=== PATIENT | female | born 1945 | race Caucasian/White ===

== ENCOUNTER 2016-08-21 10:30 | Emergency (ER) | payer MEDICARE ==
[2016-08-21] MEDS ORDERED: NS 0.9% 1000 ML* 2,000 ML IV ONE (12:08)
[2016-08-21 12:24] LABS: Hematocrit 43 % (35-47); Mean Corpuscular HGB Conc 33 g/dl (31-36); Mean Corpuscular Hemoglobin 28 pg (27-31); Mean Corpuscular Volume 87 fL (80-97); Mean Platelet Volume 7 um3 (7.4-10.4); Red Blood Count 4.94 10^6/ul (4.0-5.4); Red Cell Distribution Width 14 % (10.5-15); White Blood Count 13.8 10^3/ul (3.5-10.8)
[2016-08-21 12:35] LABS: Urine Bacteria Absent (Absent); Urine Bilirubin Negative (Negative); Urine Glucose Negative (Negative); Urine Nitrite Negative (Negative)
[2016-08-21 12:37] LABS: Albumin 4.1 g/dL (3.2-5.2); C Reactive Protein 1.1 mg/L (< 5.00); Calcium 9.7 mg/dL (8.6-10.3); EGFR African American 89.6 (>60); EGFR Non-African American 69.7 (>60); Globulin 2.8 g/dL (2-4); Potassium 4.2 mmol/L (3.5-5.0); Total Bilirubin 0.3 mg/dL (0.2-1.0); Total Protein 6.9 g/dL (6.4-8.9)
[2016-08-21 12:38] LABS: Troponin I 0.01 ng/mL (<0.04)
[2016-08-21] MEDS ORDERED: Iohexol 300* (CONTRAST) 10 ML SDV IV ONE (13:20)
--- NOTE | 2016-08-21 15:06 | RAD ---
CLINICAL HISTORY: Left-sided abdominal pain, anorexia, colitis COMPARISON: April 27, 2010 TECHNIQUE: Multiple contiguous axial CT scans were obtained of the abdomen and pelvis after the administration of intravenous contrast. Coronal and sagittal multiplanar reformations are submitted for review. Oral contrast was administered. Delayed images were obtained through the abdomen FINDINGS: LUNG BASES: The lung bases are clear. LIVER: The liver is normal in shape, size, contour, and attenuation. BILE DUCTS: There is no intrahepatic or extrahepatic biliary dilatation. GALLBLADDER: The gallbladder is normal, without pericholecystic inflammatory change. PANCREAS: The pancreas is normal, without mass or ductal dilatation. SPLEEN: There are calcified granulomas of the spleen UPPER GI TRACT: Evaluation of the gastrointestinal tract is limited by incomplete gastric distention. The upper GI tract is unremarkable. SMALL BOWEL AND MESENTERY: The small bowel is normal in contour, course, and caliber. There is no obstruction or dilatation. COLON: There are multiple diverticula of the sigmoid colon. There is no pericolonic inflammatory change. There is a tubular, vermiform, hollow viscus that is blind ending, and originates from the cecum, consistent with a normal appendix. There is no periappendiceal inflammatory change. ADRENALS: Normal bilaterally. KIDNEYS: There is a small exophytic cyst of the midpole of the left kidney. This is stable from the previous examination BLADDER: The bladder is smooth in contour. PELVIC ORGANS: The uterus and adnexa are grossly normal for technique. AORTA: The aorta is normal. IVC: Unremarkable LYMPH NODES: There is no lymphadenopathy by size criteria. ABDOMINAL WALL: There is no evidence for abdominal wall hernia. BONES AND SOFT TISSUES: There is osteoarthritis of the hips. There is osteitis pubis OTHER: None IMPRESSION: DIVERTICULOSIS
[2016-08-21 16:23] VITALS: BP 149/85
--- NOTE | 2016-08-21 17:47 | ED ---
jennifer Hsieh Timothy, scribed for Sam Estrella MD on 08/21/16 at 1120 . Abdominal Pain/Female - HPI Summary HPI Summary: Mayi Marley is a 70 yo female presenting to [facility] with 7/10 pelvic pain radiating to her left flank and groin since 08/15/16. She states she has noticed her stomach gurgling in the past 3 days, and it feels distended now. She has some mild dysuria. She states her pain increases when she eats food. She also has numbness bilaterally in her feet. she states she was sick 2 weeks ago and had diarrhea. She denies vomiting, vaginal bleeding, fever. She self-medicated with ABx for several days under the assumption she had a UTI, but her PCP has informed her she does not have a UTI. She has been on ABx for a long time due to lyme disease. Her MHx includes palpitations, chronic sinus problems, Ciliac disease, irritable bowel, osteoarthritis, claustrophobia. Her PCP is Dr. Mike. - History of Current Complaint Chief Complaint: EDAbdPain Stated Complaint: PELVIC PAIN Time Seen by Provider: 08/21/16 11:22 Hx Obtained From: Patient ?: No Onset/Duration: Sudden Onset, Lasting Days, Still Present Timing: Constant Severity Initially: Moderate Severity Currently: Moderate Pain Intensity: 7 Pain Scale Used: 0-10 Numeric Location: Suprapubic, Groin, Flank Radiates: No Aggravating Factor(s): Food Associated Signs and Symptoms: Positive: Other: - dysuria. 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 Denies: Hx Hypertension, Hx Pacemaker/ICD Respiratory History: Reports: Other Respiratory Problems/Disorders - CHRONIC SINUS PROBLEMS-POST NASAL DRIP GI History: Reports: Hx Irritable Bowel, Other GI Disorders - CILIAC DISEASE History: Denies: Hx Dialysis, Hx Renal Disease Musculoskeletal History: Reports: Hx Arthritis - OSTEO Denies: Hx Osteoporosis Sensory History: Reports: Hx Contacts or Glasses - READING GLASSES Denies: Hx Hearing Aid Opthamlomology History: Reports: Hx Contacts or Glasses - READING GLASSES Psychiatric History: Denies: Hx Eating Disorder, Hx Panic Disorder, Hx of Violent Episodes Against Others - Cancer History Hx Chemotherapy: No Hx Radiation Therapy: No - Surgical History Surgery Procedure, Year, and Place: TUBAL LIGATION-1974 WISDOM TEETH REMOVED COLONOSCOPY Hx Anesthesia Reactions: No - Immunization History Date of Tetanus Vaccine: unknown Infectious Disease History: No Infectious Disease History: Denies: Traveled Outside the [place] in Last 30 Days - Family History Known Family History: Positive: Other - breast CA - Social History Alcohol Use: Weekly Alcohol Amount: WINE ON OCCASION Substance Use Type: Reports: None Smoking Status (MU): Former Smoker Type: Cigarettes Amount Used/How Often: 1 PACK EVERY 2 WEEKS X 10 YRS Review of Systems Constitutional: Negative Eyes: Negative ENT: Negative Cardiovascular: Negative Respiratory: Negative Gastrointestinal: Other - "stomach gurgling" Positive: Diarrhea Genitourinary: Other - pelvic pain Positive: dysuria. Negative: discharge Musculoskeletal: Negative Skin: Negative Positive: Numbness - bilateral feet Psychological: Normal All Other Systems Reviewed And Are Negative: Yes Physical Exam - Summary Physical Exam Summary: The patient is well-nourished in no acute distress and in no acute pain. Pt is slightly hard of hearing. The skin is warm and dry and skin color reflects adequate perfusion. HEENT: The head is normocephalic and atraumatic. The pupils are equal and reactive. The conjunctivae are clear and without drainage. Nares are patent and without drainage. Mouth reveals dry mucous membranes and the throat is without erythema and exudate. The external ears are intact. The ear canals are patent and without drainage. The tympanic membranes are intact. Neck is supple with full range of motion and non-tender. There are no carotid bruits. There is no neck vein distension. Respiratory: Chest is non-tender. Lungs are clear to auscultation and breath sounds are symmetrical and equal. Cardiovascular: Hear is regular rate and rhythm. There is no murmur or rub auscultated. There is no peripheral edema and pulses are symmetrical and equal. Good pulses distally. Abdomen: The abdomen is soft and tender in the LUQ and LLQ. There are hyperactive bowel sounds heard in all four quadrants and there is no organomegaly palpated. Left muscular back tenderness. No abd bruits. Musculoskeletal: There is no back pain noted. Extremities are non-tender with full range of motion. There is good capillary refill. There is no peripheral edema or calf tenderness elicited. No pain with flexion of her legs. Neurological: Patient is alert and oriented to person, place and time. The patient has symmetrical motor strength in all four extremities. Cranial nerves are grossly intact. Deep tendon reflexes are symmetrical and equal in all four extremities. Psychiatric: The patient has an appropriate affect and does not exhibit any depression. She is slightly anxious. Triage Information Reviewed: Yes Vital Signs On Initial Exam: Initial Vitals Temp Pulse Resp BP Pulse Ox 96.8 F 87 16 127/65 99 08/21/16 10:41 08/21/16 10:41 08/21/16 10:41 08/21/16 10:41 08/21/16 10:41 Vital Signs Reviewed: Yes Diagnostics - Vital Signs Vital Signs Temp Pulse Resp BP Pulse Ox 08/21/16 10:41 96.8 F 87 16 127/65 99 - Laboratory Lab Results: Lab Results 08/21/16 08/21/16 08/21/16 Range/Units 11:35 11:35 11:35 WBC 13.8 H (3.5-10.8) 10^3/ul RBC 4.94 (4.0-5.4) 10^6/ul Hgb 14.0 (12.0-16.0) g/dl Hct 43 (35-47) % MCV 87 (80-97) fL MCH 28 (27-31) pg MCHC 33 (31-36) g/dl RDW 14 (10.5-15) % Plt Count 296 (150-450) 10^3/ul MPV 7 L (7.4-10.4) um3 Neut % (Auto) 82.4 (38-83) % Lymph % (Auto) 9.1 L (25-47) % [place] % (Auto) 7.9 (1-9) % Eos % (Auto) 0.1 (0-6) % Baso % (Auto) 0.5 (0-2) % Absolute Neuts (auto) 11.4 H (1.5-7.7) 10^3/ul Absolute Lymphs (auto) 1.3 (1.0-4.8) 10^3/ul Absolute Monos (auto) 1.1 H (0-0.8) 10^3/ul Absolute Eos (auto) 0 (0-0.6) 10^3/ul Absolute Basos (auto) 0.1 (0-0.2) 10^3/ul Absolute Nucleated RBC 0.01 10^3/ul Nucleated RBC % 0 Sodium 132 L (133-145) mmol/L Potassium 4.2 (3.5-5.0) mmol/L Chloride 99 L (101-111) mmol/L Carbon Dioxide 27 (22-32) mmol/L Anion Gap 6 (2-11) mmol/L BUN 13 (6-24) mg/dL Creatinine 0.81 (0.51-0.95) mg/dL Est GFR ( Amer) 89.6 (>60) Est GFR (Non-Af Amer) 69.7 (>60) BUN/Creatinine Ratio 16.0 (8-20) Glucose 84 (70-100) mg/dL Lactic Acid (0.5-2.0) mmol/L Calcium 9.7 (8.6-10.3) mg/dL Total Bilirubin 0.30 (0.2-1.0) mg/dL AST 23 (13-39) U/L ALT 18 (7-52) U/L Alkaline Phosphatase 73 (34-104) U/L Total Creatine Kinase 61 (10-223) U/L Troponin I 0.01 (<0.04) ng/mL C-Reactive Protein 1.10 (< 5.00) mg/L B-Natriuretic Peptide ( - 100) pg/mL Total Protein 6.9 (6.4-8.9) g/dL Albumin 4.1 (3.2-5.2) g/dL Globulin 2.8 (2-4) g/dL Albumin/Globulin Ratio 1.5 (1-3) Amylase 48 (29-103) U/L Lipase 25 (11.0-82.0) U/L Urine Color Yellow Urine Appearance Clear Urine pH 6.0 (5-9) Ur Specific [place] 1.016 (1.010-1.030) Urine Protein Negative (Negative) Urine Ketones Negative (Negative) Urine Blood Negative (Negative) Urine Nitrate Negative (Negative) Urine Bilirubin Negative (Negative) Urine Urobilinogen Negative (Negative) Ur Leukocyte Esterase Trace H (Negative) Urine WBC (Auto) Trace(0-5/hpf) (Absent) Urine RBC (Auto) 2+(6-10/hpf) H (Absent) Ur Squamous Epith Cells Present H (Absent) Urine Bacteria Absent (Absent) Urine Glucose Negative (Negative) Urine Ascorbic Acid * H (Negative) 08/21/16 08/21/16 Range/Units 11:35 11:35 WBC (3.5-10.8) 10^3/ul RBC (4.0-5.4) 10^6/ul Hgb (12.0-16.0) g/dl Hct (35-47) % MCV (80-97) fL MCH (27-31) pg MCHC (31-36) g/dl RDW (10.5-15) % Plt Count (150-450) 10^3/ul MPV (7.4-10.4) um3 Neut % (Auto) (38-83) % Lymph % (Auto) (25-47) % [place] % (Auto) (1-9) % Eos % (Auto) (0-6) % Baso % (Auto) (0-2) % Absolute Neuts (auto) (1.5-7.7) 10^3/ul Absolute Lymphs (auto) (1.0-4.8) 10^3/ul Absolute Monos (auto) (0-0.8) 10^3/ul Absolute Eos (auto) (0-0.6) 10^3/ul Absolute Basos (auto) (0-0.2) 10^3/ul Absolute Nucleated RBC 10^3/ul Nucleated RBC % Sodium (133-145) mmol/L Potassium (3.5-5.0) mmol/L Chloride (101-111) mmol/L Carbon Dioxide (22-32) mmol/L Anion Gap (2-11) mmol/L BUN (6-24) mg/dL Creatinine (0.51-0.95) mg/dL Est GFR ( Amer) (>60) Est GFR (Non-Af Amer) (>60) BUN/Creatinine Ratio (8-20) Glucose (70-100) mg/dL Lactic Acid 1.3 (0.5-2.0) mmol/L Calcium (8.6-10.3) mg/dL Total Bilirubin (0.2-1.0) mg/dL AST (13-39) U/L ALT (7-52) U/L Alkaline Phosphatase (34-104) U/L Total Creatine Kinase (10-223) U/L Troponin I (<0.04) ng/mL C-Reactive Protein (< 5.00) mg/L B-Natriuretic Peptide 12 ( - 100) pg/mL Total Protein (6.4-8.9) g/dL Albumin (3.2-5.2) g/dL Globulin (2-4) g/dL Albumin/Globulin Ratio (1-3) Amylase (29-103) U/L Lipase (11.0-82.0) U/L Urine Color Urine Appearance Urine pH (5-9) Ur Specific Gonzales (1.010-1.030) Urine Protein (Negative) Urine Ketones (Negative) Urine Blood (Negative) Urine Nitrate (Negative) Urine Bilirubin (Negative) Urine Urobilinogen (Negative) Ur Leukocyte Esterase (Negative) Urine WBC (Auto) (Absent) Urine RBC (Auto) (Absent) Ur Squamous Epith Cells (Absent) Urine Bacteria (Absent) Urine Glucose (Negative) Urine Ascorbic Acid (Negative) Result Diagrams: 08/21/16 11:35 08/21/16 11:35 Lab Statement: Any lab studies that have been ordered have been reviewed, and results considered in the medical decision making process. - CT A/P CT Interpretation: Positive (See Comments) - IMPRESSION: DIVERTICULOSIS CT Interpretation Completed By: Radiologist - EKG 1240 Cardiac Rate: NL - @ 59 BPM EKG Interpretation: NSR @ 59 BPM, normal EKG Re-Evaluation - Re-Evaluation First Eval Re-Evaluation Time: 15:25 Change: Worse Comment: Pt is still in pain and requesting a pelvic exam. Informed Pt of results of imaging and lab studies. Second Eval Re-Evaluation Time: 15:45 Change: Unchanged Comment: Pelvic Exam: whitish discharge, tenderness over right ovary. No cervical motion. No redness or swelling. Tested for gardnerella and yeast. Pt does not want antibiotics. Pt feels uncomofrtable going home, explained to Pt that there are not enough criteria met for admission to [facility]. She denies vomiting and fever Abdominal Pain Fem Course/Dx - Course Course Of Treatment: Mayi Marley is a 70 yo female presenting to [facility] with pelvic pain since 08/15/16. After clinical examination, CT A/P with an impression of diverticulosis and review of her EKG and lab work, she will be discharged home with abdominal pain and appropriate instructions - Diagnoses Differential Diagnosis: Positive: Appendicitis, Diverticulitis, Gall Bladder Disease, Urinary Tract Infection, Other - diverticulosis, bv, RENAL LITHIASIS Provider Diagnoses: Abdominal pain Discharge - Discharge Plan Condition: Stable Disposition: HOME Prescriptions: traMADol TAB* [Ultram*] 50 mg PO Q6HR PRN #30 tab MDD 4 PRN Reason: pain Patient Education Materials: Acute Abdominal Pain (ED) Forms: *Work Release Referrals: Seth Gama MD [Primary Care Provider] - 2 Days Anatoliy Mike MD [Medical Doctor] - 2 Days Additional Instructions: Please follow up with Dr. Mike and your primary care physician regarding your visit to the emergency department today. Return to the emergency department with any new or recurring symptoms. The documentation as recorded by the jennifer muhammad Timothy accurately reflects the service I personally performed and the decisions made by , Sam Estrella MD.
== END 2016-08-21 16:24 | disposition home or self-care (01) ==
LOC: ED 10:30
DX: R10.9 Unspecified abdominal pain (principal); R94.31 Abnormal electrocardiogram [ECG] [EKG]; R00.1 Bradycardia, unspecified; R10.819 Abdominal tenderness, unspecified site; Z87.891 Personal history of nicotine dependence; K90.0 Celiac disease; Z88.0 Allergy status to penicillin
CPT/HCPCS: 36415; 74177; 80053; 81003; 81015; 82150; 82550; 83605; 83690; 83880; 84484; 85025; 86140; 87086; 87480; 87510; 87660; 93005; 96360; 99284; Q9967

== ENCOUNTER 2016-08-24 10:27 | Inpatient (IN) | payer MEDICARE ==
[2016-08-24] MEDS ORDERED: NS 0.9% 1000 ML* 2,000 ML IV ONE (11:29)
[2016-08-24 12:23] LABS: Hematocrit 42 % (35-47); Hemoglobin 13.6 g/dl (12.0-16.0); Mean Corpuscular HGB Conc 33 g/dl (31-36); Mean Corpuscular Hemoglobin 29 pg (27-31); Mean Corpuscular Volume 87 fL (80-97); Mean Platelet Volume 7 um3 (7.4-10.4); Red Blood Count 4.77 10^6/ul (4.0-5.4); Red Cell Distribution Width 14 % (10.5-15); White Blood Count 11.4 10^3/ul (3.5-10.8)
--- NOTE | 2016-08-24 12:35 | RAD ---
INDICATION: Headache and weakness. COMPARISON: Comparison is made with a prior MRI of the brain from February 09, [address] of the brain from March 16, 2003. TECHNIQUE: Contiguous axial sections of the brain were obtained from the skull base to the vertex without contrast. FINDINGS: The ventricles, cisterns and sulci are enlarged consistent with age-related atrophy. No significant focal abnormality or mass effect is seen. There is no evidence for hemorrhage. No significant focal osseous abnormality is seen. The visualized portion of the paranasal sinuses and mastoid air cells appear clear. IMPRESSION: NO EVIDENCE FOR GROSS ACUTE INFARCT, MASS EFFECT OR HEMORRHAGE.
[2016-08-24 12:43] LABS: ALT 17 U/L (7-52); AST 20 U/L (13-39); Albumin 3.8 g/dL (3.2-5.2); Alkaline Phosphatase 69 U/L (34-104); Anion Gap 7 mmol/L (2-11); BUN/Creatinine Ratio 29.6 (8-20); Blood Urea Nitrogen 21 mg/dL (6-24); C Reactive Protein 2.05 mg/L (< 5.00); CO2 Carbon Dioxide 27 mmol/L (22-32); Calcium 9.3 mg/dL (8.6-10.3); Chloride 100 mmol/L (101-111); EGFR African American 104.4 (>60); EGFR Non-African American 81.2 (>60); Globulin 2.8 g/dL (2-4); Glucose 97 mg/dL (70-100); Magnesium 2.2 mg/dL (1.9-2.7); Potassium 4.2 mmol/L (3.5-5.0); Sodium 134 mmol/L (133-145); Total Protein 6.6 g/dL (6.4-8.9)
[2016-08-24 12:43] LABS: Urine Bacteria Absent (Absent); Urine Bilirubin Negative (Negative); Urine Glucose Negative (Negative); Urine Nitrite Negative (Negative)
[2016-08-24 13:03] LABS: Acetaminophen < 15 mcg/mL; Alcohol < 10 mg/dL (<10); Salicylate < 2.50 mg/dL (<30)
[2016-08-24 13:13] LABS: TSH (Thyroid Stimulating Horm) 1.47 mcIU/mL (0.34-5.60)
--- NOTE | 2016-08-24 14:18 | ED ---
Aries Hsieh Salem, scribed for Sam Estrella MD on 08/24/16 at 1131 . Abdominal Pain/Female - HPI Summary HPI Summary: Patient is a 70 y/o female who presents to the ED with abd pain. She was in the ER 3 days ago for similar pain. Pt reports trouble sleeping, weakness, and loss of appetite. She also reports pain in the left side of her head and an ear infection in the left ear. She states she can no longer live like this and that she does not want to be sent home like this. - History of Current Complaint Chief Complaint: [facility] Stated Complaint: mhe Time Seen by Provider: 08/24/16 11:02 Hx Obtained From: Patient Onset/Duration: Gradual Onset, Lasting Days Severity Initially: Moderate Severity Currently: Moderate Pain Intensity: 9 Pain Scale Used: 0-10 Numeric Aggravating Factor(s): Nothing Alleviating Factor(s): Nothing Associated Signs and Symptoms: Positive: Other: - Weakness. Trouble sleeping. Loss of appetite. 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 Denies: Hx Hypertension, Hx Pacemaker/ICD Respiratory History: Reports: Other Respiratory Problems/Disorders - CHRONIC SINUS PROBLEMS-POST NASAL DRIP GI History: Reports: Hx Irritable Bowel, Other GI Disorders - CILIAC DISEASE History: Denies: Hx Dialysis, Hx Renal Disease Musculoskeletal History: Reports: Hx Arthritis - OSTEO Denies: Hx Osteoporosis Sensory History: Reports: Hx Contacts or Glasses - READING GLASSES Denies: Hx Hearing Aid Opthamlomology History: Reports: Hx Contacts or Glasses - READING GLASSES Psychiatric History: Denies: Hx Eating Disorder, Hx Panic Disorder, Hx of Violent Episodes Against Others - Cancer History Hx Chemotherapy: No Hx Radiation Therapy: No - Surgical History Surgery Procedure, Year, and Place: TUBAL LIGATION-1974 WISDOM TEETH REMOVED COLONOSCOPY Hx Anesthesia Reactions: No - Immunization History Date of Tetanus Vaccine: unknown Infectious Disease History: No Infectious Disease History: Denies: Traveled Outside the [place] in Last 30 Days - Family History Known Family History: Positive: Other - breast CA - Social History Alcohol Use: Weekly Alcohol Amount: WINE ON OCCASION Substance Use Type: Reports: None Smoking Status (MU): Former Smoker Type: Cigarettes Amount Used/How Often: 1 PACK EVERY 2 WEEKS X 10 YRS Review of Systems Positive: Other - Trouble sleeping. . Negative: Fever Positive: Ear Ache - Left. Positive: Other - Loss of appetite. Positive: Weakness All Other Systems Reviewed And Are Negative: Yes Physical Exam - Summary Physical Exam Summary: The patient appears weak and lethargic. The skin is warm and dry and skin color reflects adequate perfusion. HEENT: The head is normocephalic and atraumatic. The pupils are equal and reactive. The conjunctivae are clear and without drainage. Nares are patent and without drainage. Mouth reveals dry mucous membranes and the throat is without erythema and exudate. The external ears are intact. The ear canals are patent and without drainage or erythema. The tympanic membranes are intact in both ears. Neck is supple with full range of motion and non-tender. There are no carotid bruits. There is no neck vein distension. Respiratory: Chest is non-tender. Lungs are clear to auscultation and breath sounds are symmetrical and equal. Cardiovascular: Hear is regular rate and rhythm. There is no murmur or rub auscultated. There is no peripheral edema and pulses are symmetrical and equal. Abdomen: The abdomen is soft. LUQ pain unchanged from 3 days ago. Musculoskeletal: There is no back pain noted. Extremities are non-tender with full range of motion. There is good capillary refill. There is no peripheral edema or calf tenderness elicited. Left lumbar pericerebral pain. Neurological: Patient is alert and oriented to person, place and time. The patient has symmetrical motor strength in all four extremities. Psychiatric: The patient depressed and uncomfortable. Does not appear to have SI. Triage Information Reviewed: Yes Vital Signs On Initial Exam: Initial Vitals Temp Pulse Resp BP Pulse Ox 97.1 F 80 16 118/65 99 08/24/16 10:31 08/24/16 10:31 08/24/16 10:31 08/24/16 10:31 03/23/17 10:31 Vital Signs Reviewed: Yes Diagnostics - Vital Signs Vital Signs Temp Pulse Resp BP Pulse Ox 08/24/16 11:00 74 13 96 08/24/16 10:54 74 18 122/62 96 08/24/16 10:52 77 15 97 08/24/16 10:31 97.1 F 80 16 118/65 99 - Laboratory Lab Results: Lab Results 08/24/16 08/24/16 08/24/16 Range/Units 12:10 12:10 12:10 WBC 11.4 H (3.5-10.8) 10^3/ul RBC 4.77 (4.0-5.4) 10^6/ul Hgb 13.6 (12.0-16.0) g/dl Hct 42 (35-47) % MCV 87 (80-97) fL MCH 29 (27-31) pg MCHC 33 (31-36) g/dl RDW 14 (10.5-15) % Plt Count 285 (150-450) 10^3/ul MPV 7 L (7.4-10.4) um3 Neut % (Auto) 79.0 (38-83) % Lymph % (Auto) 13.3 L (25-47) % Jackson % (Auto) 6.9 (1-9) % Eos % (Auto) 0.2 (0-6) % Baso % (Auto) 0.6 (0-2) % Absolute Neuts (auto) 9.0 H (1.5-7.7) 10^3/ul Absolute Lymphs (auto) 1.5 (1.0-4.8) 10^3/ul Absolute Monos (auto) 0.8 (0-0.8) 10^3/ul Absolute Eos (auto) 0 (0-0.6) 10^3/ul Absolute Basos (auto) 0.1 (0-0.2) 10^3/ul Absolute Nucleated RBC 0 10^3/ul Nucleated RBC % 0 Sodium 134 (133-145) mmol/L Potassium 4.2 (3.5-5.0) mmol/L Chloride 100 L (101-111) mmol/L Carbon Dioxide 27 (22-32) mmol/L Anion Gap 7 (2-11) mmol/L BUN 21 (6-24) mg/dL Creatinine 0.71 (0.51-0.95) mg/dL Est GFR ( Amer) 104.4 (>60) Est GFR (Non-Af Amer) 81.2 (>60) BUN/Creatinine Ratio 29.6 H (8-20) Glucose 97 (70-100) mg/dL Lactic Acid 0.9 (0.5-2.0) mmol/L Calcium 9.3 (8.6-10.3) mg/dL Magnesium 2.2 (1.9-2.7) mg/dL Total Bilirubin 0.30 (0.2-1.0) mg/dL AST 20 (13-39) U/L ALT 17 (7-52) U/L Alkaline Phosphatase 69 (34-104) U/L Troponin I 1.53 H* (<0.04) ng/mL C-Reactive Protein 2.05 (< 5.00) mg/L B-Natriuretic Peptide ( - 100) pg/mL Total Protein 6.6 (6.4-8.9) g/dL Albumin 3.8 (3.2-5.2) g/dL Globulin 2.8 (2-4) g/dL Albumin/Globulin Ratio 1.4 (1-3) TSH 1.47 (0.34-5.60) mcIU/mL Urine Color Urine Appearance Urine pH (5-9) Ur Specific [place] (1.010-1.030) Urine Protein (Negative) Urine Ketones (Negative) Urine Blood (Negative) Urine Nitrate (Negative) Urine Bilirubin (Negative) Urine Urobilinogen (Negative) Ur Leukocyte Esterase (Negative) Urine WBC (Auto) (Absent) Urine RBC (Auto) (Absent) Ur Squamous Epith Cells (Absent) Urine Bacteria (Absent) Urine Glucose (Negative) Salicylates < 2.50 (<30) mg/dL Acetaminophen < 15 mcg/mL Serum Alcohol < 10 (<10) mg/dL 08/24/16 08/24/16 Range/Units 12:10 12:27 WBC (3.5-10.8) 10^3/ul RBC (4.0-5.4) 10^6/ul Hgb (12.0-16.0) g/dl Hct (35-47) % MCV (80-97) fL MCH (27-31) pg MCHC (31-36) g/dl RDW (10.5-15) % Plt Count (150-450) 10^3/ul MPV (7.4-10.4) um3 Neut % (Auto) (38-83) % Lymph % (Auto) (25-47) % Jackson % (Auto) (1-9) % Eos % (Auto) (0-6) % Baso % (Auto) (0-2) % Absolute Neuts (auto) (1.5-7.7) 10^3/ul Absolute Lymphs (auto) (1.0-4.8) 10^3/ul Absolute Monos (auto) (0-0.8) 10^3/ul Absolute Eos (auto) (0-0.6) 10^3/ul Absolute Basos (auto) (0-0.2) 10^3/ul Absolute Nucleated RBC 10^3/ul Nucleated RBC % Sodium (133-145) mmol/L Potassium (3.5-5.0) mmol/L Chloride (101-111) mmol/L Carbon Dioxide (22-32) mmol/L Anion Gap (2-11) mmol/L BUN (6-24) mg/dL Creatinine (0.51-0.95) mg/dL Est GFR ( Amer) (>60) Est GFR (Non-Af Amer) (>60) BUN/Creatinine Ratio (8-20) Glucose (70-100) mg/dL Lactic Acid (0.5-2.0) mmol/L Calcium (8.6-10.3) mg/dL Magnesium (1.9-2.7) mg/dL Total Bilirubin (0.2-1.0) mg/dL AST (13-39) U/L ALT (7-52) U/L Alkaline Phosphatase (34-104) U/L Troponin I (<0.04) ng/mL C-Reactive Protein (< 5.00) mg/L B-Natriuretic Peptide 30 ( - 100) pg/mL Total Protein (6.4-8.9) g/dL Albumin (3.2-5.2) g/dL Globulin (2-4) g/dL Albumin/Globulin Ratio (1-3) TSH (0.34-5.60) mcIU/mL Urine Color Yellow Urine Appearance Clear Urine pH 6.0 (5-9) Ur Specific [place] 1.016 (1.010-1.030) Urine Protein Negative (Negative) Urine Ketones Negative (Negative) Urine Blood Negative (Negative) Urine Nitrate Negative (Negative) Urine Bilirubin Negative (Negative) Urine Urobilinogen Negative (Negative) Ur Leukocyte Esterase Trace H (Negative) Urine WBC (Auto) Trace(0-5/hpf) (Absent) Urine RBC (Auto) 1+(3-5/hpf) H (Absent) Ur Squamous Epith Cells Present H (Absent) Urine Bacteria Absent (Absent) Urine Glucose Negative (Negative) Salicylates (<30) mg/dL Acetaminophen mcg/mL Serum Alcohol (<10) mg/dL Result Diagrams: 08/24/16 12:10 08/24/16 12:10 Lab Statement: Any lab studies that have been ordered have been reviewed, and results considered in the medical decision making process. - CT BRAIN CT Interpretation Completed By: Radiologist - IMPRESSION: NO EVIDENCE FOR GROSS ACUTE INFARCT, MASS EFFECT OR HEMORRHAGE. - EKG 1150 EKG Interpretation: Regular sinus rhythm @ 68 bpm. Nml axis. Re-Evaluation - Re-Evaluation First Eval Re-Evaluation Time: 01:50 Comment: Reviewed labs with pt and discussed negative CAT scan. Informed her of plan to admit. Answered pts questions and heard complaints. Abdominal Pain Fem Course/Dx - Diagnoses Differential Diagnosis: Positive: MA, Other - depression, left sided abdominal pain chronic, altered mental status, dehydration Provider Diagnoses: Altered mental state, Elevated troponin, Depressed, Abdominal pain, Dehydration - Provider Notifications Discussed Care Of Patient With: Dr. Raza (hospitalist) @ 1253. Will admit. Discharge - Discharge Plan Condition: Stable Disposition: ADMITTED TO [facility] documentation as recorded by the Aries muhammad Salem accurately reflects the service I personally performed and the decisions made by , Sam Estrella MD.
[2016-08-24] MEDS ORDERED: ALPRAZolam TAB* 0.25 MG PO PRN (14:33)
[2016-08-24 15:37] LABS: Troponin I 0.01 ng/mL (<0.04)
[2016-08-24] MEDS: Dicyclomine CAP* 10 MG PO SCH ×2 (15:42→16:30)
[2016-08-24] MEDS: Simethicone CHEW TAB* 80 MG PO SCH ×2 (15:43→20:33)
--- NOTE | 2016-08-24 17:57 | RAD ---
Indication: Pelvic pain. Real-time sonography of the pelvis was performed utilizing endovaginal technique. The uterus measures 4.3 x 1.8 x 3.9 cm. Endometrial echo measures 3.1 mm. The right ovary measures 15 x 8 x 10 mm. The left ovary measures 21 x 11 x 11 mm. Doppler interrogation demonstrates flow in both ovaries. Scattered calcifications are in the left ovary. IMPRESSION: No adnexal masses are noted.
--- NOTE | 2016-08-24 18:52 | HP ---
HISTORY AND PHYSICAL: DATE OF ADMISSION: 08/24/16 PRIMARY CARE PROVIDER: Dr. Gama. CONSULTING PSYCHIATRIST: Dr. Daniel. ATTENDING PHYSICIAN: Nuris Rabago MD* (this report is being dictated by Jc Lopez NP). CHIEF COMPLAINT: 1. Lower abdominal pain. 2. Cannot think. 3. Weak, cannot function. HISTORY OF PRESENT ILLNESS: Mrs. Marley is a 70-year-old female patient who really has no past medical history. She states she may have a history of anxiety but over the last several days she has been having left lower quadrant abdominal pain off and on. Her daughter who is with her states that to her knowledge, she thinks she may have been having this for some time and then when I specifically ask the patient for a timeframe, she states she cannot tell me how long this has been going on for, but she states that if we cannot figure this out, she just does not have any will to continue going forward. I specifically asked her if she would take her life and then she replied to me that she would not want to continue going if she cannot figure out what this pain is. She states that she has been having lower quadrant abdominal pain, described as a sharp stabbing pain. She has been having normal bowel movements. She states that she feels like her thoughts are disorganized and scattered. She cannot focus on one thought and she states she thinks she is crazy and she asked me what is wrong with her. She did admit to having some dysuria. She states that she just cannot think and she has scattered brain in her words, so she called Mental Health today and they deferred her to the hospital. She does follow with Dr. Mcgill. She does state that she has been having palpitations and she has been feeling anxious but she denies specifically any chest pain or any shortness of breath. She states that she has not been having any vomiting or diarrhea or bloody stools. She was concerned, came to the ER per the direction of Mental Health and was evaluated here and the troponin was drawn and it was noted to be 1.52, so the hospitalist service was asked to evaluate for admission, but again she has not had any cardiac symptoms. She did take an aspirin today. PAST MEDICAL HISTORY: Anxiety. PAST SURGICAL HISTORY: 1. She has had a I and D from a cat bite. 2. She has had tubal ligation. HOME MEDICATIONS: Include: 1. Cipro 500 mg b.i.d. 2. Tramadol 50 mg every 6 hours as needed. ALLERGIES TO MEDICATIONS: PENICILLIN and SULFA. FAMILY HISTORY: Mother had ovarian cancer. Father had a history of lung cancer. SOCIAL HISTORY: She is a former smoker. She lives alone. Surrogate decision maker is her daughter. She does not drink alcohol. She does not use recreational drugs. REVIEW OF SYSTEMS: There is no documented fever. She denied having any significant weight change. There was no double vision. She denied having any rhinorrhea or any sore throat. There was no thyroid enlargement. She denied having any chest pain. There was no orthopnea. There was no nocturnal dyspnea. There was no abdominal pain. There was no nausea. No vomiting. There was no dysuria. No frequency. No loss of consciousness. No pruritus. No skin ulcerations. Review of 14 systems was completed, all others negative. PHYSICAL EXAMINATION GENERAL: At this time, Mrs. Marley is a 70-year-old female patient. She is sitting in the ER stretcher. She does not appear to be in any acute distress. VITAL SIGNS: Blood pressure 116/58, pulse 74, respirations 16, O2 sat 96%, and a temperature 97.1. HEENT: Head is atraumatic and normocephalic. Eyes; EOMs are intact. Sclerae anicteric and not pale. Throat: Oral mucosa appears to be moist. No oropharyngeal erythema. NECK: Supple. LUNGS: Clear to auscultation. No wheezes, rales, or rhonchi. HEART: Heart sounds S1 and S2. Regular rate and rhythm. No murmurs, rubs, or gallops. ABDOMEN: Soft, flat, nontender. Bowel sounds are present. She does admit to having pain on palpation to the left lower quadrant. No CVA tenderness. No rashes were noted. EXTREMITIES: Pulses are 2+ throughout. She is able to move all 4 extremities with 5/5 strength. SKIN: Intact. NEUROLOGIC: The patient is awake, alert, and oriented x3. She has no gross focal deficits. DIAGNOSTIC STUDIES/LABORATORY DATA: Labs today revealed a WBC of 11.4, RBC of 4.77, hemoglobin of 13.6, hematocrit 42, platelet count of 283. Sodium 134, potassium 4.2, chloride 100, bicarb 27, BUN 71, creatinine 0.71. Glucose 97, lactic 0.9, calcium 9.3, total bili 2.2, AST 20, ALT 17, total bili 0.3, troponin 1.53, CRP 2.05, albumin 3.8. TSH normal. Urine obtained showed trace leukocyte esterase, 1+ wbc. Toxicology negative. She just had a negative urine culture, negative Gardnerella, negative Constanza, negative Trichomonas. She had a CT of the abdomen and pelvis just 3 days ago, which showed diverticulosis. She had a brain CT obtained today, which showed no evidence for gross acute infarct, mass effect or hemorrhage. She did have a EKG obtained today, showed a normal sinus rhythm, rate of 68. No ST elevations or T-wave inversions. She had a previous EKG, it is similar. Old medical records were reviewed. ASSESSMENT AND PLAN: Mrs. Marley is a 70-year-old female patient, coming into the ER today with complaints of lower quadrant abdominal pain, disorganized thinking, and not wanting to go on. On evaluation, it was noted that she has an elevated troponin, and the hospitalist service was asked to evaluate. She will be admitted under observation status for: 1. Abdominal discomfort. The etiology of this is unclear. She does have diverticulosis, she has a slight white count. She has a recent CT scan that showed no diverticulitis. I think at this point, I would like to get a pelvic ultrasound. I will start her on Bentyl and simethicone. I do not think there is a role for antibiotics, if she spikes a fever then we will put her back on antibiotics and probably re-image her abdomen but at this point, there is no clear etiology as to why she is having this discomfort and I also put her on some p.r.n. Tylenol. 2. Elevated troponin. Etiology again unclear. My plan will be to cycle her troponins and get an echo. Her EKG's are stable. She has not had any chest pain whatsoever, so I do not think that this represents acute coronary syndrome. 3. Question of anxiety or patricia. I am going to have Psychiatry come to evaluate the patient as she does certainly have disorganized thought patterns. She does have flight of ideas and again she may benefit from a psychiatric evaluation and she does give thoughts of passive suicidal ideation, so I did think this would benefit us to go ahead and put her on one-to-one safety while she is still evaluated by Psychiatry. 4. DVT prophylaxis. She will be placed on heparin subcu. 5. Code status: Full code. 6. Fluid, electrolytes, nutrition. She can have a consistent carb diet. TIME SPENT: Time spent on the admission was 60 minutes, of which greater than half the time was spent [id number] with the patient obtaining my history and physical; other half the time was spent going over the plan of care with the patient and implementing the plan of care. I discussed the plan of care with my attending, Dr. Rabago, who is in agreement. JC LOPEZ NP CC: Dr. Gama; Dr. Daniel* [id number]/CPS #: [id number] MTDD
[2016-08-24] MEDS ORDERED: CMCS Melatonin (NF) 3 MG TAB PO PRN (20:05)
[2016-08-24] MEDS: Acetaminophen TAB* 325 MG PO PRN (20:30)
[2016-08-24] MEDS: Heparin VIAL(*) 5000 UNITS/ML VIAL (FIVE THOUSAND) SUBCUT SCH (20:37)
[2016-08-25] MEDS: Acetaminophen TAB* 325 MG PO PRN ×2 (01:44→05:42)
[2016-08-25] MEDS: Heparin VIAL(*) 5000 UNITS/ML VIAL (FIVE THOUSAND) SUBCUT SCH ×3 (05:41→21:37)
[2016-08-25 06:14] LABS: Hematocrit 40 % (35-47); Hemoglobin 13.2 g/dl (12.0-16.0); Mean Corpuscular HGB Conc 33 g/dl (31-36); Mean Corpuscular Hemoglobin 29 pg (27-31); Mean Corpuscular Volume 87 fL (80-97); Mean Platelet Volume 7 um3 (7.4-10.4); Red Blood Count 4.55 10^6/ul (4.0-5.4); Red Cell Distribution Width 14 % (10.5-15); White Blood Count 8.8 10^3/ul (3.5-10.8)
[2016-08-25 06:30] LABS: BUN/Creatinine Ratio 18.4 (8-20); Calcium 9.1 mg/dL (8.6-10.3); EGFR African American 96.5 (>60); HDL Cholesterol 51.8 mg/dL
[2016-08-25] MEDS ORDERED: ALPRAZolam TAB* 0.25 MG PO ONE (07:52)
[2016-08-25] MEDS: Dicyclomine CAP* 10 MG PO SCH ×3 (08:36→17:20)
[2016-08-25] MEDS: Simethicone CHEW TAB* 80 MG PO SCH ×2 (08:37→21:32)
[2016-08-25] MEDS: Aspirin Low Dose CHEW TAB* 81 MG PO SCH (08:37)
[2016-08-25] MEDS ORDERED: Cyclobenzaprine TAB* 10 MG PO PRN (11:52)
[2016-08-25] MEDS ORDERED: Ibuprofen TAB* 600 MG PO PRN (11:52)
--- NOTE | 2016-08-25 11:58 | PN ---
Subjective Date of Service: 08/25/16 Interval History: Patient seen this morning. States she continues to have LLQ pain and that her "mind has collapsed". Says pain has been ongoing for 1-2 weeks now. Has been tolerating PO with no issues, moving her bowels regularly. No blood in stool. Concerned about kidney stones and cancer. Some pain in L low back as well. Reports she thinks she has been having issues with panic attacks and that she has gone "off the edge". Says she had similar issues in the past around the time of her hand surgery and saw a therapist and took some medications, thinks maybe BZD. Family History: Unchanged from Admission Social History: Unchanged from Admission Past Medical History: Unchanged from Admission Objective Active Medications: Acetaminophen (Tylenol Tab*) 650 mg PO Q4H PRN Alprazolam (Xanax Tab*) 0.25 mg PO BEDTIME PRN Aspirin (Aspirin Low Dose Tab*) 81 mg PO DAILY TIA Dicyclomine HCl (Bentyl Cap*) 10 mg PO AC TIA Heparin Sodium (Porcine) (Heparin Vial(*)) 5,000 units SUBCUT Q8HR [facility] Melatonin (Melatonin (Nf)) 1 mg PO BEDTIME PRN Simethicone (Mylicon*) 40 mg PO BID [facility] Vital Signs 08/24/16 08/24/16 08/24/16 13:00 13:53 15:42 Temperature 97.1 F Pulse Rate 67 77 Respiratory 15 18 18 Rate Blood Pressure 134/62 (mmHg) O2 Sat by Pulse 96 97 Oximetry 08/24/16 08/24/16 08/24/16 16:00 16:14 16:30 Temperature Pulse Rate Respiratory 18 Rate Blood Pressure (mmHg) O2 Sat by Pulse 96 96 Oximetry 08/24/16 08/24/16 08/24/16 16:42 17:42 18:30 Temperature Pulse Rate 71 Respiratory 18 16 Rate Blood Pressure 124/72 (mmHg) O2 Sat by Pulse Oximetry 08/24/16 08/24/16 08/25/16 19:36 23:48 01:44 Temperature 98.7 F 98.5 F Pulse Rate 64 64 Respiratory 16 16 16 Rate Blood Pressure 121/61 111/53 (mmHg) O2 Sat by Pulse 95 Oximetry 08/25/16 08/25/16 08/25/16 03:44 08:21 08:36 Temperature Pulse Rate Respiratory 16 18 Rate Blood Pressure (mmHg) O2 Sat by Pulse 95 Oximetry 08/25/16 09:03 Temperature 98.4 F Pulse Rate 70 Respiratory 18 Rate Blood Pressure 116/57 (mmHg) O2 Sat by Pulse 98 Oximetry Oxygen Devices in Use Now: None Appearance: Elderly, F, laying in bed in NAD Eyes: No Scleral Icterus Ears/Nose/Mouth/Throat: Mucous Membranes Moist Neck: NL Appearance and Movements; NL JVP Respiratory: Symmetrical Chest Expansion and Respiratory Effort, Clear to Auscultation Cardiovascular: NL Sounds; No Murmurs; No JVD, RRR Abdominal: - - Soft, non-distended, TTP in LLQ, no rebound/guarding, BS+ Lymphatic: No Cervical Adenopathy Extremities: No Edema Skin: No Rash or Ulcers Neurological: Alert and Oriented x 3, - - no focal deficits Result Diagrams: 08/25/16 05:42 08/25/16 05:42 Additional Lab and Data: Lab Results 08/24/16 08/24/16 08/24/16 Range/Units 12:10 12:10 12:10 WBC 11.4 H (3.5-10.8) 10^3/ul RBC 4.77 (4.0-5.4) 10^6/ul Hgb 13.6 (12.0-16.0) g/dl Hct 42 (35-47) % MCV 87 (80-97) fL MCH 29 (27-31) pg MCHC 33 (31-36) g/dl RDW 14 (10.5-15) % Plt Count 285 (150-450) 10^3/ul MPV 7 L (7.4-10.4) um3 Neut % (Auto) 79.0 (38-83) % Lymph % (Auto) 13.3 L (25-47) % [place] % (Auto) 6.9 (1-9) % Eos % (Auto) 0.2 (0-6) % Baso % (Auto) 0.6 (0-2) % Absolute Neuts (auto) 9.0 H (1.5-7.7) 10^3/ul Absolute Lymphs (auto) 1.5 (1.0-4.8) 10^3/ul Absolute Monos (auto) 0.8 (0-0.8) 10^3/ul Absolute Eos (auto) 0 (0-0.6) 10^3/ul Absolute Basos (auto) 0.1 (0-0.2) 10^3/ul Absolute Nucleated RBC 0 10^3/ul Nucleated RBC % 0 Sodium 134 (133-145) mmol/L Potassium 4.2 (3.5-5.0) mmol/L Chloride 100 L (101-111) mmol/L Carbon Dioxide 27 (22-32) mmol/L Anion Gap 7 (2-11) mmol/L BUN 21 (6-24) mg/dL Creatinine 0.71 (0.51-0.95) mg/dL Est GFR ( Amer) 104.4 (>60) Est GFR (Non-Af Amer) 81.2 (>60) BUN/Creatinine Ratio 29.6 H (8-20) Glucose 97 (70-100) mg/dL Lactic Acid 0.9 (0.5-2.0) mmol/L Calcium 9.3 (8.6-10.3) mg/dL Magnesium 2.2 (1.9-2.7) mg/dL Total Bilirubin 0.30 (0.2-1.0) mg/dL AST 20 (13-39) U/L ALT 17 (7-52) U/L Alkaline Phosphatase 69 (34-104) U/L Troponin I 1.53 H* (<0.04) ng/mL C-Reactive Protein 2.05 (< 5.00) mg/L B-Natriuretic Peptide ( - 100) pg/mL Total Protein 6.6 (6.4-8.9) g/dL Albumin 3.8 (3.2-5.2) g/dL Globulin 2.8 (2-4) g/dL Albumin/Globulin Ratio 1.4 (1-3) TSH 1.47 (0.34-5.60) mcIU/mL Urine Color Urine Appearance Urine pH (5-9) Ur Specific [place] (1.010-1.030) Urine Protein (Negative) Urine Ketones (Negative) Urine Blood (Negative) Urine Nitrate (Negative) Urine Bilirubin (Negative) Urine Urobilinogen (Negative) Ur Leukocyte Esterase (Negative) Urine WBC (Auto) (Absent) Urine RBC (Auto) (Absent) Ur Squamous Epith Cells (Absent) Urine Bacteria (Absent) Urine Glucose (Negative) Salicylates < 2.50 (<30) mg/dL Acetaminophen < 15 mcg/mL Serum Alcohol < 10 (<10) mg/dL 08/24/16 08/24/16 Range/Units 12:10 12:27 WBC (3.5-10.8) 10^3/ul RBC (4.0-5.4) 10^6/ul Hgb (12.0-16.0) g/dl Hct (35-47) % MCV (80-97) fL MCH (27-31) pg MCHC (31-36) g/dl RDW (10.5-15) % Plt Count (150-450) 10^3/ul MPV (7.4-10.4) um3 Neut % (Auto) (38-83) % Lymph % (Auto) (25-47) % [place] % (Auto) (1-9) % Eos % (Auto) (0-6) % Baso % (Auto) (0-2) % Absolute Neuts (auto) (1.5-7.7) 10^3/ul Absolute Lymphs (auto) (1.0-4.8) 10^3/ul Absolute Monos (auto) (0-0.8) 10^3/ul Absolute Eos (auto) (0-0.6) 10^3/ul Absolute Basos (auto) (0-0.2) 10^3/ul Absolute Nucleated RBC 10^3/ul Nucleated RBC % Sodium (133-145) mmol/L Potassium (3.5-5.0) mmol/L Chloride (101-111) mmol/L Carbon Dioxide (22-32) mmol/L Anion Gap (2-11) mmol/L BUN (6-24) mg/dL Creatinine (0.51-0.95) mg/dL Est GFR ( Amer) (>60) Est GFR (Non-Af Amer) (>60) BUN/Creatinine Ratio (8-20) Glucose (70-100) mg/dL Lactic Acid (0.5-2.0) mmol/L Calcium (8.6-10.3) mg/dL Magnesium (1.9-2.7) mg/dL Total Bilirubin (0.2-1.0) mg/dL AST (13-39) U/L ALT (7-52) U/L Alkaline Phosphatase (34-104) U/L Troponin I (<0.04) ng/mL C-Reactive Protein (< 5.00) mg/L B-Natriuretic Peptide 30 ( - 100) pg/mL Total Protein (6.4-8.9) g/dL Albumin (3.2-5.2) g/dL Globulin (2-4) g/dL Albumin/Globulin Ratio (1-3) TSH (0.34-5.60) mcIU/mL Urine Color Yellow Urine Appearance Clear Urine pH 6.0 (5-9) Ur Specific [place] 1.016 (1.010-1.030) Urine Protein Negative (Negative) Urine Ketones Negative (Negative) Urine Blood Negative (Negative) Urine Nitrate Negative (Negative) Urine Bilirubin Negative (Negative) Urine Urobilinogen Negative (Negative) Ur Leukocyte Esterase Trace H (Negative) Urine WBC (Auto) Trace(0-5/hpf) (Absent) Urine RBC (Auto) 1+(3-5/hpf) H (Absent) Ur Squamous Epith Cells Present H (Absent) Urine Bacteria Absent (Absent) Urine Glucose Negative (Negative) Salicylates (<30) mg/dL Acetaminophen mcg/mL Serum Alcohol (<10) mg/dL Assess/Plan/Problems-Billing Assessment: Abdominal pain, disorganized thinking and anxiety in a 70 yo F - Patient Problems (1) Abdominal pain Current Visit: Yes Comment: Etiology not clear. CT A/P and transvaginal US both benign. Is eating and having normal stools. ?inflammatory or MSK process. Will add ibuprofen and low dose flexeril to see if this helps. Continue tylenol , bentyl and simethicone (2) Anxiety Current Visit: Yes Comment: Psych eval pending. Patient reports history of this in the past. (3) Elevated troponin Current Visit: Yes Comment: Lab error. Repeat troponins are negative. (4) DVT prophylaxis Current Visit: Yes Comment: HSQ
--- NOTE | 2016-08-25 16:50 | ECHO ---
Patient: CANDY JUDD Rec#: [id number] : 1945 Date: 08/25/2016 Age: 70y Height: 152.4 cm / 60.0 in Weight: 68.04 kg / 150.0 lbs Sex: F BSA: 1.65 Room#: [facility] Admit Date#: 08/24/2016 Type: Inpatient Referring: Jc Lopez NP Reading: Elio Stringer MD Alley Cleaner: Silvia Ferreira RDCS CC: Seth Gama MD Transthoracic Echocardiogram Indication: ACS BP: 111/53 HR: 56 Rhythm: Bradycardia Findings History: Mental health issues,chronic sinus problems,arthritis, former smoker, Rheumatic Fever as a child. Technical Comments: The study quality is good. Completed at 0900. Left Ventricle: The left ventricular chamber size is decreased. The estimated ejection fraction is 55-60%. There is no consistent Doppler evidence of clinically significant diastolic dysfunction. Left Atrium: The left atrium is normal in size. The left atrial chamber size is normal. Right Ventricle: The right ventricular cavity size is normal. The right ventricular global systolic function is normal. Right Atrium: The right atrial cavity size is normal. Aortic Valve: The aortic valve is trileaflet. There is no evidence of aortic regurgitation. There is no evidence of aortic stenosis. Mitral Valve: The mitral valve leaflets are mildly thickened. There is trace to mild mitral regurgitation. There is no evidence of mitral stenosis. Tricuspid Valve: The tricuspid valve leaflets are normal. There is mild tricuspid regurgitation. There is no tricuspid stenosis. Pulmonic Valve: The pulmonic valve appears normal. There is no evidence of pulmonic regurgitation. There is no pulmonic stenosis. Pericardium: A pericardial fat pad is visualized. Aorta: There is mild dilatation of the ascending aorta. There is no dilatation of the aortic arch. There is no dilation of the aortic root. Pulmonary Artery: The main pulmonary artery appears normal. Venous: The inferior vena cava appears normal in size. There is a greater than 50% respiratory change in the inferior vena cava dimension. Summary: There was not any prior study for comparison. Conclusions The left ventricular chamber size is decreased. The estimated ejection fraction is 55-60%. There is trace to mild mitral regurgitation. There is mild tricuspid regurgitation. There is mild dilatation of the ascending aorta. Measurements Name Value Normal Range RVIDd (AP) 2D 3 cm (0.9 - 2.6) RVDdMajor (2D) 2.9 cm (2.2 - 4.4) RAd ISD 4CH 3.5 cm (3.4 - 4.9) RA (A4C)W 3.2 cm (2.9 - 4.6) IVSd (2D) 0.8 cm (0.6 - 1) LVPWd (2D) 1.1 cm (0.6 - 1) LVIDd (2D) 2.8 cm (3.6 - 5.4) LVIDs (2D) 2.2 cm - LV FS (2D) 21 % (25 - 45) Aortic Annulus 2.1 cm (1.4 - 2.6) Ao root diameter (2D) 3.3 cm (2.1 - 3.5) Ascending Ao 3.6 cm (2.1 - 3.4) Aortic arch 2 cm (1.8 - 3.4) Descending Ao 0.8 cm - LA dimension (AP) 2D 2.1 cm (2.3 - 3.8) LAd ISD 4CH 3.5 cm (2.9 - 5.3) LA ISD 4CH W 3 cm (2.5 - 4.5) Name Value Normal Range LA ESV SP 4CH (A/L) 15 ml - LA ESV SP 2CH (A/L) 33 ml - LA ESV BP (A/L) 24 ml - LA ESV BP (A/L) index 14.78 ml/m2 - LA ESV SP 4CH (MOD) 13 ml - LA ESV SP 2CH (MOD) 31 ml - Name Value Normal Range MV E-wave Vmax 0.7 m/sec - MV deceleration time 188 msec - MV A-wave Vmax 0.7 m/sec - MV E:A ratio 0.9 ratio - LV septal e' Vmax 0.07 m/sec - LV lateral e' Vmax 0.11 m/sec - LV E:e' septal ratio 10 ratio - LV E:e' lateral ratio 6.36 ratio - Name Value Normal Range AV Vmax 1.2 m/sec - AV VTI 30.4 cm - AV peak gradient 5.51 mmHg - AV mean gradient 2.62 mmHg - LVOT Vmax 1 m/sec - LVOT VTI 21.2 cm - LVOT peak gradient 4.39 mmHg - LVOT mean gradient 1.8 mmHg - Name Value Normal Range TR Vmax 2.1 m/sec - TR peak gradient 18 mmHg - RAP 3 mmHg - RVSP 21 mmHg - IVC diameter 0.9 cm - Name Value Normal Range PV Vmax 0.7 m/sec - PV peak gradient 1.74 mmHg -
[2016-08-25] MEDS: ALPRAZolam TAB* 0.25 MG PO PRN (17:20)
[2016-08-26] MEDS: ALPRAZolam TAB* 0.25 MG PO PRN ×2 (01:12→09:54)
[2016-08-26] MEDS: Heparin VIAL(*) 5000 UNITS/ML VIAL (FIVE THOUSAND) SUBCUT SCH ×3 (05:35→21:19)
[2016-08-26] MEDS: Dicyclomine CAP* 10 MG PO SCH ×4 (09:53→18:48)
[2016-08-26] MEDS: Aspirin Low Dose CHEW TAB* 81 MG PO SCH (09:53)
[2016-08-26] MEDS: Simethicone CHEW TAB* 80 MG PO SCH ×2 (09:53→21:13)
--- NOTE | 2016-08-26 13:27 | PN ---
Subjective Date of Service: 08/26/16 Interval History: Patient seen this afternoon. Was walking in the hallway this morning with aide present. When I enter the room patient repeatedly saying "please let me " over and over. Not expanding much on that. Says she cannot go home like this and that she cannot care about herself. Most of my questioning answered with "please let me ". Family History: Unchanged from Admission Social History: Unchanged from Admission Past Medical History: Unchanged from Admission Objective Active Medications: Acetaminophen (Tylenol Tab*) 650 mg PO Q4H PRN Alprazolam (Xanax Tab*) 0.25 mg PO Q6H PRN Aspirin (Aspirin Low Dose Tab*) 81 mg PO DAILY TIA Cyclobenzaprine HCl (Flexeril Tab*) 5 mg PO TID PRN Dicyclomine HCl (Bentyl Cap*) 10 mg PO AC TIA Heparin Sodium (Porcine) (Heparin Vial(*)) 5,000 units SUBCUT Q8HR TIA Ibuprofen (Motrin Tab*) 600 mg PO Q6H PRN Melatonin (Melatonin (Nf)) 1 mg PO BEDTIME PRN Simethicone (Mylicon*) 40 mg PO BID TIA Vital Signs 08/25/16 08/25/16 08/26/16 21:36 23:36 01:08 Temperature 97.6 F Pulse Rate 63 Respiratory 18 18 17 Rate Blood Pressure 112/60 (mmHg) O2 Sat by Pulse 96 Oximetry 08/26/16 08/26/16 08/26/16 01:12 03:12 07:28 Temperature 97.8 F Pulse Rate 65 Respiratory 18 18 18 Rate Blood Pressure 124/64 (mmHg) O2 Sat by Pulse 95 Oximetry Oxygen Devices in Use Now: None Appearance: Elderly, caucaian F, laying in bed in NAD Eyes: No Scleral Icterus Ears/Nose/Mouth/Throat: Mucous Membranes Moist Neck: NL Appearance and Movements; NL JVP Respiratory: Symmetrical Chest Expansion and Respiratory Effort, Clear to Auscultation Cardiovascular: NL Sounds; No Murmurs; No JVD, RRR Abdominal: NL Sounds; No Tenderness; No Distention Lymphatic: No Cervical Adenopathy Extremities: No Edema Skin: No Rash or Ulcers Neurological: Alert and Oriented x 3 Result Diagrams: 08/25/16 05:42 08/25/16 05:42 Additional Lab and Data: Lab Results 08/24/16 08/24/16 08/24/16 Range/Units 12:10 12:10 12:10 WBC 11.4 H (3.5-10.8) 10^3/ul RBC 4.77 (4.0-5.4) 10^6/ul Hgb 13.6 (12.0-16.0) g/dl Hct 42 (35-47) % MCV 87 (80-97) fL MCH 29 (27-31) pg MCHC 33 (31-36) g/dl RDW 14 (10.5-15) % Plt Count 285 (150-450) 10^3/ul MPV 7 L (7.4-10.4) um3 Neut % (Auto) 79.0 (38-83) % Lymph % (Auto) 13.3 L (25-47) % [place] % (Auto) 6.9 (1-9) % Eos % (Auto) 0.2 (0-6) % Baso % (Auto) 0.6 (0-2) % Absolute Neuts (auto) 9.0 H (1.5-7.7) 10^3/ul Absolute Lymphs (auto) 1.5 (1.0-4.8) 10^3/ul Absolute Monos (auto) 0.8 (0-0.8) 10^3/ul Absolute Eos (auto) 0 (0-0.6) 10^3/ul Absolute Basos (auto) 0.1 (0-0.2) 10^3/ul Absolute Nucleated RBC 0 10^3/ul Nucleated RBC % 0 Sodium 134 (133-145) mmol/L Potassium 4.2 (3.5-5.0) mmol/L Chloride 100 L (101-111) mmol/L Carbon Dioxide 27 (22-32) mmol/L Anion Gap 7 (2-11) mmol/L BUN 21 (6-24) mg/dL Creatinine 0.71 (0.51-0.95) mg/dL Est GFR ( Amer) 104.4 (>60) Est GFR (Non-Af Amer) 81.2 (>60) BUN/Creatinine Ratio 29.6 H (8-20) Glucose 97 (70-100) mg/dL Lactic Acid 0.9 (0.5-2.0) mmol/L Calcium 9.3 (8.6-10.3) mg/dL Magnesium 2.2 (1.9-2.7) mg/dL Total Bilirubin 0.30 (0.2-1.0) mg/dL AST 20 (13-39) U/L ALT 17 (7-52) U/L Alkaline Phosphatase 69 (34-104) U/L Troponin I 1.53 H* (<0.04) ng/mL C-Reactive Protein 2.05 (< 5.00) mg/L B-Natriuretic Peptide ( - 100) pg/mL Total Protein 6.6 (6.4-8.9) g/dL Albumin 3.8 (3.2-5.2) g/dL Globulin 2.8 (2-4) g/dL Albumin/Globulin Ratio 1.4 (1-3) TSH 1.47 (0.34-5.60) mcIU/mL Urine Color Urine Appearance Urine pH (5-9) Ur Specific [place] (1.010-1.030) Urine Protein (Negative) Urine Ketones (Negative) Urine Blood (Negative) Urine Nitrate (Negative) Urine Bilirubin (Negative) Urine Urobilinogen (Negative) Ur Leukocyte Esterase (Negative) Urine WBC (Auto) (Absent) Urine RBC (Auto) (Absent) Ur Squamous Epith Cells (Absent) Urine Bacteria (Absent) Urine Glucose (Negative) Salicylates < 2.50 (<30) mg/dL Acetaminophen < 15 mcg/mL Serum Alcohol < 10 (<10) mg/dL 08/24/16 08/24/16 Range/Units 12:10 12:27 WBC (3.5-10.8) 10^3/ul RBC (4.0-5.4) 10^6/ul Hgb (12.0-16.0) g/dl Hct (35-47) % MCV (80-97) fL MCH (27-31) pg MCHC (31-36) g/dl RDW (10.5-15) % Plt Count (150-450) 10^3/ul MPV (7.4-10.4) um3 Neut % (Auto) (38-83) % Lymph % (Auto) (25-47) % [place] % (Auto) (1-9) % Eos % (Auto) (0-6) % Baso % (Auto) (0-2) % Absolute Neuts (auto) (1.5-7.7) 10^3/ul Absolute Lymphs (auto) (1.0-4.8) 10^3/ul Absolute Monos (auto) (0-0.8) 10^3/ul Absolute Eos (auto) (0-0.6) 10^3/ul Absolute Basos (auto) (0-0.2) 10^3/ul Absolute Nucleated RBC 10^3/ul Nucleated RBC % Sodium (133-145) mmol/L Potassium (3.5-5.0) mmol/L Chloride (101-111) mmol/L Carbon Dioxide (22-32) mmol/L Anion Gap (2-11) mmol/L BUN (6-24) mg/dL Creatinine (0.51-0.95) mg/dL Est GFR ( Amer) (>60) Est GFR (Non-Af Amer) (>60) BUN/Creatinine Ratio (8-20) Glucose (70-100) mg/dL Lactic Acid (0.5-2.0) mmol/L Calcium (8.6-10.3) mg/dL Magnesium (1.9-2.7) mg/dL Total Bilirubin (0.2-1.0) mg/dL AST (13-39) U/L ALT (7-52) U/L Alkaline Phosphatase (34-104) U/L Troponin I (<0.04) ng/mL C-Reactive Protein (< 5.00) mg/L B-Natriuretic Peptide 30 ( - 100) pg/mL Total Protein (6.4-8.9) g/dL Albumin (3.2-5.2) g/dL Globulin (2-4) g/dL Albumin/Globulin Ratio (1-3) TSH (0.34-5.60) mcIU/mL Urine Color Yellow Urine Appearance Clear Urine pH 6.0 (5-9) Ur Specific [place] 1.016 (1.010-1.030) Urine Protein Negative (Negative) Urine Ketones Negative (Negative) Urine Blood Negative (Negative) Urine Nitrate Negative (Negative) Urine Bilirubin Negative (Negative) Urine Urobilinogen Negative (Negative) Ur Leukocyte Esterase Trace H (Negative) Urine WBC (Auto) Trace(0-5/hpf) (Absent) Urine RBC (Auto) 1+(3-5/hpf) H (Absent) Ur Squamous Epith Cells Present H (Absent) Urine Bacteria Absent (Absent) Urine Glucose Negative (Negative) Salicylates (<30) mg/dL Acetaminophen mcg/mL Serum Alcohol (<10) mg/dL Assess/Plan/Problems-Billing Assessment: Abdominal pain, disorganized thinking and anxiety in a 70 yo F - Patient Problems (1) Abdominal pain Current Visit: Yes Comment: Etiology not clear. CT A/P and transvaginal US both benign. Is eating and having normal stools. ?inflammatory or MSK process. Continue tylenol, ibuprofen, flexeril, bentyl and simethicone (2) Anxiety Current Visit: Yes Comment: Passive suicidal ideations. Psych eval pending. Patient reports history of this in the past. (3) Elevated troponin Current Visit: Yes Comment: Lab error. Repeat troponins are negative. (4) DVT prophylaxis Current Visit: Yes Comment: HSQ
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
[2016-08-26] MEDS: CMCS - Melatonin (NF) 3 MG TAB PO SCH (22:06)
[2016-08-27] MEDS: hydrOXYzine HCL TAB* 10 MG PO PRN ×3 (00:18→22:25)
[2016-08-27] MEDS: Heparin VIAL(*) 5000 UNITS/ML VIAL (FIVE THOUSAND) SUBCUT SCH ×3 (06:11→22:25)
[2016-08-27 06:22] LABS: Hematocrit 41 % (35-47); Hemoglobin 13.4 g/dl (12.0-16.0); Mean Corpuscular HGB Conc 33 g/dl (31-36); Mean Corpuscular Hemoglobin 29 pg (27-31); Mean Corpuscular Volume 87 fL (80-97); Mean Platelet Volume 7 um3 (7.4-10.4); Red Blood Count 4.64 10^6/ul (4.0-5.4); Red Cell Distribution Width 14 % (10.5-15); White Blood Count 9.2 10^3/ul (3.5-10.8)
[2016-08-27] MEDS: Dicyclomine CAP* 10 MG PO SCH ×3 (08:24→16:15)
[2016-08-27] MEDS: Acetaminophen TAB* 325 MG PO PRN ×2 (08:24→22:34)
[2016-08-27] MEDS: Simethicone CHEW TAB* 80 MG PO SCH ×2 (08:25→22:24)
--- NOTE | 2016-08-27 13:37 | PN ---
Subjective Date of Service: 08/27/16 Interval History: Patient seen this afternoon. [id number] at bedside. Continues to feel that she "can't think". Preoccupied with anxieties about being discharged home despite me telling her multiple times that she is not being discharged but that she will transferred to [facility] when bed is available. Says she wants to "end it all" and "leave this space so someone else can have it". Speech is very tangential at times. Family History: Unchanged from Admission Social History: Unchanged from Admission Past Medical History: Unchanged from Admission Objective Active Medications: Acetaminophen (Tylenol Tab*) 650 mg PO Q4H PRN Cyclobenzaprine HCl (Flexeril Tab*) 5 mg PO TID PRN Dicyclomine HCl (Bentyl Cap*) 10 mg PO AC TIA Heparin Sodium (Porcine) (Heparin Vial(*)) 5,000 units SUBCUT Q8HR TIA Hydroxyzine HCl (Atarax Tab*) 10 mg PO Q6H PRN Ibuprofen (Motrin Tab*) 600 mg PO Q6H PRN Melatonin (Melatonin (Nf)) 3 mg PO BEDTIME TIA Simethicone (Mylicon*) 40 mg PO BID [facility] Vital Signs 08/26/16 08/26/16 08/26/16 14:30 15:46 18:48 Temperature 98.0 F Pulse Rate 81 Respiratory 18 18 18 Rate Blood Pressure 117/54 (mmHg) O2 Sat by Pulse 95 Oximetry 08/26/16 08/26/16 08/26/16 20:00 20:48 23:03 Temperature 97.7 F Pulse Rate 61 Respiratory 18 18 16 Rate Blood Pressure 105/50 (mmHg) O2 Sat by Pulse 94 Oximetry 08/27/16 08/27/16 08/27/16 07:35 08:15 08:24 Temperature 98.2 F Pulse Rate 63 Respiratory 18 18 18 Rate Blood Pressure 116/59 (mmHg) O2 Sat by Pulse 99 99 Oximetry Oxygen Devices in Use Now: None Appearance: Elderly, F, laying in bed in NAD Eyes: No Scleral Icterus Ears/Nose/Mouth/Throat: Mucous Membranes Moist Neck: NL Appearance and Movements; NL JVP Respiratory: Symmetrical Chest Expansion and Respiratory Effort, Clear to Auscultation Cardiovascular: NL Sounds; No Murmurs; No JVD, RRR Abdominal: NL Sounds; No Tenderness; No Distention Lymphatic: No Cervical Adenopathy Extremities: No Edema Skin: No Rash or Ulcers Neurological: Alert and Oriented x 3 Result Diagrams: 08/27/16 06:10 08/25/16 05:42 Assess/Plan/Problems-Billing Assessment: Abdominal pain, disorganized thinking and anxiety in a 70 yo F - Patient Problems (1) Abdominal pain Current Visit: Yes Comment: Etiology not clear. CT A/P and transvaginal US both benign. Is eating and having normal stools. ?inflammatory or MSK process. Continue tylenol, ibuprofen, flexeril, bentyl and simethicone (2) Anxiety Current Visit: Yes Comment: Passive suicidal ideations. Appreciate Psych consultation. Will plan to transfer to their unit when bed is available. TSH and B12 WNL. Lyme serologies sent as per Dr. Garza. MRI can be done in AM. (3) Elevated troponin Current Visit: Yes Comment: Lab error. Repeat troponins are negative. (4) DVT prophylaxis Current Visit: Yes Comment: HSQ Status and Disposition: Awaiting transfer to Psych
[2016-08-27] MEDS ORDERED: Diazepam TAB(*) 5 MG PO PRN (13:58)
[2016-08-27] MEDS: CMCS - Melatonin (NF) 3 MG TAB PO SCH (22:25)
[2016-08-28] MEDS: Heparin VIAL(*) 5000 UNITS/ML VIAL (FIVE THOUSAND) SUBCUT SCH ×3 (06:08→21:27)
[2016-08-28] MEDS: Dicyclomine CAP* 10 MG PO SCH ×3 (08:15→21:34)
[2016-08-28] MEDS: Acetaminophen TAB* 325 MG PO PRN ×2 (08:17→21:33)
[2016-08-28] MEDS: Simethicone CHEW TAB* 80 MG PO SCH ×2 (08:17→21:27)
--- NOTE | 2016-08-28 12:28 | RAD ---
HISTORY: Vascular dementia, Lyme disease COMPARISONS: February 09, 2015 TECHNIQUE: The following sequences were obtained of the head: Sagittal T1-weighted images, axial T2-weighted images, axial FLAIR images, axial susceptibility weighted images, axial T1-weighted images. Additionally, axial diffusion-weighted images were obtained with calculated apparent diffusion coefficients. FINDINGS: HEMORRHAGE/INFARCT: There is no hemorrhage or acute infarct. MASSES/SHIFT: There is no mass or shift. EXTRA-AXIAL SPACES/MENINGES: There are no extra-axial fluid collections. SULCI AND VENTRICLES: The sulci and ventricles are normal in size and position for the patient's stated age. CEREBRUM: There are multiple scattered small foci of elevated T2/FLAIR signal within the periventricular and subcortical white matter. These are stable from the February 09, 2015 examination BRAINSTEM: There are no focal parenchymal abnormalities. CEREBELLUM: There are no focal parenchymal abnormalities. The cerebellar tonsils are normal in size and position. SELLA: The sella is normal. PINEAL: The pineal region is clear. CP ANGLE/TEMPORAL BONES: The labyrinthine structures are grossly normal. VESSELS: Normal flow-voids are noted within the visualized vertebral vasculature. DIFFUSION ABNORMALITIES: There are no diffusion abnormalities. PARANASAL SINUSES/MASTOIDS: The paranasal sinuses are clear. ORBITS: The orbits are unremarkable. BONES AND SOFT TISSUE: No bone or soft tissue abnormalities are noted. OTHER: None IMPRESSION: STABLE SCATTERED NONSPECIFIC WHITE MATTER CHANGES.
--- NOTE | 2016-08-28 13:13 | PN ---
Subjective Date of Service: 08/28/16 Interval History: Pt is feeling concerned about her L ear today. She states she feels like it is plugged. She also c/o persistent cough. Overall she is generally worried. Objective Active Medications: Acetaminophen (Tylenol Tab*) 650 mg PO Q4H PRN PRN Reason: FEVER/PAIN Last Admin: 08/28/16 08:17 Dose: 650 mg Cyclobenzaprine HCl (Flexeril Tab*) 5 mg PO TID PRN PRN Reason: Muscle spasms/back pain Last Admin: 08/25/16 21:36 Dose: 5 mg Diazepam (Valium Tab(*)) 5 mg PO ONCE PRN PRN Reason: 30 mins prior to MRI Last Admin: 08/28/16 10:07 Dose: 5 mg Dicyclomine HCl (Bentyl Cap*) 10 mg PO AC [facility] Last Admin: 08/28/16 10:59 Dose: 10 mg Heparin Sodium (Porcine) (Heparin Vial(*)) 5,000 units SUBCUT Q8HR [facility] Last Admin: 08/28/16 06:08 Dose: Not Given Hydroxyzine HCl (Atarax Tab*) 10 mg PO Q6H PRN PRN Reason: ANXIETY Last Admin: 08/27/16 22:25 Dose: 10 mg Ibuprofen (Motrin Tab*) 600 mg PO Q6H PRN PRN Reason: PAIN Last Admin: 08/25/16 12:14 Dose: 600 mg Melatonin (Melatonin (Nf)) 3 mg PO BEDTIME [facility] Last Admin: 08/27/16 22:25 Dose: 3 mg Simethicone (Mylicon*) 40 mg PO BID [facility] Last Admin: 08/28/16 08:17 Dose: 40 mg Vital Signs 08/27/16 08/27/16 08/27/16 13:18 15:37 16:15 Temperature 97.7 F Pulse Rate 64 Respiratory 18 16 16 Rate Blood Pressure 131/64 (mmHg) O2 Sat by Pulse 97 Oximetry 08/27/16 08/27/16 08/27/16 18:15 20:00 22:25 Temperature Pulse Rate Respiratory 20 20 18 Rate Blood Pressure (mmHg) O2 Sat by Pulse Oximetry 08/27/16 08/27/16 08/28/16 22:32 22:53 00:25 Temperature 97.9 F 97.9 F Pulse Rate 57 57 Respiratory 16 16 16 Rate Blood Pressure 131/59 131/59 (mmHg) O2 Sat by Pulse 97 97 Oximetry 08/28/16 08/28/16 08/28/16 06:53 08:15 09:51 Temperature Pulse Rate Respiratory 18 18 Rate Blood Pressure (mmHg) O2 Sat by Pulse 98 Oximetry 08/28/16 08/28/16 08/28/16 10:07 10:08 10:15 Temperature 97.5 F Pulse Rate 69 Respiratory 18 18 16 Rate Blood Pressure 141/57 (mmHg) O2 Sat by Pulse 98 Oximetry 08/28/16 08/28/16 08/28/16 10:59 12:07 12:59 Temperature Pulse Rate Respiratory 18 18 18 Rate Blood Pressure (mmHg) O2 Sat by Pulse Oximetry Oxygen Devices in Use Now: None Appearance: Elderly female sitting in a chair, NAD Eyes: No Scleral Icterus Ears/Nose/Mouth/Throat: Mucous Membranes Moist Respiratory: Symmetrical Chest Expansion and Respiratory Effort, Clear to Auscultation Cardiovascular: NL Sounds; No Murmurs; No JVD, RRR, No Edema Abdominal: NL Sounds; No Tenderness; No Distention Extremities: No Clubbing, Cyanosis Skin: No Rash or Ulcers, No Nodules or Sclerosis Neurological: Alert and Oriented x 3 Result Diagrams: 08/27/16 06:10 08/25/16 05:42 Additional Lab and Data: Lab Results 08/24/16 08/24/16 08/24/16 Range/Units 12:10 12:10 12:10 WBC 11.4 H (3.5-10.8) 10^3/ul RBC 4.77 (4.0-5.4) 10^6/ul Hgb 13.6 (12.0-16.0) g/dl Hct 42 (35-47) % MCV 87 (80-97) fL MCH 29 (27-31) pg MCHC 33 (31-36) g/dl RDW 14 (10.5-15) % Plt Count 285 (150-450) 10^3/ul MPV 7 L (7.4-10.4) um3 Neut % (Auto) 79.0 (38-83) % Lymph % (Auto) 13.3 L (25-47) % [place] % (Auto) 6.9 (1-9) % Eos % (Auto) 0.2 (0-6) % Baso % (Auto) 0.6 (0-2) % Absolute Neuts (auto) 9.0 H (1.5-7.7) 10^3/ul Absolute Lymphs (auto) 1.5 (1.0-4.8) 10^3/ul Absolute Monos (auto) 0.8 (0-0.8) 10^3/ul Absolute Eos (auto) 0 (0-0.6) 10^3/ul Absolute Basos (auto) 0.1 (0-0.2) 10^3/ul Absolute Nucleated RBC 0 10^3/ul Nucleated RBC % 0 Sodium 134 (133-145) mmol/L Potassium 4.2 (3.5-5.0) mmol/L Chloride 100 L (101-111) mmol/L Carbon Dioxide 27 (22-32) mmol/L Anion Gap 7 (2-11) mmol/L BUN 21 (6-24) mg/dL Creatinine 0.71 (0.51-0.95) mg/dL Est GFR ( Amer) 104.4 (>60) Est GFR (Non-Af Amer) 81.2 (>60) BUN/Creatinine Ratio 29.6 H (8-20) Glucose 97 (70-100) mg/dL Lactic Acid 0.9 (0.5-2.0) mmol/L Calcium 9.3 (8.6-10.3) mg/dL Magnesium 2.2 (1.9-2.7) mg/dL Total Bilirubin 0.30 (0.2-1.0) mg/dL AST 20 (13-39) U/L ALT 17 (7-52) U/L Alkaline Phosphatase 69 (34-104) U/L Troponin I 1.53 H* (<0.04) ng/mL C-Reactive Protein 2.05 (< 5.00) mg/L B-Natriuretic Peptide ( - 100) pg/mL Total Protein 6.6 (6.4-8.9) g/dL Albumin 3.8 (3.2-5.2) g/dL Globulin 2.8 (2-4) g/dL Albumin/Globulin Ratio 1.4 (1-3) TSH 1.47 (0.34-5.60) mcIU/mL Urine Color Urine Appearance Urine pH (5-9) Ur Specific [place] (1.010-1.030) Urine Protein (Negative) Urine Ketones (Negative) Urine Blood (Negative) Urine Nitrate (Negative) Urine Bilirubin (Negative) Urine Urobilinogen (Negative) Ur Leukocyte Esterase (Negative) Urine WBC (Auto) (Absent) Urine RBC (Auto) (Absent) Ur Squamous Epith Cells (Absent) Urine Bacteria (Absent) Urine Glucose (Negative) Salicylates < 2.50 (<30) mg/dL Acetaminophen < 15 mcg/mL Serum Alcohol < 10 (<10) mg/dL 08/24/16 08/24/16 Range/Units 12:10 12:27 WBC (3.5-10.8) 10^3/ul RBC (4.0-5.4) 10^6/ul Hgb (12.0-16.0) g/dl Hct (35-47) % MCV (80-97) fL MCH (27-31) pg MCHC (31-36) g/dl RDW (10.5-15) % Plt Count (150-450) 10^3/ul MPV (7.4-10.4) um3 Neut % (Auto) (38-83) % Lymph % (Auto) (25-47) % [place] % (Auto) (1-9) % Eos % (Auto) (0-6) % Baso % (Auto) (0-2) % Absolute Neuts (auto) (1.5-7.7) 10^3/ul Absolute Lymphs (auto) (1.0-4.8) 10^3/ul Absolute Monos (auto) (0-0.8) 10^3/ul Absolute Eos (auto) (0-0.6) 10^3/ul Absolute Basos (auto) (0-0.2) 10^3/ul Absolute Nucleated RBC 10^3/ul Nucleated RBC % Sodium (133-145) mmol/L Potassium (3.5-5.0) mmol/L Chloride (101-111) mmol/L Carbon Dioxide (22-32) mmol/L Anion Gap (2-11) mmol/L BUN (6-24) mg/dL Creatinine (0.51-0.95) mg/dL Est GFR ( Amer) (>60) Est GFR (Non-Af Amer) (>60) BUN/Creatinine Ratio (8-20) Glucose (70-100) mg/dL Lactic Acid (0.5-2.0) mmol/L Calcium (8.6-10.3) mg/dL Magnesium (1.9-2.7) mg/dL Total Bilirubin (0.2-1.0) mg/dL AST (13-39) U/L ALT (7-52) U/L Alkaline Phosphatase (34-104) U/L Troponin I (<0.04) ng/mL C-Reactive Protein (< 5.00) mg/L B-Natriuretic Peptide 30 ( - 100) pg/mL Total Protein (6.4-8.9) g/dL Albumin (3.2-5.2) g/dL Globulin (2-4) g/dL Albumin/Globulin Ratio (1-3) TSH (0.34-5.60) mcIU/mL Urine Color Yellow Urine Appearance Clear Urine pH 6.0 (5-9) Ur Specific [place] 1.016 (1.010-1.030) Urine Protein Negative (Negative) Urine Ketones Negative (Negative) Urine Blood Negative (Negative) Urine Nitrate Negative (Negative) Urine Bilirubin Negative (Negative) Urine Urobilinogen Negative (Negative) Ur Leukocyte Esterase Trace H (Negative) Urine WBC (Auto) Trace(0-5/hpf) (Absent) Urine RBC (Auto) 1+(3-5/hpf) H (Absent) Ur Squamous Epith Cells Present H (Absent) Urine Bacteria Absent (Absent) Urine Glucose Negative (Negative) Salicylates (<30) mg/dL Acetaminophen mcg/mL Serum Alcohol (<10) mg/dL Assess/Plan/Problems-Billing Ms Marley is a 70 yo F who has a h/o anxiety presented to the ER with c/o abdominal pain and was found to have disorganized thinking, passive suicidal ideation and anxiety. - Patient Problems (1) Abdominal pain Current Visit: Yes Status: Acute Code(s): R10.9 - UNSPECIFIED ABDOMINAL PAIN SNOMED Code(s): 20592079 Comment: No clear cause of abdominal pain has been identified. She will continue to monitor. Continue prn tylenol, ibuprofen, flexeril, bentyl and simethicone. She can continue to follow up for this complaint as an outpatient. (2) Anxiety Current Visit: Yes Status: Acute Code(s): F41.9 - ANXIETY DISORDER, UNSPECIFIED SNOMED Code(s): 22690018 Comment: Pt still with significant anxiety regarding her health. She did not speak of any suicidal thoughts when I was interviewing her. No clear medical cause for her anxiety has been identified. ? d/c to MHU today or tomorrow. (3) DVT prophylaxis Current Visit: Yes Status: Acute Code(s): JJY3242 - SNOMED Code(s): 483600106 Comment: SQ heparin (4) Full code status Current Visit: Yes Status: Acute Code(s): Z78.9 - OTHER SPECIFIED HEALTH STATUS SNOMED Code(s): 318940836 Status and Disposition: awaiting bed to open on U
[2016-08-28] MEDS: CMCS - Melatonin (NF) 3 MG TAB PO SCH (23:18)
[2016-08-29] MEDS: Heparin VIAL(*) 5000 UNITS/ML VIAL (FIVE THOUSAND) SUBCUT SCH (06:01)
[2016-08-29] MEDS: Simethicone CHEW TAB* 80 MG PO SCH (08:08)
[2016-08-29] MEDS: Dicyclomine CAP* 10 MG PO SCH (08:08)
[2016-08-29] MEDS: Acetaminophen TAB* 325 MG PO PRN (08:08)
[2016-08-29 08:13] VITALS: BP 112/73
[2016-08-29] MEDS: hydrOXYzine HCL TAB* 10 MG PO PRN (09:08)
--- NOTE | 2016-08-30 05:01 | TRS ---
TRANSFER SUMMARY: DATE OF ADMISSION: 08/25/16 DATE OF DISCHARGE: To mental health unit: 08/29/16 PRIMARY CARE PROVIDER: Seth Gama MD PRINCIPAL DIAGNOSES: 1. Abdominal pain of unclear etiology. 2. Incapacitating anxiety. DISCHARGE MEDICATIONS: 1. Tylenol 650 mg p.o. q.4 hours p.r.n. pain. 2. Maalox plus 30 mL p.o. q.4 hours p.r.n. indigestion. 3. Bentyl 10 mg p.o. q.a.c. 4. Benadryl 25 mg p.o. at bedtime p.r.n. insomnia. 5. Atarax 10 mg p.o. q.4 hours p.r.n. anxiety. 6. Ibuprofen 600 mg q.6 hours p.r.n. pain. 7. Melatonin 3 mg p.o. at bedtime. 8. Multivitamin 1 tab p.o. daily. 9. Simethicone 40 mg p.o. b.i.d. HOSPITAL COURSE: Ms. Marley is a 70-year-old female who presented to the emergency room on 08/24/16 with complaints of abdominal pain. The patient was admitted to be evaluated for her abdominal pain. Additionally on admission, the patient was found to be severely anxious or almost manic. It was felt that a psychiatric consultation was warranted. The patient had previously undergone an abdominal and pelvic CT on 08/21/16 that revealed diverticulosis without any other findings. The patient underwent a transvaginal ultrasound that revealed no adnexal masses. The patient was started on symptomatic treatment for her abdominal pain. She continued to have complaints of pain; however, this subsided by the time I had seen her. The patient was seen in consultation by Dr. Garza on 08/26/16 due to her marked anxiety. The patient was recommended to undergo MRI of the brain, thyroid function studies, B12 level, and Lyme serology for evaluation of her feeling that she cannot think clearly and her anxiety. The patient also had interpersonal neediness along with some cognitive dysfunction and passive wishes and passive suicidal ideations. The decision was made to admit the patient to the mental health unit voluntarily for further evaluation and management of her anxiety. The patient was accepted in the mental health unit on the evening of 08/28/16; however, ultimately was discharged there on the morning of 08/29/16. FOLLOWUP CONCERNS: The patient is being discharged to mental health unit today , 08/29/16. ACTIVITY LEVEL: As tolerated. DIET: Regular. CONDITION ON DISCHARGE: To the mental health unit is stable. TIME SPENT: Twenty-five minutes was spent discharging this patient. CC: Seth Gama MD* [id number]/CPS #: [id number]
== END 2016-08-29 12:15 | DRG 392 ==
LOC: ED 10:27 → MEDTELE 12:58 → OBSVTOIN 08-25 16:24
PROVIDERS: ADMIT Internal Medicine; ATTEND Hospitalist
DX: R10.32 Left lower quadrant pain (principal); R45.851 Suicidal ideations; F41.9 Anxiety disorder, unspecified; K58.9 Irritable bowel syndrome, unspecified; K90.0 Celiac disease; M19.90 Unspecified osteoarthritis, unspecified site; Z87.891 Personal history of nicotine dependence; Z88.0 Allergy status to penicillin; Z79.899 Other long term (current) drug therapy; Z80.41 Family history of malignant neoplasm of ovary; Z88.2 Allergy status to sulfonamides; Z80.1 Family history of malignant neoplasm of trachea, bronchus and lung
CPT/HCPCS: 36415; 70450; 70551; 76830; 80048; 80053; 80061; 80320; 80329; 81003; 81015; 82607; 83036; 83605; 83735; 83880; 84443; 84484; 85025; 85610; 85730; 86140; 86618; 87086; 93005; 94760; A9270-GY; G0378; G0480; J1644

== ENCOUNTER 2016-08-28 15:42 | Inpatient (IN) | payer MEDICARE ==
[2016-08-29] MEDS ORDERED: diPHENhydraMINE PO* 50 MG PO PRN (12:54)
[2016-08-29] MEDS ORDERED: Al Hydrox/Mg Hydrox/Simet LIQ* 30 ML UDC PO PRN (12:54)
[2016-08-29] MEDS ORDERED: hydrOXYzine HCL TAB* 10 MG PO PRN (13:58)
[2016-08-29] MEDS ORDERED: Ibuprofen TAB* 600 MG PO PRN (14:00)
[2016-08-29] MEDS: Dicyclomine CAP* 10 MG PO SCH (16:53)
[2016-08-29] MEDS: Simethicone CHEW TAB* 80 MG PO SCH (21:55)
[2016-08-29] MEDS: CMCS Melatonin (NF) 3 MG TAB PO SCH (21:55)
[2016-08-30] MEDS: Dicyclomine CAP* 10 MG PO SCH ×3 (09:21→16:34)
[2016-08-30] MEDS: Simethicone CHEW TAB* 80 MG PO SCH ×2 (09:22→21:51)
[2016-08-30] MEDS: Vitamin THERAPEUTIC TAB PO SCH (09:22)
--- NOTE | 2016-08-30 11:52 | PN ---
[facility]: Group Therapy Note - Service Type Service Type: 80113 Group Psychotherapy - Cognitive Behavioral Group Therapy ( CBT):Patient was attentive and participatory in CBT programming this morning, and remained in good behavioral control. Patient expressed positive insights regarding relevant treatment interventions and goals.
[2016-08-30] MEDS: Acetaminophen TAB* 325 MG PO PRN (14:44)
--- NOTE | 2016-08-30 16:55 | ADMNOTE ---
Identification - Identify Hx Psychiatric Hospitalization: No History - Objective HPI: 70 y.o. single, white female with a history of anxiety transferred from the medical service, where she received a negative work-up for apparently non- organic abdominal pain, due to anxiety and passive SI. The patient is calm and cooperative on exam and scores a 26/30 on the MMSE, indicating intact cognition. She reports her current anxiety level as 5/10 and states this is largely because she is away from her home. She complains of difficulty sleeping last night because her roommate is on oxygen therapy and this is noisy. She states that the melatonin was not necessarily helpful, but she'll try augmenting it with prn Benadryl, as ordered, tonight if this issue persists. She denies SI. Exam Appearance: Well Developed/Nourished Hygiene: Normal Grooming: Well Kept Psychomotor Activities: Normal Exhibits Abnormal Movement: No Attitude and Relatedness: Cooperative Eye Contact: Good - Speech Quality: Unpressured Latencies: Normal Quantity: Appropriate Patient's Decription of Mood: "Good" Observed Affect: Good Affect Consistent with: Euthymia Patient's Thought Process: Coherent Thought Content: No Passive Wish, No Suicidal Planning, No Homicidal Ideation, No Paranoid Ideation Experiencing Hallucinations: No, Sensorium is Clear Type of Hallucinations: Visual: No, Auditory: No, Command: No Level of Consciousness: Alert Orientation: Yes Intact, Yes Orientated to Time, Yes Orientated to Place, Yes Orientated to Person Impulse Control: Intact Insight and Judgement: Good Impression - Impression Clinical Impression: 70 y.o. single, white female with a history of anxiety transferred from the medical service, where she received a negative work-up for apparently non- organic abdominal pain, due to anxiety and passive SI. Inpatient DSM-IV Dx: Unspecified Anxiety DO Merits Inpatient Hospitalization: Yes Plan - Treatment Plan Treatment Plan: The patient has been taken off benzodiazepines and transferred to the [facility]. Anxiety seems much better than that reported from the 4th floor unit. Will keep her on current med regimen. Consider mirtazapine if she continues to struggle with sleep. May order neuropsych testing to rule out neurocognitive disorder. Continued Medication Management: Consider Medication Medications: Current Medications Acetaminophen (Tylenol Tab*) 650 mg PO Q4H PRN PRN Reason: for pain; or Temp >101 F Last Admin: 08/30/16 14:44 Dose: 650 mg Al Hydrox/Mg Hydrox/Simethicone (Maalox Plus*) 30 ml PO Q4H PRN PRN Reason: INDIGESTION Dicyclomine HCl (Bentyl Cap*) 10 mg PO AC [facility] Last Admin: 08/30/16 16:34 Dose: Not Given Diphenhydramine HCl (Benadryl Po*) 25 mg PO BEDTIME PRN PRN Reason: INSOMNIA Hydroxyzine HCl (Atarax Tab*) 10 mg PO Q4H PRN PRN Reason: ANXIETY OR ITCHING Ibuprofen (Motrin Tab*) 600 mg PO Q6H PRN PRN Reason: PAIN Melatonin (Melatonin (Nf)) 3 mg PO BEDTIME [facility] Last Admin: 08/29/16 21:55 Dose: 3 mg Multivitamins (Theragran Tab*) 1 tab PO DAILY [facility] Last Admin: 08/30/16 09:22 Dose: 1 tab Simethicone (Mylicon*) 40 mg PO BID [facility] Last Admin: 08/30/16 09:22 Dose: 40 mg - Discharge Plan Discharge Plan: Inpatient Hospitalization
[2016-08-30] MEDS ORDERED: diPHENhydraMINE PO* 25 MG PO PRN (21:31)
[2016-08-30] MEDS: CMCS Melatonin (NF) 3 MG TAB PO SCH (21:49)
[2016-08-31] MEDS: Dicyclomine CAP* 10 MG PO SCH ×3 (08:52→16:36)
[2016-08-31] MEDS: Simethicone CHEW TAB* 80 MG PO SCH ×2 (08:54→21:00)
[2016-08-31] MEDS: Vitamin THERAPEUTIC TAB PO SCH (08:55)
--- NOTE | 2016-08-31 10:50 | PN ---
Subjective - Subjective Service Type: 90302 Hosp care 15 min low complexity Subjective: The patient's presentation is different today compared to yesterday. She appears more anxious. "Oh, doctor. I slept terrible last night and I woke just feeling awful. The woman in the ER told me that this might be dementia and I think it's terrible for her to have said that. What is the difference between anxiety and depression? How do I tell between the two. Wait, let me write it down." The patient states that she used Benadryl last night and feels this may be the cause of her distress this morning. "You should call my sister. She's the one that has a good memory of things from day to day." She denies SI. Objective - Appearance Appearance: Well Developed/Nourished Dysmorphic Features: No Hygiene: Normal Grooming: Well Kept - Behavior Psychomotor Activities: Normal Exhibits Abnormal Movement: No - Attitude and Relatedness Attitude and Relatedness: Needy Eye Contact: Good - Speech Quality: Unpressured Latencies: Normal Quantity: Appropriate - Mood Patient's Decription of Mood: "Anxious" - Affect Observed Affect: Constricted Affect Consistent with: Dysphoria - Thought Process Patient's Thought Process: Circumstantial Thought Content: No Passive Wish, No Suicidal Planning, No Homicidal Ideation, No Paranoid Ideation - Sensorium Experiencing Hallucinations: No, Sensorium is Clear Type of Hallucinations: Visual: No, Auditory: No, Command: No - Level of Consciousness Orientation: Yes Intact, Yes Orientated to Time, Yes Orientated to Place, Yes Orientated to Person - Impulse Control Impulse Control: Tenuous - Insight and Judgement Insight and Judgement: Fair - Group Participation Particating in Group Activities: Yes - Medication Management Medication Management Adherence: Yes Assessment - Assessment Merits Inpatient Hospitalization: For Immediate Safety, For Stabilization Inpatient DSM-IV Dx: Unspecified Anxiety DO Clinical Impression: 70 y.o. single, white female with a history of anxiety transferred from the medical service, where she received a negative work-up for apparently non- organic abdominal pain, due to anxiety and passive SI. Plan - Plan Treatment Plan: The patient has been taken off benzodiazepines and transferred to the [facility]. Anxiety seems worse today compared to yesterday. Will d/c Benadryl in favor of a trial of mirtazapine 7.5mg PO qhs. Patient will receive neuropsych testing to rule out neurocognitive disorder as well as an MMPI. Continued Medication Management: Start Medication Medications: Current Medications Acetaminophen (Tylenol Tab*) 650 mg PO Q4H PRN PRN Reason: for pain; or Temp >101 F Last Admin: 08/30/16 14:44 Dose: 650 mg Al Hydrox/Mg Hydrox/Simethicone (Maalox Plus*) 30 ml PO Q4H PRN PRN Reason: INDIGESTION Dicyclomine HCl (Bentyl Cap*) 10 mg PO AC [facility] Last Admin: 08/31/16 08:52 Dose: 10 mg Hydroxyzine HCl (Atarax Tab*) 10 mg PO Q4H PRN PRN Reason: ANXIETY OR ITCHING Ibuprofen (Motrin Tab*) 600 mg PO Q6H PRN PRN Reason: PAIN Last Admin: 08/30/16 21:50 Dose: 600 mg Melatonin (Melatonin (Nf)) 3 mg PO BEDTIME [facility] Last Admin: 08/30/16 21:49 Dose: Not Given Multivitamins (Theragran Tab*) 1 tab PO DAILY [facility] Last Admin: 08/31/16 08:55 Dose: 1 tab Simethicone (Mylicon*) 40 mg PO BID [facility] Last Admin: 08/31/16 08:54 Dose: 40 mg - Discharge Plan Discharge Plan: Inpatient Hospitalization
[2016-08-31] MEDS: CMCS Melatonin (NF) 3 MG TAB PO SCH (21:00)
[2016-08-31] MEDS ORDERED: Mirtazapine TAB* 15 MG PO SCH (21:00)
[2016-09-01] MEDS: CMCS Melatonin (NF) 3 MG TAB PO SCH (00:02)
[2016-09-01] MEDS: Vitamin THERAPEUTIC TAB PO SCH (08:24)
[2016-09-01] MEDS: Simethicone CHEW TAB* 80 MG PO SCH (08:25)
[2016-09-01] MEDS: Dicyclomine CAP* 10 MG PO SCH ×2 (08:26→11:56)
[2016-09-01] MEDS: Acetaminophen TAB* 325 MG PO PRN (08:28)
[2016-09-01 08:43] VITALS: BP 132/69
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
--- NOTE | 2016-09-01 13:22 | CONS ---
PSYCHOLOGICAL REPORT: DATE OF CONSULT: 09/01/16 REASON FOR REFERRAL: Mayi was referred for cognitive and personality testing in order to help address questions regarding possible cognitive impairments, as well as rule out other clinical considerations such as depression and anxiety as contributing factors to her presentation. TESTS ADMINISTERED: Ramonita was administered a portion of the [place] Adult Intelligence Scale (WAIS-IV), as well as the [place] Multiphasic Personality Inventory-2 (MMPI-2). Ramonita was given feedback regarding testing results and individual conversation. RELEVANT HISTORY: Ramonita was initially admitted to the hospital for treatment regarding abdominal pain. Workup did not find any organic etiology to her difficulties and instead attributed her continuing physical symptoms to anxiety characterized by passive suicidal ideation. Ramonita describes decline in function in recent months describing having trouble balancing her check book which she finds uncharacteristic as she is accustomed to a higher level of function. She expresses anxieties regarding possible dementia secondary to a commentary apparently made while she was in the emergency department where someone suggested dementia as a possible rule out. BEHAVIORAL OBSERVATIONS: Ramonita has been an active and interested patient while on the [facility]. She attends programming and is very interested in content and active in conversation. She was compliant with request to complete testing, and presented very apprehensive about testing result, particularly in regards to WAIS-IV. Ramonita needed redirection a fair amount to concentrate on relevant information during testing, often expressing anxieties and describing feeling fatigued by these efforts. She has had difficulty hearing and needs a great deal of repetition at times in conversation and describes feeling as though there is a "bunch of cotton" stuffed in one ear. She hypothesized that this might have lingering effects from apparent head cold she has had in recent weeks. She also attributes a lack of balance into her ear problems and has been walking with the assistance of a walker. TEST RESULTS: Ramonita performed quite well on partial administration of the WAIS- IV, attaining prorated verbal IQ of 120, an effort which falls into 91st percentile of intellectual functioning. She attained a perceptual reasoning index (prorated) of 111, an effort which would fall at the 77th percentile of aptitudes while her working memory was again prorated at 122 which would fall at the 93rd percentile of intellectual functioning. She attained a scaled score of 13 on the block design subtest, and a scaled score of 11 on the matrix reasoning subtest. On verbal indices, she attained a scaled score of 12 on similarity subtest while she attained a scaled score of 16 on a vocabulary subtest. She also did very well on the digit span subtest attaining a scaled score of 14. A score of 10 would be indicative of an average or 50th percentile effort on these very subtests. Mayi attains significant elevations on both somatic scales of this administration of the MMPI-2. Having elevated both the hypochondriasis and conversion hysteria scales to a similar degree(T=80). She has minimal elevations on depression and anxiety (T=66). Persons who elevate the somatic scales tend to be psychologically naive and lack insight into other behaviors at times. Physical symptoms tend to encroach when under emotional duress and they tend to look for simplistic and concrete solutions to problems. Ramonita impresses as being very apprehensive still about physical problems and indeed is having various medical tests conducted to rule out problems relating to possible Lyme disease or other problems. Further descriptors are regarding persons who elevate somatic scales to describe people who generally are somewhat negativistic and pessimistic and demand attention. Complaints are focused largely on bodily symptoms and resist any form of resolution at times. Conservative interventions reassuring clients about physical symptoms are indicated with Ramonita responding positively to reassurances that she in fact does not impress as experiencing cognitive impairment secondary to possible encroaching dementia. [id number]/[facility] #: [id number] JULIA
== END 2016-09-01 13:50 | disposition home or self-care (01) | DRG 880 ==
LOC: BSU 08-29 12:54
PROVIDERS: ADMIT Psychiatry & Neurology Psychiatry; ATTEND Psychiatry & Neurology Psychiatry
DX: F41.9 Anxiety disorder, unspecified (principal); K90.0 Celiac disease; K58.9 Irritable bowel syndrome, unspecified; M19.90 Unspecified osteoarthritis, unspecified site; Z79.1 Long term (current) use of non-steroidal anti-inflammatories (NSAID); Z79.899 Other long term (current) drug therapy; Z88.0 Allergy status to penicillin; Z88.2 Allergy status to sulfonamides; Z87.891 Personal history of nicotine dependence
CPT/HCPCS: 90853; 96102; 99222; 99231; 99238; A9270-GY

== ENCOUNTER 2016-11-01 13:48 | Inpatient (IN) | payer MEDICARE ==
[2016-11-01] MEDS ORDERED: NS 0.9% 1000 ML* 1,000 ML IV SCH (14:30)
--- NOTE | 2016-11-01 14:50 | RAD ---
Indication: Overdose. Single frontal view of the chest performed at 1435 hours was reviewed. Comparison is made with previous exam dated May 25, 2014. No mediastinal shift is noted. Heart is of normal size and configuration. Lung virk appear clear. IMPRESSION: NO ACTIVE CARDIOPULMONARY DISEASE IS NOTED.
--- NOTE | 2016-11-01 15:07 | RAD ---
HISTORY: Altered mental status COMPARISONS: August 24, 2016 TECHNIQUE: Multiple contiguous axial CT scans were obtained of the head without intravenous contrast. FINDINGS: HEMORRHAGE/INFARCT: There is no hemorrhage or acute infarct. MASSES/SHIFT: There is no mass or shift. EXTRA-AXIAL SPACES: There are no extra-axial fluid collections. SULCI AND VENTRICLES: The sulci and ventricles are normal in size and position for the patient's stated age. CEREBRUM: There are no focal parenchymal abnormalities. BRAINSTEM: There are no focal parenchymal abnormalities. CEREBELLUM: There are no focal parenchymal abnormalities. VESSELS: The vessels are grossly normal. PARANASAL SINUSES: The paranasal sinuses are clear. ORBITS: The orbits are unremarkable. BONES AND SOFT TISSUE: No bone or soft tissue abnormalities are noted. OTHER: None IMPRESSION: NO ACUTE INTRACRANIAL PATHOLOGY.
[2016-11-01 16:42] LABS: Urine Bacteria Absent (Absent); Urine Bilirubin Negative (Negative); Urine Glucose Negative (Negative); Urine Nitrite Negative (Negative)
[2016-11-01 16:59] LABS: Benzodiazepine Urine Screen None Detected (None Detect)
[2016-11-01 17:26] LABS: Hematocrit 40 % (35-47); Hemoglobin 13.1 g/dl (12.0-16.0); Mean Corpuscular HGB Conc 33 g/dl (31-36); Mean Corpuscular Hemoglobin 28 pg (27-31); Mean Corpuscular Volume 86 fL (80-97); Mean Platelet Volume 7 um3 (7.4-10.4); Red Blood Count 4.63 10^6/ul (4.0-5.4); Red Cell Distribution Width 14 % (10.5-15); White Blood Count 12.7 10^3/ul (3.5-10.8)
[2016-11-01 17:37] LABS: ALT 15 U/L (7-52); AST 19 U/L (13-39); Albumin 3.7 g/dL (3.2-5.2); Alkaline Phosphatase 74 U/L (34-104); Anion Gap 7 mmol/L (2-11); BUN/Creatinine Ratio 16.9 (8-20); Blood Urea Nitrogen 14 mg/dL (6-24); CO2 Carbon Dioxide 27 mmol/L (22-32); Calcium 8.8 mg/dL (8.6-10.3); Chloride 102 mmol/L (101-111); Creatine Kinase 71 U/L (10-223); EGFR African American 87.2 (>60); EGFR Non-African American 67.8 (>60); Globulin 2.6 g/dL (2-4); Glucose 124 mg/dL (70-100); Magnesium 1.9 mg/dL (1.9-2.7); Potassium 3.5 mmol/L (3.5-5.0); Sodium 136 mmol/L (133-145); Total Protein 6.3 g/dL (6.4-8.9)
[2016-11-01 17:38] LABS: Troponin I 0.03 ng/mL (<0.04)
[2016-11-01 17:39] LABS: Acetaminophen < 15 mcg/mL; Alcohol < 10 mg/dL (<10); Salicylate < 2.50 mg/dL (<30)
[2016-11-01 17:47] LABS: TSH (Thyroid Stimulating Horm) 1.41 mcIU/mL (0.34-5.60)
[2016-11-01] MEDS ORDERED: Ciprofloxacin TAB* 500 MG PO ONE (20:56)
--- NOTE | 2016-11-01 23:01 | ED ---
Moise Hsieh SooYoung, scribed for Chad Owens MD on 11/01/16 at 1421 . Substance Abuse/Use - HPI Summary HPI Summary: A 70 y/o F presents to ED BIBA after overdose of Mirtazapine onset [employer]. Pt initially states she was not intending to kill herself. According to family/ friend, pt called her twice to let her know that she "took all the pills in the box and wanted to go to bed." Per friend: pt was off Mirtazapine for three days and had an episode of ongoing feelings of "dread" five days ago. When asked by ED physician, "Did you want your friend to take care of your animals after you were ?" Pt nodded yes. Pt states she is depressed. Pt has difficulty sleeping. Pt is hard of hearing. - History Of Current Complaint Chief Complaint: EDOverdose Stated Complaint: 941/OVERDOSE Time Seen by Provider: 11/01/16 14:13 Hx Obtained From: Patient Hx From Patient Unobtainable Due To: Altered Mental Status Ingestion History: Type/Name Of Drug - Mirtazapine Overdose Characteristics: Oral Character: Depressed Associated Signs And Symptoms: Sleep Disturbance, Altered Mental Status, Intentional Ingestion - SI with action - Allergies/Home Medications Allergies/Adverse Reactions: Allergies Allergy/AdvReac Type Severity Reaction Status Date / Time Penicillins Allergy Unknown Unknown Verified 11/01/16 14:15 Reaction Details Sulfa Antibiotics Allergy Unknown Unknown Verified 11/01/16 14:15 Reaction Details PMH/Surg Hx/FS Hx/Imm Hx Previously Healthy: No Endocrine/Hematology History: Denies: Hx Diabetes Cardiovascular History: Reports: Hx Valvular Heart Disease - A CHILD, Other Cardiovascular Problems/Disorders - Rheumatic fever as a child. Denies: Hx Hypertension, Hx Pacemaker/ICD Respiratory History: Reports: Other Respiratory Problems/Disorders - CHRONIC SINUS PROBLEMS-POST NASAL DRIP GI History: Reports: Hx Diverticulosis, Hx Hiatal Hernia, Hx Irritable Bowel, Other GI Disorders - Celiac Disease History: Denies: Hx Dialysis, Hx Renal Disease Musculoskeletal History: Reports: Hx Arthritis Denies: Hx Osteoporosis Sensory History: Reports: Hx Contacts or Glasses, Hx Hearing Problem - "Left ear is plugged.", Other Sensory Impairments - Tinnitus Denies: Hx Hearing Aid Opthamlomology History: Reports: Hx Contacts or Glasses, Other Sensory Impairments - Tinnitus Psychiatric History: Reports: Hx Anxiety, Hx Depression, Hx Community Mental Health Tx Denies: Hx Eating Disorder, Hx Panic Disorder, Hx Suicide Attempt, Hx of Violent Episodes Against Others - Cancer History Cancer Type, Location and Year: Dysplasia Hx Chemotherapy: No Hx Radiation Therapy: No - Surgical History Surgery Procedure, Year, and Place: TUBAL LIGATION-1974 WISDOM TEETH REMOVED COLONOSCOPY. Left hand tendon repair post cat bite Hx Anesthesia Reactions: No - Immunization History Date of Tetanus Vaccine: unknown Infectious Disease History: Unable to Obtain/Confirm Infectious Disease History: Denies: Traveled Outside the [place] in Last 30 Days - UNABLE TO DETERMINE; CONFUSED - Family History Known Family History: Positive: Other - breast CA, ovarian CA - Social History Occupation: Retired Lives: Alone Alcohol Use: Rare Alcohol Amount: WINE ON OCCASION Hx Substance Use: No Substance Use Type: Reports: None Hx Tobacco Use: Yes Smoking Status (MU): Former Smoker Type: Cigarettes Amount Used/How Often: 1 PACK EVERY 2 WEEKS X 10 YRS Review of Systems Negative: Fever Psychological: Other - pos: SI with action; difficulty sleeping; feelings of dread Positive: Depressed All Other Systems Reviewed And Are Negative: Yes Physical Exam Triage Information Reviewed: Yes Vital Signs On Initial Exam: Initial Vitals Temp Pulse Resp BP Pulse Ox 98.8 F 75 18 146/84 96 11/01/16 14:12 11/01/16 14:12 11/01/16 14:12 11/01/16 14:12 11/01/16 14:12 Vital Signs Reviewed: Yes Completion Of Physical Exam Limited Due To: Altered Mental Status Appearance: Positive: Well-Appearing, No Pain Distress Skin: Positive: Warm, Skin Color Reflects Adequate Perfusion, Dry Head/Face: Positive: Normal Head/Face Inspection Eyes: Positive: EOMI, DEEP ENT: Positive: Other - POS: PT IS HARD OF HEARING. Neck: Positive: Supple, Nontender Respiratory/Lung Sounds: Positive: Clear to Auscultation, Breath Sounds Present Cardiovascular: Positive: RRR Psychiatric: Positive: Depressed, Other - POS: FLAT AFFECT Diagnostics - Vital Signs Vital Signs Temp Pulse Resp BP Pulse Ox 11/01/16 14:12 98.8 F 75 18 146/84 96 - Laboratory Lab Results: Lab Results 11/01/16 11/01/16 11/01/16 Range/Units 16:25 16:25 17:05 WBC 12.7 H (3.5-10.8) 10^3/ul RBC 4.63 (4.0-5.4) 10^6/ul Hgb 13.1 (12.0-16.0) g/dl Hct 40 (35-47) % MCV 86 (80-97) fL MCH 28 (27-31) pg MCHC 33 (31-36) g/dl RDW 14 (10.5-15) % Plt Count 252 (150-450) 10^3/ul MPV 7 L (7.4-10.4) um3 Neut % (Auto) 85.9 H (38-83) % Lymph % (Auto) 10.1 L (25-47) % [place] % (Auto) 3.7 (1-9) % Eos % (Auto) 0.1 (0-6) % Baso % (Auto) 0.2 (0-2) % Absolute Neuts (auto) 10.9 H (1.5-7.7) 10^3/ul Absolute Lymphs (auto) 1.3 (1.0-4.8) 10^3/ul Absolute Monos (auto) 0.5 (0-0.8) 10^3/ul Absolute Eos (auto) 0 (0-0.6) 10^3/ul Absolute Basos (auto) 0 (0-0.2) 10^3/ul Absolute Nucleated RBC 0.01 10^3/ul Nucleated RBC % 0.1 INR (Anticoag Therapy) (0.89-1.11) APTT (26.0-36.3) seconds Sodium (133-145) mmol/L Potassium (3.5-5.0) mmol/L Chloride (101-111) mmol/L Carbon Dioxide (22-32) mmol/L Anion Gap (2-11) mmol/L BUN (6-24) mg/dL Creatinine (0.51-0.95) mg/dL Est GFR ( Amer) (>60) Est GFR (Non-Af Amer) (>60) BUN/Creatinine Ratio (8-20) Glucose (70-100) mg/dL Lactic Acid (0.5-2.0) mmol/L Calcium (8.6-10.3) mg/dL Magnesium (1.9-2.7) mg/dL Total Bilirubin (0.2-1.0) mg/dL AST (13-39) U/L ALT (7-52) U/L Alkaline Phosphatase (34-104) U/L Total Creatine Kinase (10-223) U/L CK-MB (CK-2) (0.6-6.3) ng/mL Troponin I (<0.04) ng/mL Total Protein (6.4-8.9) g/dL Albumin (3.2-5.2) g/dL Globulin (2-4) g/dL Albumin/Globulin Ratio (1-3) TSH (0.34-5.60) mcIU/mL Urine Color Straw Urine Appearance Clear Urine pH 7.0 (5-9) Ur Specific Edgar 1.004 L (1.010-1.030) Urine Protein Negative (Negative) Urine Ketones Negative (Negative) Urine Blood 2+ H (Negative) Urine Nitrate Negative (Negative) Urine Bilirubin Negative (Negative) Urine Urobilinogen Negative (Negative) Ur Leukocyte Esterase Trace H (Negative) Urine WBC (Auto) 1+(6-10/hpf) H (Absent) Urine RBC (Auto) Trace(0-2/hpf) (Absent) Ur Squamous Epith Cells Present H (Absent) Urine Bacteria Absent (Absent) Urine Glucose Negative (Negative) Salicylates (<30) mg/dL Urine Opiates Screen None detected (None Detect) Acetaminophen mcg/mL Ur Barbiturates Screen None detected (None Detect) Ur Phencyclidine Scrn None detected (None Detect) Ur Amphetamines Screen None detected (None Detect) U Benzodiazepines Scrn None detected (None Detect) Urine Cocaine Screen None detected (None Detect) U Cannabinoids Screen None detected (None Detect) Serum Alcohol (<10) mg/dL 11/01/16 11/01/16 11/01/16 Range/Units 17:05 17:05 17:05 WBC (3.5-10.8) 10^3/ul RBC (4.0-5.4) 10^6/ul Hgb (12.0-16.0) g/dl Hct (35-47) % MCV (80-97) fL MCH (27-31) pg MCHC (31-36) g/dl RDW (10.5-15) % Plt Count (150-450) 10^3/ul MPV (7.4-10.4) um3 Neut % (Auto) (38-83) % Lymph % (Auto) (25-47) % [place] % (Auto) (1-9) % Eos % (Auto) (0-6) % Baso % (Auto) (0-2) % Absolute Neuts (auto) (1.5-7.7) 10^3/ul Absolute Lymphs (auto) (1.0-4.8) 10^3/ul Absolute Monos (auto) (0-0.8) 10^3/ul Absolute Eos (auto) (0-0.6) 10^3/ul Absolute Basos (auto) (0-0.2) 10^3/ul Absolute Nucleated RBC 10^3/ul Nucleated RBC % INR (Anticoag Therapy) 0.90 (0.89-1.11) APTT 28.6 (26.0-36.3) seconds Sodium 136 (133-145) mmol/L Potassium 3.5 (3.5-5.0) mmol/L Chloride 102 (101-111) mmol/L Carbon Dioxide 27 (22-32) mmol/L Anion Gap 7 (2-11) mmol/L BUN 14 (6-24) mg/dL Creatinine 0.83 (0.51-0.95) mg/dL Est GFR ( Amer) 87.2 (>60) Est GFR (Non-Af Amer) 67.8 (>60) BUN/Creatinine Ratio 16.9 (8-20) Glucose 124 H (70-100) mg/dL Lactic Acid 2.3 H* (0.5-2.0) mmol/L Calcium 8.8 (8.6-10.3) mg/dL Magnesium 1.9 (1.9-2.7) mg/dL Total Bilirubin 0.30 (0.2-1.0) mg/dL AST 19 (13-39) U/L ALT 15 (7-52) U/L Alkaline Phosphatase 74 (34-104) U/L Total Creatine Kinase 71 (10-223) U/L CK-MB (CK-2) 3.3 (0.6-6.3) ng/mL Troponin I 0.03 (<0.04) ng/mL Total Protein 6.3 L (6.4-8.9) g/dL Albumin 3.7 (3.2-5.2) g/dL Globulin 2.6 (2-4) g/dL Albumin/Globulin Ratio 1.4 (1-3) TSH 1.41 (0.34-5.60) mcIU/mL Urine Color Urine Appearance Urine pH (5-9) Ur Specific Edgar (1.010-1.030) Urine Protein (Negative) Urine Ketones (Negative) Urine Blood (Negative) Urine Nitrate (Negative) Urine Bilirubin (Negative) Urine Urobilinogen (Negative) Ur Leukocyte Esterase (Negative) Urine WBC (Auto) (Absent) Urine RBC (Auto) (Absent) Ur Squamous Epith Cells (Absent) Urine Bacteria (Absent) Urine Glucose (Negative) Salicylates < 2.50 (<30) mg/dL Urine Opiates Screen (None Detect) Acetaminophen < 15 mcg/mL Ur Barbiturates Screen (None Detect) Ur Phencyclidine Scrn (None Detect) Ur Amphetamines Screen (None Detect) U Benzodiazepines Scrn (None Detect) Urine Cocaine Screen (None Detect) U Cannabinoids Screen (None Detect) Serum Alcohol < 10 (<10) mg/dL Result Diagrams: 11/01/16 17:05 11/01/16 17:05 Lab Statement: Any lab studies that have been ordered have been reviewed, and results considered in the medical decision making process. - Radiology CXR Xray Interpretation: No Acute Changes - IMPRESSION: No active cardiopulmonary dz. Radiology Interpretation Completed By: Radiologist - CT Brain CT CT Interpretation: No Acute Changes - IMPRESSION: No acute intracranial pathology. CT Interpretation Completed By: Radiologist - EKG 1 Cardiac Rate: NL - 70bpm EKG Rhythm: Sinus Rhythm ST Segment: Normal Ectopy: None EKG Interpretation: Baseline wandering in V3, V4, V5 Re-Evaluation - Re-Evaluation 1 Re-Evaluation Time: 20:44 Change: Unchanged Comment: Discussing results with pt, plan for MHE. Course/Dx - Course Course Of Treatment: Pt is a 70 y/o F BIBA after overdose of Mirtazapine [employer]. Per EMS: pt ingested 27-30 pills. Pt states she is depressed. Pt has difficulty sleeping. Pt is hard of hearing. EKG is nml, shows baseline wandering in V3,4, 5. CXR is nml. Brain CT is nml. Toxicology is negative. UA results show blood 2+ , luekocytes present, WBCs 1+, and specific gravity of 1.004. First trop is 0.03. Lactic acid and glucose are elevated. Pt given Cipro and fluids in ED. Pt is medically cleared fr MHE at 2000. SO pending MHE. MHE/DISPOSITION PENDING AT SHIFT CHANGE, STABLE. Assessment/Plan: NO CRITICAL CARE TIME - Diagnoses Provider Diagnoses: Overdose, Mental health problem, UTI (urinary tract infection) Discharge - Discharge Plan Condition: Stable Disposition: [facility]IATRIC FAC[facility] [place] Referrals: Seth Gama MD [Primary Care Provider] - The documentation as recorded by the Moise muhammad SooYoung accurately reflects the service I personally performed and the decisions made by me, Chad Owens MD.
[2016-11-01] MEDS ORDERED: Nicotine Inhaler* 10 MG AMP INH PRN (23:49)
[2016-11-02] MEDS ORDERED: Mouth Piece, Nicotine* 1 EACH CARTRIDGE INH ONE (01:00)
[2016-11-02] MEDS ORDERED: Calcium Carbonate CHEW TAB* 500 MG (TUMS) PO PRN (01:45)
[2016-11-02] MEDS ORDERED: Al Hydrox/Mg Hydrox/Simet LIQ* 30 ML UDC PO PRN (02:20)
[2016-11-02] MEDS: Vitamin THERAPEUTIC TAB PO SCH (08:13)
[2016-11-02] MEDS: Dicyclomine CAP* 10 MG PO SCH ×2 (08:14→11:27)
--- NOTE | 2016-11-02 11:11 | PN ---
MHU: Group Therapy Note - Service Type Service Type: [id number] Group Psychotherapy - Cognitive Behavioral Group Therapy ( CBT):Patient was attentive and participatory in CBT programming this morning, and remained in good behavioral control. Patient expressed positive insights regarding relevant treatment interventions and goals.
[2016-11-02] MEDS: Ciprofloxacin TAB* 500 MG PO SCH ×2 (14:34→21:42)
[2016-11-02] MEDS ORDERED: QUEtiapine TAB* 25 MG PO SCH (21:00)
[2016-11-02] MEDS ORDERED: MELATONIN 10MG TABLET PO SCH (21:00)
[2016-11-02] MEDS ORDERED: Mirtazapine TAB* 15 MG PO SCH (21:00)
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
[2016-11-03] MEDS: Ciprofloxacin TAB* 500 MG PO SCH ×2 (08:48→20:08)
[2016-11-03] MEDS: Vitamin THERAPEUTIC TAB PO SCH (08:49)
[2016-11-03] MEDS: Acetaminophen TAB* 325 MG PO PRN (09:52)
--- NOTE | 2016-11-03 11:05 | PN ---
MHU: Group Therapy Note - Service Type Service Type: [id number] Group Psychotherapy - Group Psychotherapy Note: Ghazala expressed neurotic anxieties about her pets and her well being, repeatedly asking "what's going to happen to me". She remained very difficult to reassure , even with repeated discussion regarding staff helping her problem solve regarding issues like how she will return home. Her anxieties impress as impairing her insight and judgement presently, as she catastrophizes even mundane issues, becoming tearful and despondent.
--- NOTE | 2016-11-03 15:13 | PN ---
Subjective - Subjective Service Type: 45083 Hosp care 15 min low complexity Subjective: Ramonita remains anxious and jittery, stating "I'm going out of my mind." She did not like the experience of taking quetiapine and attributes multiple untoward effects towards this medication, such as blurred vision, constipation and increased appetite. She is difficult to interact with, staring at me blankly after some questions, as if angry, and making it clear how unappealing our unit is to her. I ask about psychosocial stressors that might be driving the symptoms, but she declines these, although she does insist that unless she's discharged before her sister leaves on vacation this weekend "I'll lose my pets and my house...I'll be ruined." Her thought style is highly catastrophizing and she repeats herself numerous times that she doesn't believe she will improve here on the unit. Staff reports that she slept well last night but the patient denies this. She denies active SI but makes extremely pessimistic statements to the effect that she cannot continue to live with the symptoms she has. Objective - Appearance Appearance: Well Developed/Nourished Dysmorphic Features: No Hygiene: Normal Grooming: Well Kept - Behavior Psychomotor Activities: Normal Exhibits Abnormal Movement: No - Attitude and Relatedness Attitude and Relatedness: Needy Eye Contact: Fair - Speech Quality: Unpressured Latencies: Normal Quantity: Appropriate - Mood Patient's Decription of Mood: "Anxious" - Affect Observed Affect: Tense Affect Consistent with: Dysphoria - Thought Process Patient's Thought Process: Circumstantial Thought Content: Yes Passive Wish, No Suicidal Planning, No Homicidal Ideation, No Paranoid Ideation - Sensorium Experiencing Hallucinations: No, Sensorium is Clear Type of Hallucinations: Visual: No, Auditory: No, Command: No - Level of Consciousness Level of Consciousness: Alert Orientation: Yes Intact, Yes Orientated to Time, Yes Orientated to Place, Yes Orientated to Person - Impulse Control Impulse Control: Poor - Insight and Judgement Insight and Judgement: Impaired - Group Participation Particating in Group Activities: Yes - Medication Management Medication Management Adherence: Yes Assessment - Assessment Merits Inpatient Hospitalization: For Immediate Safety, For Stabilization Inpatient DSM-IV Dx: Unspecified Anxiety DO Clinical Impression: 70 y.o. white female with a history of unusual and poorly understood somatic and anxiety symptoms admitted on involuntary status after an intentional overdose on approximately 27 tablets of 15mg strength mirtazapine. The patient denies that this was a formal suicide attempt but insists that she has gotten no relief from prescribed treatment for her problems and feels hopeless about her future. Plan - Plan Treatment Plan: Name: CANDY JUDD Birthdate: 1945 [id number] The patient seems bitterly opposed to quetiapine and seems to be getting the so- called "nocebo" effect, which are anticipatory side effects related to her expectation of harm from medications and therapeutic interactions in general. There does seem to be an element of akathisia (restlessness, twitching, dread) to her presentation and I note that her systolic BP readings have been in the 140s. She agrees to a trial of propranolol 10mg PO BID and we will d/c quetiapine as per her preference. Will make zolpidem 5mg available prn qhs for insomnia. Continued Medication Management: Different Medication Medications: Current Medications Acetaminophen (Tylenol Tab*) 650 mg PO Q4H PRN PRN Reason: PAIN or TEMP > 101 F Last Admin: 11/03/16 09:52 Dose: 650 mg Al Hydrox/Mg Hydrox/Simethicone (Maalox Plus*) 30 ml PO Q4H PRN PRN Reason: INDIGESTION Calcium Carbonate (Tums*) 1,000 mg PO Q4H PRN PRN Reason: INDIGESTION Ciprofloxacin (Cipro Tab*) 500 mg PO Q12HR [facility] Last Admin: 11/03/16 08:48 Dose: 500 mg Sodium Chloride (Ns 0.9% 1000 Ml*) 1,000 mls @ 150 mls/hr IV PER RATE [facility] Last Admin: 11/01/16 15:16 Dose: 150 mls/hr Multivitamins (Theragran Tab*) 1 tab PO DAILY [facility] Last Admin: 11/03/16 08:49 Dose: 1 tab Propranolol HCl (Inderal Tab*) 10 mg PO BID [facility] Zolpidem Tartrate (Ambien Tab*) 5 mg PO BEDTIME PRN PRN Reason: INSOMNIA - Discharge Plan Discharge Plan: Inpatient Hospitalization
[2016-11-03] MEDS: Propranolol TAB* 10 MG PO SCH (20:08)
[2016-11-03] MEDS: Zolpidem TAB* 5 MG PO PRN (21:45)
[2016-11-04] MEDS: Propranolol TAB* 10 MG PO SCH ×2 (08:58→20:34)
[2016-11-04] MEDS: Ciprofloxacin TAB* 500 MG PO SCH ×2 (08:59→20:34)
[2016-11-04] MEDS: Vitamin THERAPEUTIC TAB PO SCH (08:59)
[2016-11-04] MEDS: Zolpidem TAB* 5 MG PO PRN (22:14)
[2016-11-05] MEDS: Propranolol TAB* 10 MG PO SCH ×2 (09:16→21:33)
[2016-11-05] MEDS: Vitamin THERAPEUTIC TAB PO SCH (09:17)
[2016-11-05] MEDS: Ciprofloxacin TAB* 500 MG PO SCH ×2 (09:17→21:33)
--- NOTE | 2016-11-05 13:20 | PN ---
Subjective - Subjective Subjective: Today I had the opportunity to visit with Ms. Judd for follow-up. She is reporting good appetite and reports that she had good sleep after taking Ambien , but reports that she has been plagued with a headache since taking the ambien. She was also upset that we did not have dental floss for her use. She is reporting that she is attempting to ambulate around unit with her walker in an attempt to overcome anxiety, but that her right knee is sore. She reports that she usually uses a knee brace for support. Reviewed case with Dr. Garza, will d/c ambien and begin Trazodone 50 mg po at HS. Objective - Appearance Dysmorphic Features: No Hygiene: Normal Grooming: Well Kept - Behavior Psychomotor Activities: Normal Exhibits Abnormal Movement: No - Attitude and Relatedness Attitude and Relatedness: Cooperative - Speech Quality: Unpressured Latencies: Normal Quantity: Appropriate - Mood Patient's Decription of Mood: "Okay" - Affect Observed Affect: Non-labile - Thought Process Patient's Thought Process: Coherent Thought Content: No Passive Wish, No Suicidal Planning - Sensorium Experiencing Hallucinations: No, Sensorium is Clear - Level of Consciousness Level of Consciousness: Alert Orientation: Yes Intact - Impulse Control Impulse Control: Intact - Insight and Judgement Insight and Judgement: Fair Assessment - Assessment Inpatient DSM-IV Dx: Unspecified Anxiety DO Plan - Plan Treatment Plan: Name: CANDY JUDD Birthdate: 1945 [id number] Medications: Current Medications Acetaminophen (Tylenol Tab*) 650 mg PO Q4H PRN PRN Reason: PAIN or TEMP > 101 F Last Admin: 11/03/16 09:52 Dose: 650 mg Al Hydrox/Mg Hydrox/Simethicone (Maalox Plus*) 30 ml PO Q4H PRN PRN Reason: INDIGESTION Calcium Carbonate (Tums*) 1,000 mg PO Q4H PRN PRN Reason: INDIGESTION Ciprofloxacin (Cipro Tab*) 500 mg PO Q12HR [facility] Last Admin: 11/05/16 09:17 Dose: 500 mg Sodium Chloride (Ns 0.9% 1000 Ml*) 1,000 mls @ 150 mls/hr IV PER RATE [facility] Last Admin: 11/01/16 15:16 Dose: 150 mls/hr Multivitamins (Theragran Tab*) 1 tab PO DAILY [facility] Last Admin: 11/05/16 09:17 Dose: 1 tab Propranolol HCl (Inderal Tab*) 10 mg PO BID [facility] Last Admin: 11/05/16 09:16 Dose: 10 mg Zolpidem Tartrate (Ambien Tab*) 5 mg PO BEDTIME PRN PRN Reason: INSOMNIA Last Admin: 11/04/16 22:14 Dose: 5 mg
[2016-11-05] MEDS: Acetaminophen TAB* 325 MG PO PRN (16:16)
[2016-11-05] MEDS ORDERED: traZODone TAB* 50 MG TAB PO PRN (21:00)
[2016-11-06] MEDS: Vitamin THERAPEUTIC TAB PO SCH (09:09)
[2016-11-06] MEDS: Ciprofloxacin TAB* 500 MG PO SCH ×2 (09:09→20:56)
[2016-11-06] MEDS: Propranolol TAB* 10 MG PO SCH ×2 (09:09→20:57)
[2016-11-06] MEDS: Acetaminophen TAB* 325 MG PO PRN (13:35)
[2016-11-06] MEDS ORDERED: traZODone TAB* 50 MG TAB PO PRN (13:51)
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
--- NOTE | 2016-11-06 17:23 | CONS ---
CC: Seth Gama MD NEUROLOGY CONSULT REPORT: DATE OF CONSULT: 11/06/16 PRIMARY CARE PHYSICIAN: Seth Gama MD. REQUESTING PHYSICIAN: Dr. Daniel. REASON FOR CONSULT: Involuntary movements. HISTORY OF PRESENT ILLNESS: The patient is a 70-year-old left-handed female who is in the mental health unit after overdosing on mirtazapine and is currently under 24-hour supervision and treatment secondary to suicidal ideations. The patient has been stating, per the records, of a clenching feeling and muscle spasms throughout her body. She previously, seems like, has seen Dr. Fairbanks as an outpatient and the workup has been negative. Today, Neurology was called for evaluation of the above symptoms. Today, when I saw the patient and asked her specifically about her symptoms and complaints, she states that she has a "shaking" feeling inside that is not visible. She said "it is going all through my body and is driving me crazy." I asked her to explain more details and clarify what she means. She repeated "the shaking is going all through my head all through my body, but is not visible". I asked whether she has any tremors, any specific muscle cramps or twitching, or any jumpy or jerky movements in the arms and leg, she denied. Although she mentioned that "all my body feels tense". She also says that the left side of her abdomen hurts. The patient has been evaluated in the hospital in August 2016 due to her abdominal pain. Seems the complete workup did not reveal any identifiable cause or source of her complaints. PAST MEDICAL HISTORY: 1. Other than anxiety is significant for probably irritable bowel syndrome/ celiac disease. 2. Osteoarthritis. PAST SURGICAL HISTORY: 1. She has a history of cat bite on her left wrist, s/p I & D and has left her a small scar in the left wrist . 2. She had tubal ligation. MEDICATIONS: 1. Acetaminophen 650 mg p.o. q.4 hours p.r.n. 2. Maalox. 3. Tums. 4. Ciprofloxacin. 5. Propranolol 10 mg p.o. b.i.d. 6. Trazodone 100 mg p.o. at bedtime. ALLERGIES: PENICILLIN and SULFA ANTIBIOTICS. FAMILY HISTORY: Mother had ovarian cancer. Father had a history of lung cancer. No neurological disease in the family. SOCIAL HISTORY: She used to smoke, but quit a few years ago. She lives alone. Denies use of alcohol or drug use. REVIEW OF SYSTEMS: Complete review of systems were performed and other than what mentioned above is negative. PHYSICAL EXAM: Blood pressure 122/68, temperature 98.8, respiratory rate 16, pulse rate 64, O2 sat 98% on room air. When I entered the room, the patient was lying on a prone position on her bed and was reading a magazine. The patient is awake, alert and oriented to time, place and person. She seems in no acute distress or pain. Pupils are symmetric and reactive to light. Extraocular movements are intact. Face is symmetric. V1 to V3 is intact to light touch and pinprick. She has limitation in opening her mouth due to tenderness in temporo-mandibular area on the right side, but is not tender to touch. She describes that as being chronic. Muscles' bulk and tone are normal. No fasciculations or myokymia were seen. Strength is 5/5 throughout, including right arm abduction, despite expression of pain in the right shoulder upon active resistance to pushing down the arm. There is no visible erythema or swelling in the right shoulder. Sensation is intact to light touch and pinprick in the upper and lower extremities. Vibration is slightly reduced in the distal lower extremities bilaterally. Deep tendon reflexes are 2+ in the upper and lower extremities and are symmetric. [id number] is intact bilaterally. Rapid alternating movements are intact bilaterally. Gait is narrow-based and steady. She has a walker close to her bed. I asked her whether she is using the walker, she said "it helps me keep my balance". Romberg is negative. DIAGNOSTIC STUDIES/LAB DATA: WBC 12.7, hemoglobin 13.1, hematocrit 40, platelets 252. Sodium 136, potassium 3.5, BUN 14, creatinine 0.83, glucose 124. Lyme antibody negative. Hepatitis C antibody negative. An MRI of the brain on 08/28/16 showed stable scattered nonspecific white matter changes. ASSESSMENT AND PLAN: The patient is a 70-year-old female with a history of severe anxiety and now admitted to the mental health unit for suicidal ideation and a suicidal attempt with overdosing of mirtazapine. She has been complaining of feeling "shaking inside that is not visible". Neurological examination is nonfocal and unremarkable. There are no signs of tremor or abnormal involuntary movements or akathisia. There are no signs of other neurological problems. The chronic pain in the temporo-mandibular joint probably needs to be evaluated for a TMJ syndrome, and the chronic pain in the right shoulder seems like musculoskeletal and may need further evaluation and imaging. I am not able to fit the patient's subjective symptoms of "shaking inside" to any neurological entity with a completely normal exam and MRI of the brain. Her TSH has also been checked and is within the normal range. Otherwise , no further neurological workup at this point seems necessary. [id number] #: [id number] MTDD
[2016-11-07] MEDS: Propranolol TAB* 10 MG PO SCH ×2 (08:58→21:17)
[2016-11-07] MEDS: Vitamin THERAPEUTIC TAB PO SCH (08:58)
[2016-11-07] MEDS: Ciprofloxacin TAB* 500 MG PO SCH ×2 (10:40→21:18)
--- NOTE | 2016-11-07 11:39 | PN ---
[facility]: Group Therapy Note - Service Type Service Type: [id number] Group Psychotherapy - Cognitive Behavioral Group Therapy ( CBT):Patient was attentive and participatory in CBT programming this morning, and remained in good behavioral control. Patient expressed positive insights regarding relevant treatment interventions and goals. Ghazala continues to express anxiety, but accepts redirection reasonably well today.
--- NOTE | 2016-11-07 12:17 | PN ---
Subjective - Subjective Service Type: [id number] Hosp care 15 min low complexity Subjective: The patient denies SI but is frustrated that she continues to experience poor sleep and anxiety. She was seen by the Neurology consult service yesterday who felt that her symptoms of shakiness and restlessness were psychosomatic in nature. The patient continues to somatize, today complaining of abdominal pain. The patient feels that the lights and noise of the unit are preventing her from sleeping well and she prefers discharge to her sister Aldo. This sister visits her on the unit and this clinician takes the opportunity to speak with her. "She wants a magic bullet and she gets frustrated if she doesn' t get it immediately. She's stubborn, she's always been that way." Isaura indicates that the patient is welcome to stay with her following discharge and agrees to take control of her medications to prevent further OD scenarios. The patient feels she slept better with zolpidem and would like another trial of that medication. Objective - Appearance Appearance: Well Developed/Nourished Dysmorphic Features: No Hygiene: Normal Grooming: Well Kept - Behavior Psychomotor Activities: Normal Exhibits Abnormal Movement: No - Attitude and Relatedness Attitude and Relatedness: Cooperative Eye Contact: Good - Speech Quality: Unpressured Latencies: Normal Quantity: Appropriate - Mood Patient's Decription of Mood: "Anxious" - Affect Observed Affect: Fair Affect Consistent with: Euthymia - Thought Process Patient's Thought Process: Coherent Thought Content: No Passive Wish, No Suicidal Planning, No Homicidal Ideation, No Paranoid Ideation - Sensorium Experiencing Hallucinations: No, Sensorium is Clear Type of Hallucinations: Visual: No, Auditory: No, Command: No - Level of Consciousness Level of Consciousness: Alert Orientation: Yes Intact, Yes Orientated to Time, Yes Orientated to Place, Yes Orientated to Person - Impulse Control Impulse Control: Tenuous - Insight and Judgement Insight and Judgement: Fair - Group Participation Particating in Group Activities: Yes - Medication Management Medication Management Adherence: Yes Assessment - Assessment Merits Inpatient Hospitalization: Consolidate Improvements, Pending Safe DC Plan Inpatient DSM-IV Dx: Unspecified Anxiety DO Clinical Impression: 70 y.o. white female with a history of unusual and poorly understood somatic and anxiety symptoms admitted on involuntary status after an intentional overdose on approximately 27 tablets of 15mg strength mirtazapine. The patient denies that this was a formal suicide attempt but insists that she has gotten no relief from prescribed treatment for her problems and feels hopeless about her future. Plan - Plan Treatment Plan: Name: CANDY JUDD Birthdate: 1945 [id number] The patient is tolerating propranolol 10mg PO BID but has had negative reactions to multiple other medications used to reduce her anxiety (mirtazapine , escitalopram, diazepam, alprazolam, quetiapine, zolpidem), both in the inpatient and outpatient settings. Will d/c trazodone in favor of zolpidem 5mg PO qhs. Target d/c for tomorrow as patient continues to deny SI and has safe placement available. Continued Medication Management: Different Medication Medications: Current Medications Acetaminophen (Tylenol Tab*) 650 mg PO Q4H PRN PRN Reason: PAIN or TEMP > 101 F Last Admin: 11/06/16 13:35 Dose: 650 mg Al Hydrox/Mg Hydrox/Simethicone (Maalox Plus*) 30 ml PO Q4H PRN PRN Reason: INDIGESTION Calcium Carbonate (Tums*) 1,000 mg PO Q4H PRN PRN Reason: INDIGESTION Last Admin: 11/05/16 14:03 Dose: 1,000 mg Ciprofloxacin (Cipro Tab*) 500 mg PO Q12HR [facility] Last Admin: 11/07/16 10:40 Dose: Not Given Sodium Chloride (Ns 0.9% 1000 Ml*) 1,000 mls @ 150 mls/hr IV PER RATE [facility] Last Admin: 11/01/16 15:16 Dose: 150 mls/hr Multivitamins (Theragran Tab*) 1 tab PO DAILY [facility] Last Admin: 11/07/16 08:58 Dose: 1 tab Propranolol HCl (Inderal Tab*) 10 mg PO BID [facility] Last Admin: 11/07/16 08:58 Dose: 10 mg Trazodone HCl (Desyrel Tab*) 100 mg PO BEDTIME PRN PRN Reason: INSOMNIA Last Admin: 11/06/16 22:16 Dose: 100 mg - Discharge Plan Discharge Plan: Outpatient Follow Up Outpatient Program: [facility]
[2016-11-07] MEDS ORDERED: Zolpidem TAB* 5 MG PO SCH (21:00)
[2016-11-08] MEDS: Ciprofloxacin TAB* 500 MG PO SCH (08:02)
[2016-11-08] MEDS: Vitamin THERAPEUTIC TAB PO SCH (08:03)
[2016-11-08] MEDS: Propranolol TAB* 10 MG PO SCH (08:03)
[2016-11-08] MEDS: Acetaminophen TAB* 325 MG PO PRN (10:02)
[2016-11-08 10:03] VITALS: BP 134/70
--- NOTE | 2016-11-08 12:59 | DS ---
DATE OF ADMISSION: 11/02/2016. DATE OF DISCHARGE: 11/08/2016. DISCHARGE DIAGNOSES: AXIS I: Unspecified anxiety disorder. AXIS II: Cluster B personality traits. 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 AXIS IV: Moderate, primary support stressors. AXIS V: At the time of admission was 44 and at the time of discharge is 59. CONDITION AT THE TIME OF DISCHARGE: Stable. The patient is denying suicidal ideations and has done so throughout her hospitalization. She is tolerating her medications quite well and she is future oriented, stating that she is looking forward to going to stay with her sisters. She is also looking forward to seeing her dog and her cats. We have created a safety plan with the assistance of the patient's two sisters. She will be staying with her sister Isaura until her sister Pari returns from vacation and at that time she will be staying with Pari. Both her sisters agree to take possession of the patient's medications to prevent any further overdose behaviors. The patient is agreeable with follow-up at [facility]. MENTAL STATUS EXAMINATION AT THE TIME OF DISCHARGE: The patient is an aging white female who is clean and well-groomed. She is wearing a dc sweat suit and has been walking with a walker. She is calm and cooperative, easy to establish a rapport with. Speech has a normal rate, tone, and volume. Mood appears to be euthymic with a full affect. Thought process is somewhat circumstantial. Thought content is significant for her desire to leave the hospital and see her pets. She denies suicidal or homicidal ideation. Denies auditory or visual hallucinations. Insight and judgment is fair given her willingness to follow-up with outpatient treatment. Cognitively, she is awake and alert with what would appear to be an average intellect. DISCHARGE INSTRUCTIONS TO THE PATIENT: A. Medications: She is taking Inderal 20 mg p.o. b.i.d., she takes Zolpidem 5 mg p.o. at bedtime, and she takes Hydroxyzine 25 mg every 6 hours as needed for anxiety. B. Diet: Regular. C. Activities: As tolerated. The patient is a nonsmoker. There are no diagnostic studies pending at the time of discharge. D. Follow-up care: The patient will be following up with [facility] within one week of discharge. There she has a psychotherapist and she sees psychiatrist Dr. Marta Hyed. In addition, she has a primary care provider names Dr. Gama, who is her family practice provider. The patient is complaining of temporomandibular joint pain and for this reason we are referring her to a local dentist's office. HOSPITAL COURSE - PART A: Reason for admission: The patient is a 70-year-old, , white female with a history of unspecified anxiety who was brought to the hospital after an apparent suicidal gesture in which she took an overdose of Mirtazapine 15 mg tablets. The patient reports that she is "on panic overdrive" due to her anxiety. She apparently filled her prescription most recently on the 28 of October and took the remaining 27 pills of Mirtazapine 15 mg , stating "I just wanted the anxiety to go away." She states that she then called her sister, Pari, to "make sure that she took care of my animals." The patient denies at this time that this was a formal suicidal attempt, but she states that her anxiety has been so out of control that she can no longer tolerate it. According to her, she was placed on Mirtazapine during a brief admission on our unit under the care of Dr. Wil Garza back in late August 2016. Initially it was started at 7.5 mg, but then increased on an outpatient basis to 15 mg. Apparently it was not working and so her psychiatrist, Dr. Marta Hyde, decided to decrease it back to 7.5 in the interest of ultimately discontinuing it. Prior to this, she had had negative reactions to Lexapro, Adderall, and Xanax when prescribed these by her former outpatient psychiatrist , Dr. Jeffrey Mcgill. When I asked her about the symptoms, she states that she has a clenching feeling and muscle spasms throughout her body, most notably in her arms and in her temporomandibular joint. She indicates that she was seen by an outpatient neurologist, Dr. Leighton Fairbanks, for this within the last year, but states that her imaging results were negative. The patient was somewhat overly dramatic during my interview with her. She was requesting that we do something to help her feel better, but she was reluctant to take any further medications. She denied depressed mood and denied problems with her memory. She denied any recent dramatic experiences or any lifetime traumatic events. HOSPITAL COURSE - PART B: Psychiatric treatment rendered: The patient was admitted to the Adult [facility] Unit where she was placed on q.30 minute checks for her own safety. We wanted to have more certainty that this was not a neurological condition, so we consulted Neurology and she was seen by neurologist Dr. Chinedu Morris on 11/06/2016. Dr. Morris performed a complete history and neurological work-up, as well as reviewing her head imaging. He did not feel that there were any neurological syndromes and that her symptoms were likely of a psychogenic nature. Given her intolerance of Mirtazapine and her past history of not tolerating Lexapro or benzodiazepines, we attempted to treat her with a low dose of Quetiapine 25 mg nightly. She took one dose of this, but then complained bitterly of such diffuse symptoms as blurred vision, constipation, and increased appetite. This medication was discontinued after only one dose. At the same time, we were noting that her systolic blood pressures were running in the 140s. For this reason, we started a trial of Inderal 20 mg p.o. b.i.d. with the hope that it could not only control her blood pressure, but also give her some relief from anxiety. The patient did seem to be less anxious on this medication. One other issue that was consistent throughout the hospitalization were her complaints of poor sleep. It is notable that often staff made reports on the overnight shifts that she would sleep throughout the night; however, she gave a different story, stating that she would toss and turn and that the lights at the hospital were keeping her up. Initially, we tried Ambien 5 mg nightly, but she complained of having a headache from this. Then we tried Trazodone at both 50 and 100 mg doses , but she got no relief from this. Ultimately she decided to resume Ambien, feeling like her headache was coming more for her TMJ issues. We resumed Ambien at the end of the hospitalization and she tolerated it well on the night prior to discharge. She is requesting that we continue this on an outpatient basis. She is also requesting something as a prn for anxiety and so we have granted her a 30 tablet supply of 25 mg Hydroxyzine. Because of her TMJ issues , we are referring her to a local dentist office. From the outside of the hospitalization, the patient has denied suicidality. We knew that her sister Pari would be out of town on the week of discharge, so we made contact with her other sister who is named Isaura. I spoke with this person in person and Isaura assured me that she will keep an eye on Mayi and that her and Pari will maintain control of the patient's medications to prevent further overdosing. The patient is future-oriented. She is stating that she misses her cats and her dog. She did allow us to speak with her son with whom she has a somewhat conflicted relationship and he states that her anxiety problems have been lifelong and they are connected with her problematic personality, which is often passive aggressive in nature as far as he is concerned. We have seen some of those personality traits on display on our unit. At any rate, her diagnosis remains unspecified anxiety disorder, rule out generalized anxiety disorder versus passive aggressive personality type. She is being referred back to [facility] for care in a less restrictive setting. [id number]/[facility] #: [id number] MTDSouleymane
== END 2016-11-08 13:00 | disposition home or self-care (01) | DRG 880 ==
LOC: ED 13:48 → BSU 11-02 01:36
PROVIDERS: ADMIT Psychiatry & Neurology Psychiatry; ATTEND Psychiatry & Neurology Psychiatry
DX: F41.9 Anxiety disorder, unspecified (principal); K90.0 Celiac disease; I25.10 Atherosclerotic heart disease of native coronary artery without angina pectoris; K58.9 Irritable bowel syndrome, unspecified; M19.90 Unspecified osteoarthritis, unspecified site; M26.609 Unspecified temporomandibular joint disorder, unspecified side; Z79.899 Other long term (current) drug therapy; Z88.0 Allergy status to penicillin; Z88.2 Allergy status to sulfonamides; Z87.891 Personal history of nicotine dependence; T43.022A Poisoning by tetracyclic antidepressants, intentional self-harm, initial encounter; Y92.009 Unspecified place in unspecified non-institutional (private) residence as the place of occurrence of the external cause; X58.XXXA Exposure to other specified factors, initial encounter
CPT/HCPCS: 36415; 70450; 71010; 80053; 80307; 80320; 80329; 81003; 81015; 82550; 82553; 83605; 83735; 84443; 84484; 85025; 85610; 85730; 87086; 90853; 93005; 99222; 99231; 99238; A9270-GY; G0480

== ENCOUNTER 2017-03-06 03:03 | Inpatient (IN) | payer MEDICARE ==
[2017-03-06] MEDS ORDERED: NS 0.9% 1000 ML* 1,000 ML IV ONE (03:15)
[2017-03-06] MEDS ORDERED: Ondansetron INJ* 2 MG/ML VIAL IV ONE (03:18)
[2017-03-06] MEDS ORDERED: Haloperidol INJ IV/IM* 5 MG/ML AMP IM ONE (03:52)
[2017-03-06] MEDS ORDERED: diPHENhydraMINE IV* 50 MG/ML 1 ml VIAL (BENADRYL) IM ONE (03:53)
[2017-03-06] MEDS ORDERED: LORazepam INJ* 2 MG/ML 1 ML VIAL IM ONE (03:53)
[2017-03-06] MEDS ORDERED: Haloperidol INJ IV/IM* 5 MG/ML AMP ONE (03:55)
[2017-03-06] MEDS ORDERED: diPHENhydraMINE IV* 50 MG/ML 1 ml VIAL (BENADRYL) ONE (03:55)
[2017-03-06] MEDS ORDERED: LORazepam INJ* 2 MG/ML 1 ML VIAL ONE (03:55)
[2017-03-06 04:06] LABS: Hematocrit 44 % (35-47); Hemoglobin 14.6 g/dl (12.0-16.0); Mean Corpuscular HGB Conc 33 g/dl (31-36); Mean Corpuscular Hemoglobin 29 pg (27-31); Mean Corpuscular Volume 87 fL (80-97); Mean Platelet Volume 7 um3 (7.4-10.4); Red Blood Count 4.99 10^6/ul (4.0-5.4); Red Cell Distribution Width 13 % (10.5-15); White Blood Count 21.2 10^3/ul (3.5-10.8)
[2017-03-06 04:07] LABS: Add Diff/Slide Review? Slide Review Added; Comments Flag Yes
[2017-03-06 04:16] LABS: Acetaminophen < 15 mcg/mL; Alcohol < 10 mg/dL (<10)
[2017-03-06 04:17] LABS: ALT 22 U/L (7-52); AST 27 U/L (13-39); Albumin 4.4 g/dL (3.2-5.2); Alkaline Phosphatase 83 U/L (34-104); Anion Gap 16 mmol/L (2-11); BUN/Creatinine Ratio 28.9 (8-20); Blood Urea Nitrogen 24 mg/dL (6-24); CO2 Carbon Dioxide 18 mmol/L (22-32); Calcium 9.1 mg/dL (8.6-10.3); Chloride 98 mmol/L (101-111); Creatine Kinase 87 U/L (10-223); EGFR African American 86.9 (>60); EGFR Non-African American 67.6 (>60); Globulin 3.1 g/dL (2-4); Glucose 229 mg/dL (70-100); Magnesium 1.8 mg/dL (1.9-2.7); Sodium 132 mmol/L (133-145); Total Protein 7.5 g/dL (6.4-8.9)
[2017-03-06] MEDS ORDERED: Magnesium Sulfate 1 GM IV* 1 GM/100 ML BAG IV ONE (04:44)
[2017-03-06] MEDS ORDERED: KCL 10 MEQ/50 ML IVPREMIX* 10 MEQ/50 ML BAG IV ONE (04:45)
[2017-03-06] MEDS ORDERED: Charcoal ACTIVATED* 25 GM/120 ML BTL PO ONE ×2 (04:49→10:45)
[2017-03-06] MEDS ORDERED: D5W IV ONE (04:51)
[2017-03-06] MEDS ORDERED: SODIUM BICARBONATE IV ONE (04:51)
[2017-03-06] MEDS ORDERED: Dextrose 50% Syringe 50 ML* 25 GM/50 ML SYRINGE IV PUSH ONE (04:57)
[2017-03-06 05:08] LABS: Eosinophils % 1 % (0-6); Immature Granulocytes 2 % (0-9); Myelocytes % 2 % (0-1); Neutrophil % 63 % (38-83); Reactive Lymph % 10 % (0-6)
[2017-03-06 05:10] LABS: Add Path Review? YES
[2017-03-06] MEDS ORDERED: Magnesium Sulfate IV* 0.5 GM/ML 2 ML VIAL (1 GM) ONE (05:11)
[2017-03-06] MEDS ORDERED: Ondansetron INJ* 2 MG/ML VIAL IV PRN (05:11)
[2017-03-06] MEDS ORDERED: Sodium Bicarbonate 8.4%* 50 ML SYRINGE IV ONE (05:18)
[2017-03-06 05:23] LABS: PCO2 Arterial 25 mmHg (35-45)
[2017-03-06 05:28] LABS: TSH (Thyroid Stimulating Horm) 11.78 mcIU/mL (0.34-5.60)
[2017-03-06] MEDS: KCL 20 MEQ/100 ML IVPREMIX* 20 MEQ/100 ML BAG IV SCH ×5 (05:47→21:54)
[2017-03-06 06:14] LABS: Urine Bacteria Absent (Absent); Urine Bilirubin Negative (Negative); Urine Glucose 3+(>=500 mg/dL) (Negative); Urine Nitrite Negative (Negative)
--- NOTE | 2017-03-06 06:25 | PN ---
Progress Note - Progress Note Date of Service: 03/06/17 Note: Addendum to H&P: EKG acquired at 5:58am notable for STD V3-V6 and QTc prolongation 486. First troponin 0.00. Will trend for 2 additional troponins and repeat EKG with next check. QTc prolongation noted. Care to be taken with QTc prolonging drugs.
[2017-03-06 06:40] LABS: Benzodiazepine Urine Screen None Detected (None Detect)
[2017-03-06] MEDS ORDERED: Sodium Bicarbonate 8.4% IV* 50 ML VIAL ONE (06:46)
[2017-03-06] MEDS: Heparin VIAL(*) 5000 UNITS/ML VIAL (FIVE THOUSAND) SUBCUT SCH ×3 (06:52→22:03)
[2017-03-06 07:06] LABS: BUN/Creatinine Ratio 23.9 (8-20); Calcium 8.6 mg/dL (8.6-10.3); EGFR African American 81.2 (>60); EGFR Non-African American 63.2 (>60); Potassium 3.2 mmol/L (3.5-5.0)
[2017-03-06 07:10] LABS: Troponin I 0.01 ng/mL (<0.04)
[2017-03-06 08:01] LABS: Salicylate 107.1 mg/dL (<30)
[2017-03-06 08:01] LABS: PCO2 Arterial 25 mmHg (35-45)
--- NOTE | 2017-03-06 08:15 | RAD ---
INDICATION: Overdose. Vomiting. COMPARISON: November 01, 2016 TECHNIQUE: An AP portable view obtained at 0420 hours is submitted. FINDINGS: Bones/Soft Tissues: There are no acute bony findings. Cardiomediastinal: The cardiomediastinal silhouette is normal. Lungs: There is hyperinflation with mild chronic interstitial changes. Pleura: There are no pleural effusions. Other: None IMPRESSION: NO ACTIVE DISEASE.
[2017-03-06] MEDS: Sodium Bicarbonate 8.4% IV* 100 MEQ in D5W 1000 ML BAG* 1,000 ML IV SCH ×2 (08:17→14:00)
[2017-03-06] MEDS: NS 0.9% 1000 ML* 4,000 ML IV ONE ×12 (08:30→15:17)
--- NOTE | 2017-03-06 09:22 | HP ---
CC: Seth Gama MD * ADMISSION HISTORY AND PHYSICAL: DATE OF ADMISSION: 03/06/17 PRIMARY CARE PROVIDER: Seth Gama MD. HEALTHCARE PROXY: The patient is unable to identify at this time. CODE STATUS: Full. SOURCE OF INFORMATION: History obtained from interview with the patient and review of the EMS records and review of past medical records. RELIABILITY: Poor. CHIEF COMPLAINT: Aspirin overdose. HISTORY OF PRESENT ILLNESS: This is a 71-year-old female with past medical history of anxiety disorder, depression, past suicide attempt in November after overdosing of mirtazapine, who today overdosed on an unknown amount of aspirin. EMS records were reviewed, indicate that the patient's sister activated 911 with response of [employer] to patient's home where she was found with projectile vomiting and incontinent stool in her home. EMS was activated, found patient similarly, incontinent stool and projectile vomiting. At that time, the patient indicated, "I don't want to go...I want to , need to put water down for my animals and I don't want to come back." She later told EMS "let me " in an attempt not to leave with first responders. She was ultimately transported to [facility] ED uneventfully, where she was found with an aspirin level of 50. On original presentation, she was agitated, combative, with continued vomiting. She received Benadryl as well as Haldol 5 mg IM and Ativan 2 mg IM with notable decrease in agitation and was placed in 2-point restraints for continued aggressiveness towards staff as well as removing medical equipment. When seen by this author, she was awake, indicated nausea and feeling tired, indicated tinnitus in her left ear that is not new, but she is able to indicate who she is and where she is, although is largely poorly interactive with his author, limiting evaluation of the patient at this time. PAST MEDICAL HISTORY: Past suicide attempts, anxiety, IBS, osteoarthritis. PAST SURGICAL HISTORY: I and D of left wrist, past tubal ligation. MEDICATIONS: Current medications per previous home medication list from her last discharge, unable to perform medication reconciliation, includes hydroxyzine 25 mg 3 times a day as needed, Ambien 5 mg at bedtime, propranolol 10 mg twice daily. ALLERGIES: To PENICILLIN and several antibiotics. FAMILY HISTORY: No formal history of mental illness or suicides. She is unable to contribute more meaningful information. Family history is the same. SOCIAL HISTORY: Patient is uncooperative. Does not contribute meaningfully towards social history, although review of past medical records indicates she is a former smoker and has abstained from alcohol for many years and has previously denied illicit drug use. REVIEW OF SYSTEMS: Largely unable to obtain from the patient. PHYSICAL EXAMINATION GENERAL: Appears older than her stated age. Largely flat affect, noninteractive with this author, although awake and alert. VITAL SIGNS: In the emergency room, 156/79, heart rate 73, respiratory rate 14 , lowest temperature 96 degrees Fahrenheit, respiratory rate is 14, 96% on room air. HEENT: Oropharynx is clear. She has dry mucous membranes. Sclerae anicteric. LUNGS: Clear. HEART: She has regular rate and rhythm. Soft 1 to 2/6 systolic ejection murmur. ABDOMEN: Soft, mildly distended, nontender to palpation. Positive bowel sounds. EXTREMITIES: Warm and well perfused. No clubbing, cyanosis, or edema. DIAGNOSTIC STUDIES/LABORATORY DATA: Pertinent laboratory data reviewed. Salicylate level 50.4. Sodium 132, potassium 3.0, chloride 98, bicarb 18, anion gap is 16, BUN 24, creatinine 0.83, glucose 229, lactic acid 4.2, magnesium 1.8, troponin I 0.00, INR 0.8. White blood cell count is 21.2, 62% neutrophils, hemoglobin 14.6, platelets 352. Data reviewed. Chest x-ray - impression: No active cardiopulmonary disease on this author's interpretation. ASSESSMENT AND PLAN: This is a 71-year-old female presenting with intentional aspirin overdose. 1. Aspirin overdose. Salicylate level in the 50s. Questionable whether her presentation is consistent with altered mental status, increased agitation, or this is part of her behavioral disturbance/personality disorder. I have given Ms. Marley 50 g of activated charcoal as well as bolused 100 mEq of sodium bicarbonate. ABG: First ABG is pending. Sodium bicarbonate drip with 100 mEq of sodium bicarbonate and D5W on 250 cc per hour is ordered with repeat ABG in 2 hours, as well as repeat BMP and salicylate level in 2 hours. The patient has received 50 g of dextrose. Receiving potassium and magnesium replacement. Does not require calcium replacement at this time. Next salicylate level will determine some of the ongoing therapy, which for now will include magnesium, potassium replacement, and systemic alkalinization, with repeat ABG and BMP and salicylate level 2 hours from their first check. The patient will be admitted to the ICU. Angelo catheter will be placed. Based on next salicylate levels, may require additional doses of activated charcoal. Though there was concern the patient may not drink the activated charcoal and she may need NG tube; however, was strongly encouraged to drink it in deference to an NG-tube placement. The patient willingly drank the charcoal. The patient will be kept with restraints in place to prevent removal of medical devices. The patient requires a one-to-one. Psychiatry consultation placed, although not contacted personally at this time. 3. Anxiety/personality disorder. Psych consult as above. 4. Increased lactic acidosis in the setting of aspirin toxicity. Trend with the next BMP and salicylate level. 5. Elevated white blood cell count, unclear etiology at this time. Urine pending. Check C. diff, although suspect diarrhea in the setting of overdose. We will send stool for stool culture. 6. DVT prophylaxis. Heparin subcu. [id number]/[facility] #: [id number] [facility]
[2017-03-06] MEDS: LORazepam INJ* 2 MG/ML 1 ML VIAL IV PUSH PRN ×2 (10:22→11:12)
[2017-03-06 10:54] LABS: Magnesium 2.2 mg/dL (1.9-2.7); Phosphorus 3.7 mg/dL (2.5-5.0)
[2017-03-06] MEDS ORDERED: LORazepam INJ* 2 MG/ML 1 ML VIAL IV PUSH ONE ×2 (11:28→18:29)
[2017-03-06] MEDS ORDERED: fentaNYL* 50 MCG/ML 2 ML VIAL (100 MCG VIAL) IV SLOW PU ONE (11:32)
[2017-03-06] MEDS ORDERED: fentaNYL* 50 MCG/ML 2 ML VIAL (100 MCG VIAL) ONE (11:33)
[2017-03-06 12:31] LABS: Venous Bicarbonate HCO3 17.6 mmol/L (24-28)
[2017-03-06 12:43] LABS: Hematocrit 46 % (35-47); Mean Corpuscular HGB Conc 33 g/dl (31-36); Mean Corpuscular Hemoglobin 29 pg (27-31); Mean Corpuscular Volume 88 fL (80-97); Mean Platelet Volume 7 um3 (7.4-10.4); Red Blood Count 5.26 10^6/ul (4.0-5.4); Red Cell Distribution Width 14 % (10.5-15)
[2017-03-06 12:44] LABS: ALT 28 U/L (7-52); AST 55 U/L (13-39); Alkaline Phosphatase 71 U/L (34-104); Anion Gap 15 mmol/L (2-11); BUN/Creatinine Ratio 17.5 (8-20); Blood Urea Nitrogen 17 mg/dL (6-24); CO2 Carbon Dioxide 18 mmol/L (22-32); Calcium 7.3 mg/dL (8.6-10.3); Chloride 108 mmol/L (101-111); EGFR African American 72.6 (>60); EGFR Non-African American 56.5 (>60); Globulin 2.9 g/dL (2-4); Glucose 162 mg/dL (70-100); Potassium 4.4 mmol/L (3.5-5.0); Sodium 141 mmol/L (133-145); Total Protein 6.9 g/dL (6.4-8.9)
--- NOTE | 2017-03-06 12:44 | PN ---
Progress Note - Progress Note Date of Service: 03/06/17 Note: CRITICAL CARE MEDICINE Date: 03/06/17 Time: 1100 SUBJECTIVE: Patient seen and examined. PHYSICAL EXAM: Vital Signs: Reviewed. HR 120s. RR 30s. RA with sat 96% Neurologic: awake, mod encephlaopathy and blunt affect; MOHAMUD but not wanting to following commands HEENT: pupils equal. Sclera anicteric. Trachea midline. Cardiovascular: S1 S2 tachy Respiratory: prolonged force exhalation, appearance of primary resp drive towards alkalosis Abdomen: Soft, nt. accessory muscle use Extremities: Cool Access: piv; rausch with osmotic diuresis LABS: Reviewed. salicylate level rising. AG rising. IMAGING: Reviewed. MEDICATIONS: Reviewed. ASSESSMENT: 71 F Salicylate overdose with toxicity, AG metabolic acidosis, lactic acidosis in alkalotic phase now, with suicidal intent, metabolic encephalopathy and psychological delirium PLAN: Neurologic: benzos prn. Cardiovascular: Intravascular quite dry and needs considerable fluid. NS for now and can supplement with bicarb gtt, but seemingly way behind with failing dynamics. Respiratory: Alkalotic phase increasing now. wob up. still with compensation for met acid, which is seemingly increasing as we have not neutralized clearance. Placed on 15L supplemental O2 to try and prevent further LA from wob but this wob, in conjunction with her inc meta acidosis and compensatory needs with worrisome encephalopathy and poor airway control may require intubation. However, trying to allow her to clear as her MV is probably almost 20L/Min at present and can get into trouble with MV if not mirroring needs. follow closely Gastrointestinal: did received charcoal, given mental will hold off on another dose. f/u labs., npo. sup Renal/Metabolic: may need emergent HD today as best course for her as may be very difficult to catch up with fluids and bicarb at this point given her course. Already K and Mag depleted and can replace. check s osm. Asked nephro to see urgently. Infectious Disease: no infective burden; reactive leukocytosis. Hematology: hemoconc; at risk for plt dysfunction. Endocrine: supplement dextrose with bicarb gtt and ensure ms not inhibited by qualitative glucoe deficiency prior to insulin blunting. Musculoskeletal: bedrest. Psych/Social: will need psych eval later. Supportive and preventative care as ordered. Vaccine: f/u needs SUP: H2 VTE prophylaxis: heparin. Rausch catheter given critical illness, monitoring needs for accurate assessment of AKHIL and KDIGO criteria for critically ill patients and to avoid potential harms of urinary retention, skin breakdown/ulcers. Disposition: ICU Code Status: Full Critical Care Time: 65min Lili Toyn DO
--- NOTE | 2017-03-06 12:47 | PN ---
Progress Note - Progress Note Date of Service: 03/06/17 Note: CRITICAL CARE MEDICINE PROCEDURE NOTE DATE: 03/06/17 TIME: 1215 SERVICE: Critical Care Medicine LOCATION OF PROCEDURE: ICU PROCEDURE: Central line insertion for HD. PROCEDURALIST: Dr. Tony Consent obtain: No, procedure performed emergently Time out held: Yes INDICATION: Acute salicylate toxicity needing emergent HD PROCEDURE: Oxygenation maintained and vitals monitored. Patient in supine position to trendelenberg as quite dry SITE: RIGHT Internal jugular Site preparation with chlorhexidine locally. Full sterile drape, gown, hat, mask, gloves. 5ml 1% Lidocaine utilized at incision site. Standard sterile Seldinger technique utilized via ultrasound guidance and arrow catheter was inserted to 16cm and sutured in place. Good blood return. Minimal blood loss. Site dressed with tegaderm. Portable chest x-ray pending. Patient otherwise tolerated well. Lili Tony, DO
--- NOTE | 2017-03-06 13:07 | RAD ---
Indication: Dialysis line placement. Comparison: 0420 hours March 06, 2017 Technique: Upright AP 1237 hours Report: Distal tip of the RIGHT IJ central venous catheter is at the level of the superior vena cava directed central. Negative for pneumothorax. Bilateral apical pleural parenchymal scarring. The lungs and pleural spaces are otherwise grossly clear. The heart, pulmonary vasculature, and mediastinal contours are unremarkable. IMPRESSION: Distal tip of the RIGHT IJ central venous catheter is at the level of the superior vena cava directed central. Negative for pneumothorax.
[2017-03-06] MEDS ORDERED: Propofol* 100 ML ONE (13:17)
--- NOTE | 2017-03-06 13:22 | CONS ---
NEPHROLOGY CONSULTATION: DATE OF CONSULT: 03/06/17 HISTORY OF PRESENT ILLNESS: Ms. Marley is a 71-year-old female with a history of previous suicidal attempt secondary to depression and anxiety. She apparently took an unknown quantity of aspirin. She was checked on by her sister who sent the police to her house; they found she was having projectile vomiting and incontinence of stool. She was brought to the hospital emergency room where she was basically arousable, but uncommunicative. At presentation she was not tachypneic and her blood pressure was stable. Throughout the morning she had become more tachypneic using accessory muscles of respiration. She has been found to have an increasing salicylate level and an expanding anion gap metabolic acidosis with hypokalemia. She has been having fluid resuscitation at the present time. According to the hospital record she has a history of osteoarthritis and irritable bowel syndrome other than previous suicide attempts and anxiety and depression. MEDICATIONS: Apparently, her medications included; 1. Hydroxyzine 25 mg 3 times a day. 2. Ambien 5 mg at bedtime. 3. Propranolol 10 mg twice a day. ALLERGIES: She is allergic to PENICILLIN and other antibiotics. SOCIAL HISTORY: According to the record she is a previous smoker. She has been abstinent from alcohol for a number of years. REVIEW OF SYSTEMS: I am unable to collect her review of systems. PHYSICAL EXAMINATION: She is a tachypneic white female who opens her eyes to stimulation, but makes no verbal response to questioning. Blood pressures 133/ 58 with a pulse of 121, this has been progressively rising; respiratory rate is 40 at this time. Her sclerae are anicteric. Her mucous membranes are moist. She has considerable jugular venous filling during inspiration. The chest is clear. The heart revealed a regular rhythm, which was tachycardic. I did not hear any murmurs. The abdomen is distended. She is using abdominal musculature as part of her respiratory effort. Extremities: There is no cyanosis, clubbing, or edema. There are no splinter hemorrhages. DIAGNOSTIC STUDIES/LAB DATA: Review of her laboratory studies reveals a white count of 21.2, hemoglobin of 14.6. Her baseline is in the mid 13 range, platelet count of 352,000, INR of 0.82. Her blood gas at 7:45 this morning revealed a pH of 7.47, pCO2 of 25, pO2 of 93. Sodium 136, potassium 3.2 up from 3.0 at presentation; total CO2 is 17, it was 18 on presentation; chloride of 99; anion gap is 20 and that is up from 16 on presentation; lactic acid of 4.9; glucose 323; magnesium 2.2; phosphorus of 3.7; salicylate level of 119.8, this has been progressively rising throughout the morning. IMPRESSION: 1. Aspirin overdose. 2. Increased anion gap metabolic acidosis. 3. Hypokalemia. The hypokalemia is significant, in that it may be an indicator of chronic salicylate poisoning. The fact that she is so tachypneic in the face of alkalemia also suggests intracellular salicylate trapping. Because of her rising salicylate level and her worsening increased anion gap acidosis, I think we should probably proceed onto hemodialysis at the present time. I have discussed this case at length with Dr. Tony and he is in agreement. Unfortunately, I do not have anyone in the family to review the risks of dialysis with at the present time. We are going to find someone. [id number]/[facility] #: [id number] MTDSouleymane
[2017-03-06] MEDS: fentaNYL* 50 MCG/ML 5 ML VIAL (250 MCG VIAL) ONE ×2 (13:25→13:40)
[2017-03-06] MEDS: Propofol* 10 MG/ML 20 ML BTL IV PUSH ONE ×2 (13:25→13:40)
--- NOTE | 2017-03-06 14:01 | PN ---
Progress Note - Progress Note Date of Service: 03/06/17 Note: CRITICAL CARE MEDICINE PROCEDURE NOTE DATE: 03/06/17 TIME: 1340 SERVICE: Critical Care Medicine LOCATION OF PROCEDURE: ICU PROCEDURE: Endotracheal intubation PROCEDURALIST: Dr. Tony Consent obtain: No, procedure performed emergently Time out held: Not indicated INDICATION: Acute respiratory failure sec to salicylate overdose now with worsening clinical respiratory failure with further encephalopathy, upper airway obstruction, now fever with potential aspiration with increasing HR now towards 150s despite volume loading, yet now declining resp drive and clinical phase of further metabolic acidosis and now towards respiratory decompensation acidosis needing to maintain better MV and acid compensation as we are setting up for HD. PROCEDURE: Oxygenation maintained and vitals monitored. Patient in supine position. Pre-medication with fentanyl 100mcg / propofol 50mg. Glidescope #3 inserted with Grade 1 view obtained. 8.5 endotracheal tube inserted to 22cm lip with good visualization acrossed the vc; 8.5 choosen to maximize airway radius with need to maintain high flow and mv . Good chest rise with breath sounds appreciated in bilaterally lung virk. Pt remained with resp drive throughout. Bag ventilation to match respirations and placed on cpap. Escalated cpap with improved exhalation time with MV towards 30lpm at present. EtCO2 into mid 20s. Portable chest x-ray pending. Patient otherwise tolerated well. Lili Tony DO
[2017-03-06] MEDS ORDERED: Phenylephrine INJ* 50 MG in NS 0.9% 250 ML* 245 ML IV ONE (15:02)
[2017-03-06] MEDS: Chlorhexidine MOUTHWASH 0.12%* 15 ML UDC TOPICAL SCH ×2 (15:33→20:08)
[2017-03-06] MEDS: NS 0.9% 1000 ML* 2,000 ML IV ONE ×2 (15:33→15:34)
[2017-03-06] MEDS ORDERED: Propofol* 100 ML IV SCH (16:00)
[2017-03-06 17:07] LABS: Venous Bicarbonate HCO3 28.2 mmol/L (24-28)
[2017-03-06 17:17] LABS: BUN/Creatinine Ratio 14.6 (8-20); EGFR African American 196.1 (>60); EGFR Non-African American 152.5 (>60)
--- NOTE | 2017-03-06 17:40 | RAD ---
INDICATION: Endotracheal tube placement COMPARISON: Most recent chest x-ray from the same date acquired at 1148 hours TECHNIQUE: Single AP portable view of the chest was obtained at 1604 hours FINDINGS: Image quality is compromised due to the relative inferiority of a portable chest x-ray. The right neck central line terminates at the superior vena cava. There is a gastric tube overlying the midline mediastinum and terminating below the level the diaphragm overlying the expected location of the gastric antrum. An endotracheal tube has been positioned with the distal tip flush with the lower margin of the clavicles. The heart and mediastinum exhibit normal size and contour. The lungs are grossly clear. There is no evidence of a large pleural effusion. Visualized bones are normal for the patient's age. IMPRESSION: Appropriate position of lines and tubes according to radiographic standards.
[2017-03-06 17:41] LABS: Salicylate 42.5 mg/dL (<30)
[2017-03-06] MEDS ORDERED: Magnesium Sulfate 2 GM IV* 2 GM/50 ML BAG IVPB ONE (18:29)
[2017-03-06] MEDS ORDERED: Calcium Gluconate INJ* 1 GM in NS 0.9% 50 ML* 50 ML IVPB ONE (19:49)
[2017-03-06] MEDS: Albumin Human 5%* 250 ML in PREMIX* 0 ML IV SCH ×4 (19:52→21:02)
[2017-03-06] MEDS ORDERED: Albumin Human 5%* 1,000 ML in PREMIX* 0 ML IV SCH (20:00)
[2017-03-06] MEDS: Norepinephrine 16MCG/ML IVPRE* 4,000 MCG/250 ML BAG IV SCH (20:19)
[2017-03-06 20:50] LABS: FIO2 100; Pressure Support 25
[2017-03-06 21:08] LABS: PCO2 Arterial < 20 mmHg (35-45)
[2017-03-06 21:22] LABS: Venous Bicarbonate HCO3 25.3 mmol/L (24-28)
[2017-03-06 21:38] LABS: BUN/Creatinine Ratio 15.9 (8-20); Calcium 11.1 mg/dL (8.6-10.3); EGFR African American 107.6 (>60); EGFR Non-African American 83.6 (>60); Potassium 2.8 mmol/L (3.5-5.0)
[2017-03-06] MEDS: NS 0.9% w/ 20 Meq KCL 1000 ML* 1,000 ML IV SCH (22:05)
[2017-03-06 22:46] LABS: Venous Bicarbonate HCO3 24.5 mmol/L (24-28)
[2017-03-06 22:58] LABS: BUN/Creatinine Ratio 16.9 (8-20); Calcium 6.6 mg/dL (8.6-10.3); EGFR African American 94.8 (>60); EGFR Non-African American 73.7 (>60)
[2017-03-06 23:18] LABS: PCO2 Arterial 22 mmHg (35-45)
[2017-03-07] MEDS: LORazepam INJ* 2 MG/ML 1 ML VIAL IV PUSH PRN ×4 (00:14→23:07)
[2017-03-07] MEDS: Chlorhexidine MOUTHWASH 0.12%* 15 ML UDC TOPICAL SCH ×3 (00:45→07:46)
[2017-03-07 00:59] LABS: BUN/Creatinine Ratio 16.5 (8-20); Blood Urea Nitrogen 14 mg/dL (6-24); CO2 Carbon Dioxide 21 mmol/L (22-32); Calcium 6.6 mg/dL (8.6-10.3); Chloride 106 mmol/L (101-111); EGFR African American 84.5 (>60); EGFR Non-African American 65.7 (>60); Glucose 124 mg/dL (70-100); Sodium 136 mmol/L (133-145)
[2017-03-07 01:19] LABS: Anion Gap 9 mmol/L (2-11)
[2017-03-07 01:54] LABS: FIO2 100
[2017-03-07 01:57] LABS: PCO2 Arterial 21 mmHg (35-45)
[2017-03-07 02:09] LABS: Salicylate 52.7 mg/dL (<30)
[2017-03-07] MEDS: Norepinephrine 16MCG/ML IVPRE* 4,000 MCG/250 ML BAG IV SCH (02:38)
[2017-03-07 04:22] LABS: FIO2 50; Resp Rate 16
[2017-03-07] MEDS: KCL 20 MEQ/100 ML IVPREMIX* 20 MEQ/100 ML BAG IV SCH ×4 (05:07→17:15)
[2017-03-07] MEDS: Heparin VIAL(*) 5000 UNITS/ML VIAL (FIVE THOUSAND) SUBCUT SCH ×2 (05:07→14:42)
[2017-03-07 06:17] LABS: Venous Bicarbonate HCO3 23.6 mmol/L (24-28)
[2017-03-07 06:19] LABS: Hematocrit 31 % (35-47); Hemoglobin 10.4 g/dl (12.0-16.0); Mean Corpuscular HGB Conc 34 g/dl (31-36); Mean Corpuscular Hemoglobin 29 pg (27-31); Mean Corpuscular Volume 85 fL (80-97); Mean Platelet Volume 7 um3 (7.4-10.4); Red Blood Count 3.59 10^6/ul (4.0-5.4); Red Cell Distribution Width 13 % (10.5-15)
[2017-03-07 06:37] LABS: ALT 51 U/L (7-52); AST 129 U/L (13-39); Alkaline Phosphatase 32 U/L (34-104); Anion Gap 10 mmol/L (2-11); BUN/Creatinine Ratio 16.5 (8-20); Blood Urea Nitrogen 16 mg/dL (6-24); CO2 Carbon Dioxide 21 mmol/L (22-32); Chloride 111 mmol/L (101-111); EGFR African American 72.6 (>60); EGFR Non-African American 56.5 (>60); Globulin 1.6 g/dL (2-4); Glucose 107 mg/dL (70-100); Potassium 3.1 mmol/L (3.5-5.0); Sodium 142 mmol/L (133-145); Total Protein 4.6 g/dL (6.4-8.9)
[2017-03-07 06:47] LABS: PCO2 Arterial < 20 mmHg (35-45)
[2017-03-07 06:58] LABS: Calcium 6.4 mg/dL (8.6-10.3)
[2017-03-07] MEDS: NS 0.9% w/ 20 Meq KCL 1000 ML* 1,000 ML IV SCH (08:21)
--- NOTE | 2017-03-07 09:37 | PN ---
Progress Note - Progress Note Date of Service: 03/07/17 Note: CRITICAL CARE MEDICINE Date: 03/07/17 Time: 830 SUBJECTIVE: Patient seen and examined. PHYSICAL EXAM: Vital Signs: Reviewed. HR 60-70s. on levo but coming down as bp fine. rr teens and changed to cpap Neurologic: awake, following commands, denies pain. abraham HEENT: pupils equal. Sclera anicteric. Trachea midline. ett in place 8.5 Cardiovascular: S1 S2 Respiratory: good phases no wheeze nor rales, mild coarseness Abdomen: Soft, nt. no accessory muscle use Extremities: warm; Left UE edema Access: RIJ intact; rausch with clear urine LABS: Reviewed. salicylate 44. IMAGING: Reviewed. MEDICATIONS: Reviewed. ASSESSMENT: 71 F Salicylate overdose with toxicity, AG metabolic acidosis, lactic acidosis in alkalotic phase now, with suicidal intent, metabolic encephalopathy and psychological delirium with acute resp failure sec to resp acidosis and inability to compensate with concominant airway failure PLAN: Neurologic: benzos prn. off prop. mvi suppl Cardiovascular: Intravascular better and can continue on IVF today as Uout still equilibrating. Respiratory: much better. cpap tolerating well. MV ~10lpm now. look to liberate. Gastrointestinal: lfts with some insult from globally cellular hypoperfusion but should re-equilibrate. po later today Renal/Metabolic: did well post HD. Uout well. can reserve HD today. d/w nephro and appreciate the assistance Infectious Disease: no infective burden; reactive leukocytosis improving. Hematology: stable. hsq Endocrine: supplement dextrose until diet today and then can stop. Musculoskeletal: oob later Psych/Social: will need psych eval tomorrow at earliest. Supportive and preventative care as ordered. Vaccine: f/u needs SUP: H2 VTE prophylaxis: heparin. Rausch catheter given critical illness, monitoring needs for accurate assessment of AKHIL and KDIGO criteria for critically ill patients and to avoid potential harms of urinary retention, skin breakdown/ulcers. Disposition: ICU Code Status: Full Critical Care Time: 45min Lili Tony DO
[2017-03-07] MEDS ORDERED: Potassium Phosphate IV* 20 MMOLE in NS 0.9% 250 ML* 250 ML IVPB ONE (09:39)
[2017-03-07] MEDS: D5LR 20 MEQ KCL 1000 ML BAG* 1,000 ML IV SCH ×2 (09:51→11:25)
[2017-03-07] MEDS ORDERED: Magnesium Sulfate 2 GM IV IVPB ONE (15:00)
[2017-03-07 21:11] LABS: BUN/Creatinine Ratio 18.8 (8-20); EGFR African American 73.5 (>60); EGFR Non-African American 57.1 (>60); Magnesium 2.7 mg/dL (1.9-2.7); Potassium 4.1 mmol/L (3.5-5.0)
[2017-03-07] MEDS ORDERED: Dextrose 50% Syringe 50 ML* 25 GM/50 ML SYRINGE IV PUSH ONE (23:21)
[2017-03-08] MEDS: Heparin VIAL(*) 5000 UNITS/ML VIAL (FIVE THOUSAND) SUBCUT SCH ×4 (00:41→22:38)
[2017-03-08] MEDS: LORazepam INJ* 2 MG/ML 1 ML VIAL IV PUSH PRN ×5 (03:24→14:11)
[2017-03-08 05:28] LABS: Hematocrit 30 % (35-47); Hemoglobin 10.1 g/dl (12.0-16.0); Mean Corpuscular HGB Conc 33 g/dl (31-36); Mean Corpuscular Hemoglobin 29 pg (27-31); Mean Corpuscular Volume 87 fL (80-97); Mean Platelet Volume 7 um3 (7.4-10.4); Red Blood Count 3.51 10^6/ul (4.0-5.4); Red Cell Distribution Width 14 % (10.5-15); White Blood Count 12.8 10^3/ul (3.5-10.8)
[2017-03-08 05:43] LABS: Albumin 2.9 g/dL (3.2-5.2); Calcium 7.4 mg/dL (8.6-10.3); EGFR African American 81.2 (>60); EGFR Non-African American 63.2 (>60); Globulin 1.9 g/dL (2-4); Potassium 3.7 mmol/L (3.5-5.0); Total Bilirubin 0.2 mg/dL (0.2-1.0); Total Protein 4.8 g/dL (6.4-8.9)
[2017-03-08] MEDS ORDERED: LORazepam INJ* 2 MG/ML 1 ML VIAL IV PUSH ONE ×2 (06:00→12:07)
[2017-03-08] MEDS ORDERED: Dextrose 50% Syringe 50 ML* 25 GM/50 ML SYRINGE IV PUSH STA (06:10)
[2017-03-08 07:29] LABS: Magnesium 2.2 mg/dL (1.9-2.7); Phosphorus 1.6 mg/dL (2.5-5.0)
[2017-03-08 07:33] LABS: Salicylate 31.1 mg/dL (<30)
[2017-03-08] MEDS: Vitamin THERAPEUTIC TAB PO SCH (09:22)
[2017-03-08] MEDS ORDERED: Potassium Phosphate IV* 30 MMOLE in NS 0.9% 250 ML* 250 ML IVPB ONE (10:30)
[2017-03-08] MEDS: Haloperidol INJ IV/IM* 5 MG/ML AMP IV SLOW PU PRN (10:47)
[2017-03-08] MEDS: D5W 1/2 NS KCl 20 Meq 1000 ML* 1,000 ML IV SCH ×2 (11:08→21:03)
--- NOTE | 2017-03-08 11:35 | RAD ---
HISTORY: Follow-up respiratory failure and tachypnea COMPARISONS: March 06, 2017 VIEWS: 1: frontal portable view of the chest at 11:24 PM FINDINGS: LINES AND TUBES: The right internal jugular venous catheter is noted with the tip overlying the cavoatrial junction. CARDIOMEDIASTINAL SILHOUETTE: The cardiomediastinal silhouette is normal for portable technique. PLEURA: The costophrenic angles are sharp. No pleural abnormalities are noted. LUNG PARENCHYMA: There is patchy alveolar opacification of the right lung base and to lesser extent of left lung base. ABDOMEN: The upper abdomen is clear. There is no subphrenic gas. BONES AND SOFT TISSUES: No bone or soft tissue abnormalities are noted. IMPRESSION: LINES AND TUBES ABOVE. BIBASILAR ATELECTASIS VERSUS CONSOLIDATION.
--- NOTE | 2017-03-08 11:48 | PN ---
Progress Note - Progress Note Date of Service: 03/08/17 Note: CRITICAL CARE MEDICINE Date: 03/08/17 Time: 930 SUBJECTIVE: Patient seen and examined. PHYSICAL EXAM: Vital Signs: Reviewed. HR 70s-100s. bp stable. tachypnea Neurologic: awake, follows commands, but delirium evident. abraham. but actually with better mentation and cooperation today HEENT: pupils equal and small 2mm reactive. Sclera anicteric. Trachea midline. Cardiovascular: S1 S2 distant Respiratory: more prolonged expiratory phase and autopeep attempts, with dec bs on right and squalk bl Abdomen: Soft, nt. mild accessory muscle use Extremities: warm; Left UE edema present Access: RIJ intact; rausch was self removed overnight LABS: Reviewed. salicylate 31. IMAGING: Reviewed. MEDICATIONS: Reviewed. ASSESSMENT: 71 F Salicylate overdose with toxicity, AG metabolic acidosis, lactic acidosis in alkalotic phase now, with suicidal intent, metabolic encephalopathy and psychological delirium with acute resp failure sec to resp acidosis and inability to compensate with concomitant airway failure but improved post HD and libertion from vent 03/07 and allowing her to maintain since. PLAN: Neurologic: benzos prn. haldol prn. consider precedex if really needing. nonfocal Cardiovascular: Intravascular maintain and interstitial up a bit. allow less volume today but still supplement as still needing clearance. Respiratory: resuming some resp alkalosis now with still mixed acid base. allowing her to maintain, but quell delirium. check cxr to ensure this is just small effusions and atelctasis and not missing a neg pressure pulm edema component. should benefit from flutter, metaneb today. question component of TBM Gastrointestinal: lfts with the insult post hypoperfusion but should be recovery phase now. declining po. no ng yet. Renal/Metabolic: uout ok but less; keep ivf and monitor. salicylate slow clearance but not injurious at present to warrant further bicarb. Infectious Disease: no infective burden but may have some aspiration. no fever. f/u Hematology: stable post hydration. hsq Endocrine: supplement dextrose as not taking diet and need to avoid clincal hypoglu Musculoskeletal: oob Psych/Social: psych eval pending improved medical dynamics. likely not to be medically clear for inpt pysch till after weekend at this rate. Supportive and preventative care as ordered. Vaccine: f/u needs SUP: H2 VTE prophylaxis: heparin. Disposition: ICU Code Status: Full Critical Care Time: 40min Lili Tony DO
[2017-03-08] MEDS ORDERED: fentaNYL* 50 MCG/ML 2 ML VIAL (100 MCG VIAL) IV SLOW PU ONE (12:05)
[2017-03-08] MEDS ORDERED: Albuterol 2.5 MG/3 ML NEB.SOL* (0.083%) ONE (12:39)
[2017-03-08] MEDS ORDERED: Albuterol 2.5 MG/3 ML NEB.SOL* (0.083%) INH ONE (12:41)
--- NOTE | 2017-03-08 13:34 | ED ---
Pao Hsieh Alfonso, scribed for Kenna Sandhu MD on 03/06/17 at 0400 . Substance Abuse/Use - HPI Summary HPI Summary: LEVEL 5 CAVEAT DUE TO AMS. 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 Per EMS she consumed a full bottle. Symptoms aggravated and alleviated by nothing. EMS reports SI (I want to "), diarrhea, urinary incontinence, and vomiting pill fragments. The patient reports ear ringing. Pt does not answer questions, stares at me and states "I can't hear you". Per EMS pt lives with sister, but her sister is not coming to the ED. Per EMS, pt called 911 herself. Pt vomited white liquid with pill fragments approx 20cc in ED on presentation and moved her bowels on the commode, soft brown stool with no pill fragments, and no blood. 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 Aggravating Factor(s): Nothing Alleviating Factor(s): Nothing Associated Signs And Symptoms: Confused, Agitated, Vomiting, Diarrhea, Intentional Ingestion, Other: - SI (I want to ), diarrhea, urinary incontinence, and vomiting. The patient reports ear ringing. Related Hx: Suicidal, Prior Psych Admission - x2 [place] [facility] [place] Allergies/Home Medications Allergies/Adverse Reactions: Allergies Allergy/AdvReac Type Severity Reaction Status Date / Time Penicillins Allergy Unknown Unknown Verified 11/04/16 12:24 Reaction Details Sulfa Antibiotics Allergy Unknown Unknown Verified 11/04/16 12:24 Reaction Details PMH/Surg Hx/FS Hx/Imm Hx Previously Healthy: No Endocrine/Hematology History: Denies: Hx Diabetes Cardiovascular History: Reports: Other Cardiovascular Problems/Disorders - Rheumatic fever as a child. Denies: Hx Hypertension, Hx Pacemaker/ICD Respiratory History: Reports: Other Respiratory Problems/Disorders - CHRONIC SINUS PROBLEMS-POST NASAL DRIP GI History: Reports: Hx Diverticulosis, Hx Hiatal Hernia, Hx Irritable Bowel, Other GI Disorders - Celiac Disease History: Denies: Hx Dialysis, Hx Renal Disease Musculoskeletal History: Reports: Hx Arthritis Denies: Hx Osteoporosis Sensory History: Reports: Hx Contacts or Glasses, Other Sensory Impairments - Tinnitus Denies: Hx Hearing Aid Opthamlomology History: Reports: Hx Contacts or Glasses, Other Sensory Impairments - Tinnitus Psychiatric History: Reports: Hx Anxiety, Hx Depression, Hx Inpatient Treatment , Hx Community Mental Health Tx Denies: Hx Eating Disorder, Hx Panic Disorder, Hx Suicide Attempt, Hx of Violent Episodes Against Others - Cancer History Cancer Type, Location and Year: Dysplasia Hx Chemotherapy: No Hx Radiation Therapy: No - Surgical History Surgery Procedure, Year, and Place: TUBAL LIGATION-1974 WISDOM TEETH REMOVED COLONOSCOPY. Left hand tendon repair post cat bite Hx Anesthesia Reactions: No - Immunization History Date of Tetanus Vaccine: unknown Infectious Disease History: Unable to Obtain/Confirm Infectious Disease History: Denies: Traveled Outside the [place] in Last 30 Days - Family History Known Family History: Positive: Other - breast CA, ovarian CA - Social History Lives: With Family Alcohol Use: Rare Alcohol Amount: WINE ON OCCASION Hx Substance Use: No Substance Use Type: Reports: None Hx Tobacco Use: Yes Smoking Status (MU): Former Smoker Type: Cigarettes Amount Used/How Often: 1 PACK EVERY 2 WEEKS X 10 YRS Have You Smoked in the Last Year: No Review of Systems - ROS Summary Review of Systems Summary: LEVEL 5 CAVEAT DUE TO AMS. Positive: Other - ear ringing Positive: Vomiting, Diarrhea Positive: incontinence Psychological: Other - Possible ASA overdose, SI (I want to ), All Other Systems Reviewed And Are Negative: No Physical Exam Triage Information Reviewed: Yes Vital Signs On Initial Exam: Initial Vitals Temp Pulse Resp BP Pulse Ox 96.0 F 73 14 156/79 96 03/06/17 03:06 03/06/17 03:06 03/06/17 03:06 03/06/17 03:06 03/06/17 03:06 Vital Signs Reviewed: Yes Completion Of Physical Exam Limited Due To: Level 5 Appearance: Positive: No Pain Distress, Ill-Appearing - moderate, no signs of trauma Skin: Positive: Warm, Diaphoretic Head/Face: Positive: Normal Head/Face Inspection Eyes: Positive: EOMI, DEEP, Conjunctiva Clear, Other: - 2mm and reactive pupils ENT: Positive: Normal ENT inspection, Pharynx normal, TMs normal, Other - reports diminished hearing Neck: Positive: Supple, Nontender, No Lymphadenopathy Respiratory/Lung Sounds: Positive: Clear to Auscultation, Breath Sounds Present , Other - No respiratory distress Cardiovascular: Positive: RRR, Pulses are Symmetrical in both Upper and Lower Extremities, Other - Brisk capillary refill. Negative: Murmur Abdomen Description: Positive: Nontender, Soft Bowel Sounds: Positive: Present Musculoskeletal: Positive: Strength/ROM Intact Neurological: Positive: Sensory/Motor Intact, CN Intact II-III, Normal Gait, Disoriented - to place and time, Facial Symmetry, Speech Normal Psychiatric: Positive: Other - Combative. Agitated., Patient Uncooperative for Exam AVPU Assessment: Alert Diagnostics - Vital Signs Vital Signs Temp Pulse Resp BP Pulse Ox 03/06/17 03:06 96.0 F 73 14 156/79 96 - Laboratory Lab Results: Lab Results 03/06/17 03/06/17 03/06/17 Range/Units 03:48 03:48 03:48 WBC 21.2 H (3.5-10.8) 10^3/ul RBC 4.99 (4.0-5.4) 10^6/ul Hgb 14.6 (12.0-16.0) g/dl Hct 44 (35-47) % MCV 87 (80-97) fL MCH 29 (27-31) pg MCHC 33 (31-36) g/dl RDW 13 (10.5-15) % Plt Count 352 (150-450) 10^3/ul MPV 7 L (7.4-10.4) um3 Immature Gran % (Auto) 2 (0-9) % Neut % (Auto) 62.9 (38-83) % Lymph % (Auto) 29.2 (25-47) % [place] % (Auto) 7.0 (1-9) % Eos % (Auto) 0.5 (0-6) % Baso % (Auto) 0.4 (0-2) % Absolute Neuts (auto) 13.3 H (1.5-7.7) 10^3/ul Absolute Lymphs (auto) 6.2 H (1.0-4.8) 10^3/ul Absolute Monos (auto) 1.5 H (0-0.8) 10^3/ul Absolute Eos (auto) 0.1 (0-0.6) 10^3/ul Absolute Basos (auto) 0.1 (0-0.2) 10^3/ul Absolute Nucleated RBC 0.02 10^3/ul Neutrophils % 63 (38-83) % Lymphocytes % 12 L (25-47) % Reactive Lymphs % 10 H (0-6) % Monocytes % 12 (0-13) % Eosinophils % 1 (0-6) % Myelocytes % 2 H (0-1) % Nucleated RBC % 0.1 Normal RBC Morphology Not Reportable Hem Pathologist Commnt INR (Anticoag Therapy) (0.89-1.11) ABG pH (7.35-7.45) ABG pCO2 (35-45) mmHg ABG pO2 (80-100) mmHg ABG HCO3 (19-31) mmol/L ABG O2 Saturation (95-98) % ABG Base Excess (-2.0-2.0) Sodium 132 L (133-145) mmol/L Potassium 3.0 L (3.5-5.0) mmol/L Chloride 98 L (101-111) mmol/L Carbon Dioxide 18 L (22-32) mmol/L Anion Gap 16 H (2-11) mmol/L BUN 24 (6-24) mg/dL Creatinine 0.83 (0.51-0.95) mg/dL Est GFR ( Amer) 86.9 (>60) Est GFR (Non-Af Amer) 67.6 (>60) BUN/Creatinine Ratio 28.9 H (8-20) Glucose 229 H (70-100) mg/dL Lactic Acid 4.2 H* (0.5-2.0) mmol/L Calcium 9.1 (8.6-10.3) mg/dL Magnesium 1.8 L (1.9-2.7) mg/dL Total Bilirubin 0.20 (0.2-1.0) mg/dL AST 27 (13-39) U/L ALT 22 (7-52) U/L Alkaline Phosphatase 83 (34-104) U/L Ammonia (16-53) mol/L Total Creatine Kinase 87 (10-223) U/L Troponin I 0.00 (<0.04) ng/mL Total Protein 7.5 (6.4-8.9) g/dL Albumin 4.4 (3.2-5.2) g/dL Globulin 3.1 (2-4) g/dL Albumin/Globulin Ratio 1.4 (1-3) TSH 11.78 H (0.34-5.60) mcIU/mL Salicylates 50.40 H* (<30) mg/dL Acetaminophen < 15 mcg/mL Serum Alcohol < 10 (<10) mg/dL 03/06/17 03/06/17 03/06/17 Range/Units 03:48 03:48 05:10 WBC (3.5-10.8) 10^3/ul RBC (4.0-5.4) 10^6/ul Hgb (12.0-16.0) g/dl Hct (35-47) % MCV (80-97) fL MCH (27-31) pg MCHC (31-36) g/dl RDW (10.5-15) % Plt Count (150-450) 10^3/ul MPV (7.4-10.4) um3 Immature Gran % (Auto) (0-9) % Neut % (Auto) (38-83) % Lymph % (Auto) (25-47) % [place] % (Auto) (1-9) % Eos % (Auto) (0-6) % Baso % (Auto) (0-2) % Absolute Neuts (auto) (1.5-7.7) 10^3/ul Absolute Lymphs (auto) (1.0-4.8) 10^3/ul Absolute Monos (auto) (0-0.8) 10^3/ul Absolute Eos (auto) (0-0.6) 10^3/ul Absolute Basos (auto) (0-0.2) 10^3/ul Absolute Nucleated RBC 10^3/ul Neutrophils % (38-83) % Lymphocytes % (25-47) % Reactive Lymphs % (0-6) % Monocytes % (0-13) % Eosinophils % (0-6) % Myelocytes % (0-1) % Nucleated RBC % Normal RBC Morphology Hem Pathologist Commnt INR (Anticoag Therapy) 0.82 L (0.89-1.11) ABG pH 7.40 (7.35-7.45) ABG pCO2 25 L (35-45) mmHg ABG pO2 97 (80-100) mmHg ABG HCO3 19.2 (19-31) mmol/L ABG O2 Saturation 99.2 H (95-98) % ABG Base Excess -7.3 L (-2.0-2.0) Sodium (133-145) mmol/L Potassium (3.5-5.0) mmol/L Chloride (101-111) mmol/L Carbon Dioxide (22-32) mmol/L Anion Gap (2-11) mmol/L BUN (6-24) mg/dL Creatinine (0.51-0.95) mg/dL Est GFR ( Amer) (>60) Est GFR (Non-Af Amer) (>60) BUN/Creatinine Ratio (8-20) Glucose (70-100) mg/dL Lactic Acid (0.5-2.0) mmol/L Calcium (8.6-10.3) mg/dL Magnesium (1.9-2.7) mg/dL Total Bilirubin (0.2-1.0) mg/dL AST (13-39) U/L ALT (7-52) U/L Alkaline Phosphatase (34-104) U/L Ammonia 45 (16-53) mol/L Total Creatine Kinase (10-223) U/L Troponin I (<0.04) ng/mL Total Protein (6.4-8.9) g/dL Albumin (3.2-5.2) g/dL Globulin (2-4) g/dL Albumin/Globulin Ratio (1-3) TSH (0.34-5.60) mcIU/mL Salicylates (<30) mg/dL Acetaminophen mcg/mL Serum Alcohol (<10) mg/dL Result Diagrams: 03/08/17 05:00 03/08/17 05:00 Lab Statement: Any lab studies that have been ordered have been reviewed, and results considered in the medical decision making process. - Radiology CXR Radiology Interpretation Completed By: ED Physician - NAD - EKG 0558 Cardiac Rate: NL - BPM 89 EKG Rhythm: Sinus Rhythm EKG Interpretation: LVH. Nml AV IV conduction time. Nml QTc. Nml axis. Re-Evaluation - Re-Evaluation First Eval Re-Evaluation Time: 03:50 Change: Unchanged - pt remains combative and poorly cooperative, won't lie on stretcher, given Benadryl 50mg IV, Haldol 5mg IV and lorazepam 2mg IV. Second Eval Re-Evaluation Time: 04:20 Change: Unchanged - made aware of critical elevated salicylate level. Pt lying on stretcher, moving all extremites well, diaphoretic, resps tachypneic, 20's, but unlabored. Course/Dx - Course Assessment/Plan: LEVEL 5 CAVEAT DUE TO AMS. 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 Per EMS she consumed a full bottle. Symptoms aggravated and alleviated by nothing. EMS reports SI (I want to ), diarrhea, urinary incontinence, and vomiting. The patient reports ear ringing. EKG reveals NSR and LVH. CXR reveals NAD per ED physician. Consulted Dr. Wade (hospitalist) who agrees to admit. RAJAT Fernandez, spoke with Elizabeth in Poison Control in [place] and conveyed poison control recommendations to myself and Dr. Wade. - Diagnoses Differential Diagnosis/HQI/PQRI: Positive: Suicidal Risk, Other - intentional drug overdose Provider Diagnoses: Poisoning by salicylates, intentional self-harm, initial encounter - Physician Notifications Discussed Care Of Patient With: Shine Wade Time Discussed With Above Provider: 04:45 Instructed by Provider To: Other - Consulted Dr. Wade (hospitalist) who agrees to admit ICU. We reviewed poison control recommendations and uptodate regarding ASA overdose, and discussed bicarb administration with pharmacy. Dr. Wade was able to have pt drink her first dose of charcoal in the ED, 50gms. - Critical Care Time Critical Care Time: 30-74 min - 45mins Discharge - Discharge Plan Condition: Guarded Disposition: ADMITTED TO [facility] documentation as recorded by the Pao muhammad Alfonso accurately reflects the service I personally performed and the decisions made by me, Kenna Sandhu MD.
[2017-03-08 13:46] LABS: Venous Bicarbonate HCO3 23.9 mmol/L (24-28)
[2017-03-08] MEDS ORDERED: Dexmedetomidine* 200 MCG in NS 0.9% 50 ML* 48 ML IVPB SCH (14:10)
--- NOTE | 2017-03-08 14:25 | PN ---
Progress Note - Progress Note Date of Service: 03/08/17 Note: CRITICAL CARE MEDICINE Date: 03/08/17 Time: 1345 Working with pt throughout the day. tried metaneb, bipap and mild improvement in resp dynamics but still not participating with chavez altman, lack of cough, delirium ongoing. continues communication. resp alkalosis still evident. making urine well but still slow clearing salicylates. bicarb again to foster clearance today. not taking po. Will re-intubate and unfortunately just slower recovery. Question of concominate toxins and potential withdraws and has been receiving ativan. place on propofol gtt and give her more time. Disposition: ICU Code Status: Full Critical Care Time: additional 30min, excluding procedures. Lili Tony, DO
[2017-03-08] MEDS ORDERED: Propofol* 10 MG/ML 20 ML BTL IV PUSH ONE (14:34)
--- NOTE | 2017-03-08 14:41 | PN ---
Progress Note - Progress Note Date of Service: 03/08/17 Note: CRITICAL CARE MEDICINE PROCEDURE NOTE DATE: 03/08/17 TIME: 1435 SERVICE: Critical Care Medicine LOCATION OF PROCEDURE: ICU PROCEDURE: Endotracheal intubation PROCEDURALIST: Dr. Tony Consent obtain: No, procedure performed emergently Time out held: Not indicated INDICATION: Acute respiratory failure PROCEDURE: Oxygenation maintained and vitals monitored. Patient in supine position. Pre-medication with fentanyl 100mcg / propofol 50mg. Glidescope #3 inserted with Grade 1 view obtained. 8.0 endotracheal tube inserted to 22cm lip. Good chest rise with breath sounds appreciated in bilaterally lung virk. EtCO2 + color change. Portable chest x-ray pending. Patient otherwise tolerated well. Lili Tony, DO
[2017-03-08] MEDS ORDERED: Sodium Bicarbonate 8.4% IV* 50 ML VIAL ONE (14:52)
[2017-03-08] MEDS: Propofol* 100 ML IV SCH (14:53)
[2017-03-08] MEDS ORDERED: Sodium Bicarbonate 8.4% IV* 75 MEQ in NS 0.45% 1000 ML BAG* 1,000 ML IVPB ONE (15:00)
--- NOTE | 2017-03-08 15:33 | RAD ---
INDICATION: Status post reintubation. COMPARISON: Comparison is made with prior chest x-ray study from March 08, 2017 from approximately 4 hours earlier. TECHNIQUE: A portable view of the chest was obtained. FINDINGS: There is a nasogastric tube which demonstrates normal course. The catheter tip projects in the left upper quadrant. The patient is status post intubation. The endotracheal tube tip is just below the level of the clavicular heads. There is a central venous catheter entering from the right jugular approach. The tip projects over the right atrium. The heart is within normal limits in size. There is mild prominence of the interstitial markings and small bilateral pleural effusions with a more focal infiltrate at the right lung base. There is no significant change from the prior study. IMPRESSION: FINDINGS SUGGESTIVE OF CONGESTIVE HEART FAILURE LESS LIKELY PNEUMONIA, UNCHANGED.
[2017-03-08] MEDS: Chlorhexidine MOUTHWASH 0.12%* 15 ML UDC TOPICAL SCH ×2 (20:03→22:38)
[2017-03-09] MEDS: Chlorhexidine MOUTHWASH 0.12%* 15 ML UDC TOPICAL SCH ×6 (00:23→21:35)
[2017-03-09] MEDS: Propofol* 100 ML IV SCH ×3 (00:23→18:20)
[2017-03-09 05:45] LABS: Hematocrit 26 % (35-47); Hemoglobin 8.9 g/dl (12.0-16.0); Mean Corpuscular HGB Conc 34 g/dl (31-36); Mean Corpuscular Hemoglobin 29 pg (27-31); Mean Corpuscular Volume 86 fL (80-97); Mean Platelet Volume 7 um3 (7.4-10.4); Red Blood Count 3.05 10^6/ul (4.0-5.4); Red Cell Distribution Width 13 % (10.5-15); White Blood Count 7.9 10^3/ul (3.5-10.8)
[2017-03-09] MEDS: Heparin VIAL(*) 5000 UNITS/ML VIAL (FIVE THOUSAND) SUBCUT SCH ×3 (05:59→21:35)
[2017-03-09 06:01] LABS: Albumin 2.5 g/dL (3.2-5.2); BUN/Creatinine Ratio 15.3 (8-20); Calcium 7.2 mg/dL (8.6-10.3); Direct Bilirubin 0.1 mg/dL (0.03-0.18); EGFR African American 102.4 (>60); EGFR Non-African American 79.6 (>60); Globulin 1.9 g/dL (2-4); Indirect Bilirubin 0.2 mg/dL (0.3-1.0); Magnesium 1.9 mg/dL (1.9-2.7); Phosphorus 2.1 mg/dL (2.5-5.0); Potassium 3.6 mmol/L (3.5-5.0); Total Bilirubin 0.3 mg/dL (0.2-1.0); Total Protein 4.4 g/dL (6.4-8.9)
[2017-03-09] MEDS: D5W 1/2 NS KCl 20 Meq 1000 ML* 1,000 ML IV SCH (06:10)
[2017-03-09 06:20] LABS: Salicylate 12.3 mg/dL (<30)
[2017-03-09] MEDS ORDERED: Atropine SYRINGE* 0.1 MG/ML 10 ML SYRINGE (1 MG) ONE (07:34)
[2017-03-09] MEDS: Vitamin THERAPEUTIC TAB PO SCH (09:15)
[2017-03-09] MEDS ORDERED: Magnesium Sulfate 2 GM IV* 2 GM/50 ML BAG IVPB ONE (10:40)
[2017-03-09] MEDS ORDERED: NS 0.9% 250 ML* 250 ML ONE ×2 (10:59→11:04)
[2017-03-09] MEDS: Potassium Phosphate IV* 30 MMOLE in NS 0.9% 250 ML* 250 ML IVPB ONE ×2 (11:12→12:17)
--- NOTE | 2017-03-09 11:16 | PN ---
Progress Note - Progress Note Date of Service: 03/09/17 Note: CRITICAL CARE MEDICINE Date: 03/09/17 Time: 1030 SUBJECTIVE: Patient seen and examined. PHYSICAL EXAM: Vital Signs: Reviewed. HR 60s-100s. bp stable. antwon cpap Neurologic: awakens, follows commands, but delirium. HEENT: pupils equal and small 2mm reactive. Sclera anicteric. Trachea midline with ett in place Cardiovascular: S1 S2 distant; tele again with nsr and occasional sinus pauses, asymptomatic Respiratory: distant and dec bases R>L otherwise clear Abdomen: Soft, nt. Extremities: warm; dep edema in ext Access: RIJ intact; rausch LABS: Reviewed. IMAGING: Reviewed. MEDICATIONS: Reviewed. ASSESSMENT: 71 F Salicylate overdose with toxicity on admission with associated lactic acidosis suicidal intent metabolic encephalopathy psychological delirium acute resp failure, multifactorial with component of hypoxia denisa requiring HD 03/06, but continued recovery now PLAN: Neurologic: benzos prn. on low dose prop gtt. Cardiovascular: Intravascular vol fine and interstitial up. can dc ivf and allow her to mobilize. asym sinus pasuses associated with metabolic derangements with continued corrections. follow tele Respiratory: changed to cpap sbt. see how she can tolerate with better toxin clearance now. f/u any tbm concerns and pulm toliet needs. hopefully towards liberation tomorrow. Gastrointestinal: lfts coming down. inr ok. continued tf. sup Renal/Metabolic: correct metabolic derangments. uout f/u Infectious Disease: no infective burden. Hematology: stable post hydration. hsq Endocrine: can be off dextrose today and utilize tf. lax glucose control. Musculoskeletal: oob as able Psych/Social: psych eval pending improved medical dynamics. Supportive and preventative care as ordered. Vaccine: f/u outpt needs SUP: H2 VTE prophylaxis: heparin. Disposition: ICU Code Status: Full Critical Care Time: 35min Lili Tony DO
[2017-03-10] MEDS: Chlorhexidine MOUTHWASH 0.12%* 15 ML UDC TOPICAL SCH ×7 (04:58→23:48)
[2017-03-10] MEDS: Propofol* 100 ML IV SCH ×2 (04:59)
[2017-03-10] MEDS: Heparin VIAL(*) 5000 UNITS/ML VIAL (FIVE THOUSAND) SUBCUT SCH ×3 (05:15→21:40)
[2017-03-10 05:38] LABS: Hematocrit 28 % (35-47); Hemoglobin 9.6 g/dl (12.0-16.0); Mean Corpuscular HGB Conc 34 g/dl (31-36); Mean Corpuscular Hemoglobin 29 pg (27-31); Mean Corpuscular Volume 86 fL (80-97); Mean Platelet Volume 7 um3 (7.4-10.4); Red Blood Count 3.26 10^6/ul (4.0-5.4); Red Cell Distribution Width 14 % (10.5-15); White Blood Count 11.4 10^3/ul (3.5-10.8)
[2017-03-10 05:55] LABS: BUN/Creatinine Ratio 13.8 (8-20); Calcium 8.1 mg/dL (8.6-10.3); EGFR African American 115.2 (>60); EGFR Non-African American 89.6 (>60); Phosphorus 2.7 mg/dL (2.5-5.0); Potassium 3.9 mmol/L (3.5-5.0)
[2017-03-10] MEDS: Vitamin THERAPEUTIC TAB PO SCH (08:15)
--- NOTE | 2017-03-10 08:36 | RAD ---
HISTORY: Respiratory failure, bibasilar atelectasis, edema COMPARISONS: March 08, 2017 VIEWS: 1: frontal portable view of the chest at 6:30 AM FINDINGS: LINES AND TUBES: An endotracheal tube is noted with the tip overlying the trachea between the clavicles and the amber. A gastric tube is noted. The tip is below the [id number] of the current examination, but is below the diaphragm. A right internal jugular venous catheter is noted with tip overlying the cavoatrial junction. CARDIOMEDIASTINAL SILHOUETTE: The cardiomediastinal silhouette is normal for portable technique. PLEURA: There are small bilateral pleural effusions LUNG PARENCHYMA: There is a diffuse reticular pattern with indistinct pulmonary vessels. There is confluent alveolar opacification of the right lung base ABDOMEN: The upper abdomen is clear. There is no subphrenic gas. BONES AND SOFT TISSUES: No bone or soft tissue abnormalities are noted. IMPRESSION: 1. LINES AND TUBES ABOVE. 2. PULMONARY INTERSTITIAL EDEMA. 3. SMALL BILATERAL PLEURAL EFFUSIONS 4. BIBASILAR ATELECTASIS VERSUS CONSOLIDATION
[2017-03-10] MEDS ORDERED: Famotidine SUSP* 40 MG/5 ML ORAL.SUSP 50 ML BOTTLE G TUBE ONE (09:00)
[2017-03-10 09:07] LABS: FIO2 35
[2017-03-10] MEDS ORDERED: Alteplase* 100 MG in PREMIX* 100 ML IVPB ONE (09:10)
[2017-03-10 09:11] LABS: PCO2 Arterial 35 mmHg (35-45)
--- NOTE | 2017-03-10 11:24 | PN ---
Critical Care Services: [facility] progress note Date of service: 03/10/17 Pt seen and examined at bedside. Overnight events noted, chart reviewed. Pt remains intubated, not able to provide any history. Propofol being held in anticipation of extubation. Is agitated at times, trying to reach ETT, RN at bedside. Vital Signs: Temp Pulse Resp BP SpO2 FiO2 99.7 F 74 9 150/77 97 35 03/10/17 09:00 03/10/17 09:00 03/10/17 08:45 03/10/17 09:00 03/10/17 09:00 03/10 08:55 Physical Exam: Gen: Pt is intubated, opens eyes to verbal stimuli, not fully oriented HEENT:ETT in place Lungs: Good a/e b/l, no wheeze Cardiac: S1, S2+, regular Abdomen: Soft, BS+ Extremities: No edema Neuro: Limited due to intubated status, withdraws extremities spontaneously Fluid Balance (Past 24 Hours): I= 2770 Q=2498 Net -1629 Intake & Output 03/08/17 03/09/17 03/10/17 03/11/17 06:59 06:59 06:59 06:59 Intake Total 3212.3 3619.2 2770.7 111 Output Total 1720 2975 4400 Balance 1492.3 644.2 -1629.3 111 Weight 169 lb 12.095 oz 173 lb 11.588 oz 167 lb 15.876 oz Intake: IV Fluids 1885 1877.1 1187.9 D5W 1/2 NS 20 meq KCL 1870 1108 D5W LR 20 meq KCL 1479 NS to Maintain IV Patency 61 7.1 79.9 Normal Saline with 20 mEq 345 K IVPB 907 254 320 D5W 1/2 NS 20 meq KCL 254 D5W LR 20 meq KCL 460 NS to Maintain IV Patency 288 320 Normal Saline with 20 mEq 159 K Medicated IV 70.3 804.1 299.8 CC - Norepinephrine/ 70.3 Levophed CC - Propofol/Diprivan 136.1 299.8 Sodium Bicarbonate 668 Oral 350 0 Tube Feeding 684 963 111 NG Tube Irrigate Amount 0 Output: NG Tube Drainage Amount 200 Urine 500 650 Angelo 1020 2325 4400 Tube Feeding Residual 0 Amount Wasted Other: Estimated Void Medium Date of Last Bowel 03/06/17 Movement Labs: Laboratory Results - last 24 hr 03/09/17 03/10/17 03/10/17 12:55 05:20 05:20 WBC 11.4 H RBC 3.26 L Hgb 9.6 L Hct 28 L MCV 86 MCH 29 MCHC 34 RDW 14 Plt Count 145 L MPV 7 L Neut % (Auto) 83.2 H Lymph % (Auto) 9.7 L [place] % (Auto) 5.9 Eos % (Auto) 0.8 Baso % (Auto) 0.4 Absolute Neuts (auto) 9.5 H Absolute Lymphs (auto) 1.1 Absolute Monos (auto) 0.7 Absolute Eos (auto) 0.1 Absolute Basos (auto) 0 Absolute Nucleated RBC 0 Nucleated RBC % 0 Patient Temperature ABG pH ABG pH (Temp Correct) ABG pCO2 ABG pCO2 (Temp Corrct ABG pO2 ABG pO2 (Temp Correct ABG HCO3 ABG O2 Saturation ABG Base Excess Respiration Rate O2 Delivery Device Ventilator Type Vent Mode FiO2 Inspiratory Time PEEP Pressure Support Pressure Control EPAP IPAP BiPAP Sodium 139 Potassium 3.9 Chloride 108 Carbon Dioxide 27 Anion Gap 4 BUN 9 Creatinine 0.65 Est GFR ( Amer) 115.2 Est GFR (Non-Af Amer) 89.6 BUN/Creatinine Ratio 13.8 Glucose 118 H POC Glucose (mg/dL) 158 H Calcium 8.1 L Phosphorus 2.7 Magnesium 2.0 03/10/17 08:55 WBC RBC Hgb Hct MCV MCH MCHC RDW Plt Count MPV Neut % (Auto) Lymph % (Auto) [place] % (Auto) Eos % (Auto) Baso % (Auto) Absolute Neuts (auto) Absolute Lymphs (auto) Absolute Monos (auto) Absolute Eos (auto) Absolute Basos (auto) Absolute Nucleated RBC Nucleated RBC % Patient Temperature Not Reportable ABG pH 7.49 H ABG pH (Temp Correct) Not Reportable ABG pCO2 35 ABG pCO2 (Temp Corrct Not Reportable ABG pO2 89 ABG pO2 (Temp Correct Not Reportable ABG HCO3 27.5 ABG O2 Saturation 98.7 H ABG Base Excess 3.3 H Respiration Rate Not Reportable O2 Delivery Device Vent Ventilator Type Not Reportable Vent Mode Spon FiO2 35 Inspiratory Time Not Reportable PEEP Not Reportable Pressure Support Not Reportable Pressure Control Not Reportable EPAP Not Reportable IPAP Not Reportable BiPAP Not Reportable Sodium Potassium Chloride Carbon Dioxide Anion Gap BUN Creatinine Est GFR ( Amer) Est GFR (Non-Af Amer) BUN/Creatinine Ratio Glucose POC Glucose (mg/dL) Calcium Phosphorus Magnesium Nutrition: Tube feeds held in anticipation of extubation Impression: 71 y o F with Salicylate overdose with toxicity with suicidal intention 1. Salicylate toxicity with lactic acidosis 2. Suicidal intent 3. Metabolic encephalopathy requiring intubation for airway protection 4.Acute resp failure, on vent support 5. [place] requiring HD 03/06, but continued recovery now, good urine output with negative fluid balance Plan: 1. Neurologic: Remians intubated, propofol held in anticipation of extubation when mental status is improved. c/w benzos prn 2. Cardiovascular: Hemodynamically stable, hold IVF. Is in negative fluid balance 3. Respiratory: On cpap with pressure support, pulling good tidal volumes. Resp dynamics favorable for extubation. Plan for extubation today when mental status improves. Might have tbm, would assess need for bronchoscopy for pulm toliet prior to extubation. CXR reviewed, evidence of basal atelectasis, small b/l effusions. ABG showed resp alkalosis. 4. Gastrointestinal: Lfts coming down, inr ok. Tube feeds on hold for possible extuabtion, will restart if no extubation today 5. Renal/Metabolic: No electrolyte abnormalities. Good urine output noted 6. Infectious Disease: No infective burden, had low grade fever today. 7. Hematology:Anemia, thrombocytopenia, likely dilutional, donot suspect HIT, will monitor closely 8. Endocrine: Monitor bl sugars closely 9. Musculoskeletal: Bed rest given intubated status and delirium 10. Psych/Social: Psych eval pending improved medical dynamics. Pt `s sister was at bedside earlier, pt was more alert and apparently was indicating that she wanted to . Might need inpt psych when medically stable Supportive and preventative care as ordered. Vaccine: f/u outpt needs SUP: H2 VTE prophylaxis: heparin. Disposition: ICU Code Status: Full Critical Care Time: 40 min
[2017-03-10] MEDS: LORazepam INJ* 2 MG/ML 1 ML VIAL IV PUSH PRN ×3 (12:59→21:04)
[2017-03-10] MEDS ORDERED: EPINEPHrine,Rac 2.25% NEB.SOL* 0.5 ML ONE (13:06)
[2017-03-10] MEDS ORDERED: methylPREDNISolone 125 MG* 2 ML VIAL ONE (13:09)
[2017-03-10] MEDS ORDERED: Albuterol/Ipratropium NEB.SOL* Albuterol 2.5 MG/Ipratropium 0.5 MG 3 ML ONE (13:19)
[2017-03-10] MEDS: EPINEPHrine,Rac 2.25% NEB.SOL* 0.5 ML ONE ×2 (13:22→13:25)
[2017-03-10] MEDS: Albuterol 2.5 MG/3 ML NEB.SOL* (0.083%) ONE ×2 (13:23→13:25)
[2017-03-10] MEDS ORDERED: Morphine INJ* 4 MG/ML 1 ML CARPUJECT IM ONE (13:32)
[2017-03-10] MEDS: Morphine INJ* 2 MG/ML 1 ML SYRINGE (TWO MG - NEW SYRINGE VERSION) ONE ×2 (13:54→14:08)
[2017-03-10] MEDS: Budesonide NEB* 0.5 MG/2 ML NEB.SOLN INH SCH ×2 (14:27→19:38)
[2017-03-10] MEDS ORDERED: Morphine INJ* 2 MG/ML 1 ML SYRINGE (TWO MG - NEW SYRINGE VERSION) IV ONE (14:30)
--- NOTE | 2017-03-10 14:39 | PN ---
Progress Note - Progress Note Date of Service: 03/10/17 - [facility] update Note: Pt met criteria for extubation this am, was extubated to nasal cannula. Pt was taking and was not in any distress post extubation. She asked if we were trying to kill her. 20-30 min post extubation, pt appeared in distress, stridor noted. Pt was given racemic epinephrine nebs x2, 125mg Solumedrol, ranitidine, duonebx2. Pt was transitioned to high flow. She also received 2mg Morphinex2 and Ativan 1 mg post extubation. Stridor improved with intervention. She is less restless, opens eyes to verbal stimuli. Low threshold for intubation if she doesnot improve. Will c/w nebs, racemic epi as needed. Will dose Solumedrol again in 12 hrs. Will continue to monitor closely. Sister and son were updated
[2017-03-10] MEDS: Albuterol/Ipratropium NEB.SOL* Albuterol 2.5 MG/Ipratropium 0.5 MG 3 ML INH PRN ×3 (18:21→23:11)
[2017-03-10] MEDS: EPINEPHrine,Rac 2.25% NEB.SOL* 0.5 ML INH PRN ×3 (18:22→23:12)
[2017-03-10] MEDS: Haloperidol INJ IV/IM* 5 MG/ML AMP IV SLOW PU PRN ×2 (19:29→23:49)
[2017-03-10] MEDS: Albuterol 2.5 MG/3 ML NEB.SOL* (0.083%) INH PRN (21:40)
[2017-03-10] MEDS ORDERED: Morphine INJ* 4 MG/ML 1 ML CARPUJECT ONE (22:21)
--- NOTE | 2017-03-10 22:43 | PN ---
Progress Note - Progress Note Date of Service: 03/10/17 Note: Nursing & RT called reporting recurrent stridor w/ mild desaturation and increased work of breathing. Ordered racemic epinephrine X2 & morphine 4mg IV X1 with good result. Continue to monitor closely.
[2017-03-10] MEDS ORDERED: Morphine INJ* 4 MG/ML 1 ML CARPUJECT IV ONE (23:00)
[2017-03-11] MEDS: Chlorhexidine MOUTHWASH 0.12%* 15 ML UDC TOPICAL SCH ×5 (03:13→22:19)
[2017-03-11] MEDS: LORazepam INJ* 2 MG/ML 1 ML VIAL IV PUSH PRN ×3 (03:13→12:22)
[2017-03-11] MEDS: Albuterol/Ipratropium NEB.SOL* Albuterol 2.5 MG/Ipratropium 0.5 MG 3 ML INH PRN ×3 (04:13→23:46)
[2017-03-11] MEDS: Heparin VIAL(*) 5000 UNITS/ML VIAL (FIVE THOUSAND) SUBCUT SCH ×3 (04:58→22:19)
[2017-03-11] MEDS: Morphine INJ* 4 MG/ML 1 ML CARPUJECT IV PRN ×3 (04:58→18:13)
[2017-03-11] MEDS: Haloperidol INJ IV/IM* 5 MG/ML AMP IV SLOW PU PRN (06:18)
[2017-03-11] MEDS: Vitamin THERAPEUTIC TAB PO SCH (09:06)
[2017-03-11] MEDS: Budesonide NEB* 0.5 MG/2 ML NEB.SOLN INH SCH ×2 (10:16→20:10)
[2017-03-11] MEDS: Levofloxacin 500 MG IVPREMIX(* 500 MG/100 ML BAG IVPB SCH (11:35)
--- NOTE | 2017-03-11 12:51 | PN ---
Critical Care Services: [facility] progress note Date of service: 03/11/17 Pt seen and examined at bedside. Overnight events noted Pt was extubated 03/10/17, developed stridor and had worsening hypoxia post extubation, responded to racemic epinephrine and duonebs, had issues o/n received 2 racemic epi and Morphine with improvement, not following commands yet , receiving haldol, prn Ativan for agitation. Vital Signs: Temp Pulse Resp BP SpO2 FiO2 99.5 F 65 23 133/81 97 100 03/11/17 12:00 03/11/17 12:00 03/11/17 12:22 03/11/17 12:00 03/11/17 12:00 03/11 12:00 Physical Exam: Gen: Pt is aggitated at times, opens eyes to verbal stimuli, not following commands HEENT: PERRLA, mucus mem moist, no scleral icterus Lungs:Good a/e b/l, decreased at bases, prolonged exp phase, no wheeze this am Cardiac: S1, S2+, regular Abdomen:Soft, BS+ Extremities:No edema, moves all 4 extremities spontaneously Neuro: Delirious, mumbles, non-communicative Fluid Balance (Past 24 Hours): I= 515 O= 3950 Net -3434 Intake & Output 03/09/17 03/10/17 03/11/17 03/12/17 06:59 06:59 06:59 06:59 Intake Total 3619.2 2770.7 515.6 Output Total 2975 4400 3950 Balance 644.2 -1629.3 -3434.4 Weight 173 lb 11.588 oz 167 lb 15.876 oz 154 lb 5.177 oz Intake: IV Fluids 1877.1 1187.9 348 D5W 1/2 NS 20 meq KCL 1870 1108 NS to Maintain IV Patency 7.1 79.9 348 IVPB 254 320 D5W 1/2 NS 20 meq KCL 254 NS to Maintain IV Patency 320 Medicated IV 804.1 299.8 56.6 CC - Propofol/Diprivan 136.1 299.8 56.6 Sodium Bicarbonate 668 Oral 0 0 Tube Feeding 684 963 111 NG Tube Irrigate Amount 0 Output: Urine 650 Angelo 2325 4400 3950 Tube Feeding Residual 0 Amount Wasted Other: Estimated Void Medium Date of Last Bowel 03/06/17 Movement Labs: No new labs, no electrlyte abnormalities noted on 03/10/17 Studies: CXR: 03/10/17- Possible bibasilar atelectasis, possible interstitial congestion and small b/l effusions Nutrition: Unable to start po yet due to resp status and delirium, will initiate tube feeds if condition doesnot improve Impression: 71 y o F with Salicylate overdose with toxicity with suicidal intention 1. Salicylate toxicity with lactic acidosis, resolved, not following levels anymore 2. Suicidal intent, will need psych when medically stable 3. Metabolic encephalopathy requiring intubation for airway protection s/p extubation 03/10/17 4.Acute resp failure, requiring vent support has issues with stridor post extubation, improved today however still needing high FiO2 5. AKHIL required HD 03/06, but continued recovery now, good urine output with negative fluid balance Plan: 1. Neurologic: Extubated 03/10/17 after having to be intubated twice this admission with post extubation stridor and wheeze, responded to conservative management with racemic epi, Morphine, Duoneb. Trying to avoid re-intubation as much as possible to be able to transition to psych floor to manage underlying severe depression with resulting in suicide attempt. c/w benzos prn. Mental status not completely improved. Was communicative post extubation yesterday, periods of agitation and needing 1:1 observation to be able to continue medical therapy uninterrupted since extubation 2. Cardiovascular: Hemodynamically stable, will start IVF at low rate given NPO status and diuretic phase of ATN. Is in negative fluid balance 3. Respiratory: On vapotherm and humidified mist given stridor and bronchospasm , resp status much improved today. O2 sats improved, high flow helping, will start taper of FiO2, c/w Duoneb q 2-4 hrs. Might have TBM. CXR, evidence of basal atelectasis, small b/l effusions. Hopefully high flow would help recruite atelectatic lung 4. Gastrointestinal: LFTs coming down, inr ok. Feeds on hold given AMS and possible need for reintubation, will c/w IVF, will reassess and might consider tube feeds 5. Renal/Metabolic: No electrolyte abnormalities. Good urine output noted, likely in diuretic phase of ATN, will support with IVF 6. Infectious Disease: Had low grade fevers , mild bump in WBC count, will send septic w/u and cover emperically for PNA . 7. Hematology:Anemia, thrombocytopenia, likely dilutional, donot suspect HIT, will monitor closely 8. Endocrine: Monitor bl sugars closely given NPO status 9. Musculoskeletal: Bed rest given intubated status and delirium, has been agitated at times, no restrains for now 10. Psych/Social: Psych eval pending improved medical dynamics. Pt still expressing depressive state and suicidal ideation to her sister. Is on 1:1 observation. c/w Haldol and Ativan prn Supportive and preventative care as ordered. Vaccine: f/u outpt needs SUP: H2 VTE prophylaxis: Heparin. Disposition: ICU Code Status: Full Critical Care Time: 35 min
[2017-03-11] MEDS: NS 0.9% 1000 ML* 1,000 ML IV SCH (13:23)
[2017-03-11] MEDS: EPINEPHrine,Rac 2.25% NEB.SOL* 0.5 ML INH PRN (20:28)
[2017-03-11 21:06] LABS: FIO2 100
[2017-03-11 21:09] LABS: PCO2 Arterial 37 mmHg (35-45)
[2017-03-12] MEDS: Chlorhexidine MOUTHWASH 0.12%* 15 ML UDC TOPICAL SCH ×4 (00:25→14:37)
[2017-03-12] MEDS: NS 0.9% 1000 ML* 1,000 ML IV SCH ×2 (05:38→13:52)
[2017-03-12] MEDS: Heparin VIAL(*) 5000 UNITS/ML VIAL (FIVE THOUSAND) SUBCUT SCH ×3 (05:39→21:45)
[2017-03-12] MEDS ORDERED: Iohexol 350* (CONTRAST) 500 ML MDV IV ONE (08:21)
--- NOTE | 2017-03-12 09:04 | RAD ---
INDICATION: Chest pain. Short of breath. Pulmonary interstitial edema/effusions. Evaluate for pulmonary embolus. COMPARISON: Chest x-ray March 10, 2017 TECHNIQUE: Axial source images were obtained from the thoracic inlet to the hemidiaphragms following administration of [address] angiographic technique was utilized. Coronal and sagittal reconstructed images were acquired. CHEST FINDINGS: Neck/thyroid: The visualized neck to include the thyroid appear normal. Chest wall: There are no acute abnormalities of the bony thorax or chest wall. There is no supraclavicular, infraclavicular, or axillary lymphadenopathy. Lungs : There are extensive, predominantly basilar consolidative changes. The pulmonary interstitium appears prominent. There are no endobronchial lesions. Cardiomediastinal structures: There is no CT evidence of acute pulmonary embolic disease. The heart is normal in size. There is a small pericardial effusion. There is no evidence of aortic aneurysm or dissection. There is no mediastinal or hilar adenopathy. The esophagus appears normal. Pleura : Moderate to large bilateral pleural effusions. Other: None. IMPRESSION: NO CT EVIDENCE OF ACUTE PULMONARY EMBOLIC DISEASE. PULMONARY INTERSTITIAL AND ALVEOLAR EDEMA WITH EXTENSIVE CONSOLIDATIVE CHANGES AND MODERATE TO LARGE BILATERAL PLEURAL EFFUSIONS.
[2017-03-12] MEDS ORDERED: Furosemide IV* 10 MG/ML VIAL (40 MG) IV ONE (09:17)
[2017-03-12] MEDS: Vitamin THERAPEUTIC TAB PO SCH (09:33)
[2017-03-12] MEDS: Levofloxacin 500 MG IVPREMIX(* 500 MG/100 ML BAG IVPB SCH (10:10)
[2017-03-12] MEDS: Budesonide NEB* 0.5 MG/2 ML NEB.SOLN INH SCH ×2 (10:29→19:39)
[2017-03-12] MEDS: Albuterol/Ipratropium NEB.SOL* Albuterol 2.5 MG/Ipratropium 0.5 MG 3 ML INH PRN ×3 (10:30→19:39)
[2017-03-12] MEDS ORDERED: Flumazenil* 0.1 MG/ML 5 ML MDV ONE (11:00)
[2017-03-12] MEDS ORDERED: Naloxone* 0.4 MG/ML 1 ML VIAL ONE (11:01)
[2017-03-12] MEDS: LORazepam INJ* 2 MG/ML 1 ML VIAL IV PUSH PRN (11:14)
--- NOTE | 2017-03-12 11:20 | ECHO ---
Patient: CANDY JUDD Rec#: [id number] : 1945 Date: 03/12/2017 Age: 71y Height: 167.6 cm / 66.0 in Weight: 69.9 kg / 154.1 lbs Sex: F BSA: 1.8 Room#: ICU 5 Admit Date#: 03/06/2017 Type: Inpatient Referring: TAMMIE ALTAMIRANO Reading: Ambrocio James MD [employer] Tester: Mayra Michelle RN RDCS CC: Seth Gama MD Transthoracic Echocardiogram Indication: Hypoxia BP: 134/79 HR: 78 Rhythm: NSR Findings History: Anxiety, personality disorder, former smoker, admitted with aspirin overdose and respiratory failure. Technical Comments: The study quality is fair. The study is technically limited due to the patient's smoking history. Completed at 1035. Left Ventricle: The left ventricular chamber size is normal. There are multiple regional wall motion abnormalities. There is severely decreased left ventricular systolic function. The estimated ejection fraction is 25-30%. The assessment of diastolic function is non-diagnostic. The patient was unable to perform a Valsalva maneuver. Left Atrium: The left atrial chamber size is normal. Right Ventricle: The right ventricular cavity size is normal. The right ventricular global systolic function is normal. Right Atrium: The right atrial cavity size is normal. Aortic Valve: The aortic valve is trileaflet. The aortic valve leaflets are mildly thickened. There is a trace of aortic regurgitation. There is no evidence of aortic stenosis. Mitral Valve: The mitral valve leaflets are mildly thickened. There is mild mitral regurgitation. There is no evidence of mitral stenosis. Tricuspid Valve: The tricuspid valve leaflets are normal. There is mild tricuspid regurgitation. Unable to estimate the right ventricular systolic pressure. There is no tricuspid stenosis. Pulmonic Valve: The pulmonic valve appears normal. There is trace to mild pulmonic regurgitation. There is no pulmonic stenosis. Pericardium: There is no significant pericardial effusion. A pericardial fat pad is visualized. A left pleural effusion is present. Aorta: There is no dilatation of the ascending aorta. The aortic arch is not well visualized. There is no dilation of the aortic root. Pulmonary Artery: The main pulmonary artery is not well visualized. Venous: The inferior vena cava appears normal in size. There is less than 50% respiratory change in the inferior vena cava dimension. Summary: There are changes noted when compared to the previous study done on 08/24/2016, LV EF now is reduced to 25-30% instead of normal at 55-60% then. Conclusions There are multiple regional wall motion abnormalities. There is severely decreased left ventricular systolic function. The estimated ejection fraction is 25-30%, posterior wall and apex are the best preserved. The assessment of diastolic function is non-diagnostic. There is a trace of aortic regurgitation. There is mild mitral regurgitation. There is mild tricuspid regurgitation. Unable to estimate the right ventricular systolic pressure. There is trace to mild pulmonic regurgitation. There are changes noted when compared to the previous study done on 08/24/2016, LV EF now is reduced to 25-30% instead of normal at 55-60% then. Measurements Name Value Normal Range RVIDd (AP) 2D 2.7 cm (0.9 - 2.6) RVDdMajor (2D) 3.5 cm (2.2 - 4.4) RAd ISD 4CH 4.4 cm (3.4 - 4.9) RA (A4C)W 4.2 cm (2.9 - 4.6) IVSd (2D) 0.8 cm (0.6 - 1) LVPWd (2D) 0.8 cm (0.6 - 1) LVIDd (2D) 4.7 cm (3.6 - 5.4) LVIDs (2D) 4.2 cm - LV FS (2D) 11 % (25 - 45) Aortic Annulus 1.9 cm (1.4 - 2.6) Ascending Ao 3.2 cm (2.1 - 3.4) LA dimension (AP) 2D 3.9 cm (2.3 - 3.8) LAd ISD 4CH 5.2 cm (2.9 - 5.3) LA ISD 4CH W 3.6 cm (2.5 - 4.5) Name Value Normal Range LA ESV SP 4CH (A/L) 42.9 ml - LA ESV SP 2CH (A/L) 52.4 ml - LA ESV BP (A/L) 48.7 ml - LA ESV BP (A/L) index 27.2 ml/m2 - LA ESV SP 4CH (MOD) 40 ml - LA ESV SP 2CH (MOD) 50.6 ml - Name Value Normal Range MV E-wave Vmax 0.83 m/sec - MV deceleration time 166 msec - MV A-wave Vmax 0.55 m/sec - MV E:A ratio 1.5 ratio - LV septal e' Vmax 0.07 m/sec - LV lateral e' Vmax 0.12 m/sec - LV E:e' septal ratio 11.9 ratio - LV E:e' lateral ratio 6.9 ratio - Name Value Normal Range AV Vmax 1.1 m/sec - AV VTI 23.1 cm - AV peak gradient 4.8 mmHg - AV mean gradient 2.8 mmHg - LVOT Vmax 0.95 m/sec - LVOT VTI 17 cm - LVOT peak gradient 3.6 mmHg - LVOT mean gradient 1.6 mmHg - Name Value Normal Range IVC diameter 1.9 cm - Name Value Normal Range PV Vmax 0.67 m/sec -
[2017-03-12 12:24] LABS: Body Fluid WBC 228 /mcL
[2017-03-12 12:25] LABS: Body Fluid Appearance Cloudy
--- NOTE | 2017-03-12 12:40 | RAD ---
Indication: Status post thoracentesis with right pleural effusion. Single frontal view of the chest performed at 1220 hours was reviewed. Comparison is made with previous exam dated March 10, 2017. Cardiomegaly is noted. Interstitial edema with right pleural effusion is noted. Interstitial edema appears to be similar to that seen on March 10, 2017. IMPRESSION: CARDIOMEGALY WITH PERSISTENT INTERSTITIAL EDEMA AND BILATERAL PLEURAL EFFUSIONS. NO PNEUMOTHORAX IS NOTED AFTER THORACENTESIS.
[2017-03-12 13:10] LABS: Body Fluid Total Cells Counted 100
--- NOTE | 2017-03-12 13:46 | RAD ---
Indication: Pulmonary embolus Duplex Doppler sonography of the deep venous system of both lower extremities was performed. Bilaterally the common femoral veins, proximal greater saphenous veins, proximal deep femoral veins, femoral veins, popliteal veins, posterior tibial veins and peroneal veins appear patent and compressible. Fluid in the right popliteal fossa consistent with right popliteal cyst measuring 2.2 x 0.5 x 1.4 cm. IMPRESSION: NO EVIDENCE OF DEEP VENOUS THROMBOSIS OF EITHER LOWER EXTREMITY IS PRESENT.
--- NOTE | 2017-03-12 14:51 | PN ---
Critical Care Services: [facility] progress note Date of service: 03/12/17 Pt seen and examined at bedside. Overnight events noted. Had episode of desaturation last night that responded to Morphine, Nebs. More alert today, was communicative with her sister this morning, still confused. Pt was extubated 03/10/17, had post extubation stridor that resolved responded to racemic epinephrine and duonebs. Vital Signs: Temp Pulse Resp BP SpO2 FiO2 100.2 F 78 26 127/70 98 70 03/12/17 14:01 03/12/17 14:01 03/12/17 14:01 03/12/17 14:01 03/12/17 14:01 03/12 12:00 Physical Exam: Gen: Pt is alert, awake, confused, oriented x1 HEENT: PERRLA, mucus mem moist, no scleral icterus Lungs:Good a/e b/l, decreased at bases, R>L, prolonged exhalation Cardiac: S1, S2+, regular Abdomen:Soft, BS+, ND Extremities:No edema, moves all 4 extremities spontaneously Neuro: Delirious, talks in low voice Fluid Balance (Past 24 Hours): I= 476 O= 3975 Net -3499 Intake & Output 03/10/17 03/11/17 03/12/17 03/13/17 06:59 06:59 06:59 06:59 Intake Total 2770.7 515.6 1414 476 Output Total 4400 3950 1225 3975 Balance -1629.3 -3434.4 189 -3499 Weight 167 lb 15.876 oz 154 lb 5.177 oz 154 lb 12.232 oz 154 lb Intake: IV Fluids 1187.9 348 1299 370 D5W 1/2 NS 20 meq KCL 1108 NS (0.9%) 1299 370 NS to Maintain IV Patency 79.9 348 IVPB 320 115 106 NS (0.9%) 115 106 NS to Maintain IV Patency 320 Medicated IV 299.8 56.6 CC - Propofol/Diprivan 299.8 56.6 Oral 0 0 Tube Feeding 963 111 Output: Angelo 4400 3950 1225 3275 Other 700 Other: Other Amount Description thorocentesis drainage, Right chest Labs: Laboratory Results - last 24 hr 03/11/17 03/12/17 21:00 11:41 Patient Temperature Not Reportable ABG pH 7.45 ABG pH (Temp Correct) Not Reportable ABG pCO2 37 ABG pCO2 (Temp Corrct Not Reportable ABG pO2 69 L ABG pO2 (Temp Correct Not Reportable ABG HCO3 26.2 ABG O2 Saturation 97.4 ABG Base Excess 1.7 Respiration Rate Not Reportable O2 Delivery Device vapo Ventilator Type Not Reportable Vent Mode Not Reportable FiO2 100 Inspiratory Time Not Reportable PEEP Not Reportable Pressure Support Not Reportable Pressure Control Not Reportable EPAP Not Reportable IPAP Not Reportable BiPAP Not Reportable Fluid Source Pleural fluid Fluid Volume 7 Fluid Color Yellow Fluid Appearance Cloudy Fluid WBC 228 Fluid RBC 1667 Fluid Tot Cell Count 100 Fluid Neutrophils 67 Fluid Lymphocytes 16 Fluid Monocytes 17 Fluid Other Cells 15 Studies: CTA; No PE, Large rt effusion and small to moderate lt effusion with associated atelectasis Echo: Significant drop in EF to 25% from 55-60% Nutrition: Bed side swallow eval, Will attempt thick liquids today and advance as tolerated Impression: 71 y o F with Salicylate overdose with toxicity with suicidal intention 1. Salicylate toxicity with lactic acidosis, resolved, not following levels anymore 2. Suicidal intent, will need psych when medically stable 3. Stunned myocardium with depressed systolic function sec to hypoxia 4. Metabolic encephalopathy requiring intubation for airway protection s/p extubation 03/10/17 5.Acute resp failure, still needing high FiO2 likely sec to large b/l effusions likely sec to systolic heart failure 6. AKHIL required HD 03/06, but continued recovery now, good urine output with negative fluid balance, likely diuretic phase of ATN 7. AMS likely sec to metabolic encephalopathy, meds, ? hypoxic encephalopathy Plan: 1. Neurologic: Extubated 03/10/17 after having to be intubated twice this admission with post extubation stridor and wheeze, responded to conservative management with racemic epi, Morphine, Duoneb. Trying to avoid re-intubation as much as possible to be able to transition to psych floor to manage underlying severe depression with resulting in suicide attempt. c/w benzos prn, will limit use. Mental status not completely improved. Less aggitated today 2. Cardiovascular: Hemodynamically stable, will d/c IVF. Is in negative fluid balance. ECHO showed significant drop in EF likely sec to stunned myocardium due to hypoxia. Will c/w Lasix as needed, will start betablockers if BP permits. Had issues with bradycardia attributed to propofol. 3. Respiratory: On high flow to be tapered as tolerated, S/p thoracentesis on rt with removal of 700 ml of dark yellow fluid, fluid charecteristics pending, c /w Duoneb q 4 hrs. Might have TBM. Hopefully high flow would help recruite atelectatic lung. Good urine out put with Lasix 4. Gastrointestinal: Feeds to be started today after bedside swallow eval, d/c IVF 5. Renal/Metabolic: No electrolyte abnormalities. Good urine output noted, likely in diuretic phase of ATN, will hold IVF and monitor renal function 6. Infectious Disease: Having low grade fevers , mild bump in WBC count,septic w /u was sent, covering emperically for PNA . 7. Hematology:Anemia, thrombocytopenia, likely dilutional, donot suspect HIT, will monitor closely 8. Endocrine: Monitor bl sugars closely 9. Musculoskeletal: Bed rest given delirium 10. Psych/Social: Psych eval pending improved medical dynamics. Pt still expressing depressive state and suicidal ideation to her sister. Is on 1:1 observation. c/w Haldol and Ativan prn Supportive and preventative care as ordered. Vaccine: f/u outpt needs SUP: H2 VTE prophylaxis: Heparin. Disposition: ICU Code Status: Full IV access: Rt IJ Will consider removing after obtaining peripheral access Critical Care Time: 40 min excluding procedures
[2017-03-12] MEDS ORDERED: Acetaminophen TAB* 325 MG PO ONE (15:16)
[2017-03-12 16:01] LABS: Hematocrit 34 % (35-47); Hemoglobin 11.3 g/dl (12.0-16.0); Mean Corpuscular HGB Conc 33 g/dl (31-36); Mean Corpuscular Hemoglobin 28 pg (27-31); Mean Corpuscular Volume 85 fL (80-97); Mean Platelet Volume 7 um3 (7.4-10.4); Red Blood Count 3.98 10^6/ul (4.0-5.4); Red Cell Distribution Width 13 % (10.5-15); White Blood Count 12.5 10^3/ul (3.5-10.8)
[2017-03-12 16:04] LABS: Add Diff/Slide Review? Slide Review Added; Comments Flag Yes
[2017-03-12 16:17] LABS: BUN/Creatinine Ratio 27.1 (8-20); Calcium 8.5 mg/dL (8.6-10.3); EGFR African American 128.9 (>60); EGFR Non-African American 100.2 (>60); Magnesium 1.6 mg/dL (1.9-2.7); Potassium 2.8 mmol/L (3.5-5.0)
[2017-03-12] MEDS ORDERED: Magnesium Sulfate 2 GM IV* 2 GM/50 ML BAG IVPB ONE (16:35)
[2017-03-12] MEDS: KCL 20 MEQ/100 ML IVPREMIX* 20 MEQ/100 ML BAG IV SCH ×2 (16:51→17:48)
[2017-03-12] MEDS ORDERED: Metoprolol Tartrate IV* 1 MG/ML 5 ML VIAL IV PRN (17:16)
[2017-03-12] MEDS ORDERED: Metoprolol Tartrate IV* 1 MG/ML 5 ML VIAL ONE (17:17)
[2017-03-12 17:18] LABS: Immature Granulocytes 18 % (0-9); Neutrophil % 58 % (38-83); RBC Morphology Normal (Normal)
[2017-03-12] MEDS ORDERED: Diltiazem DRIP* 100 MG/100 ML ADDV.BAG IVPB SCH (17:30)
--- NOTE | 2017-03-13 00:12 | PRO ---
THORACENTESIS REPORT: DATE OF PROCEDURE: 03/12/17 - ROOM #ICU-05 Procedure performed by: Dr. Jeffries PROCEDURE PERFORMED: Ultrasound-guided thoracentesis on the right side. INDICATION FOR THE PROCEDURE: [id number] size right pleural effusion, hypoxemia, respiratory distress. PREPROCEDURAL DIAGNOSIS: Pizwgtwg-[id number] right pleural effusion. ANESTHESIA: Local anesthesia with 5 mL of 1% lidocaine. PROCEDURE IN DETAIL: Informed consent was obtained from patient's sister, who is her healthcare proxy. The patient with confusion and was not able to provide consent for herself. The patient with significant respiratory distress and hypoxemic respiratory failure found to have large bilateral pleural effusions, larger on the right. Appropriate time-out was performed and agreed by attending staff prior to the procedure. The patient was sitting up, leaning forward during the procedure. A portable ultrasound in ICU was utilized at bedside to eleazar the space. A [employer]usion 8-Mauritian thoracentesis catheter was utilized. Strict aseptic and barrier precautions were followed. Area was cleaned with chlorhexidine. Drape was placed to cover the back and keep the area sterile. 1% lidocaine then was instilled intradermally subcutaneously down into the pleural space taking precautions. A 8-Mauritian thoracentesis catheter was then inserted under manual suction. A #11 scalpel blade was used to make stab incision. The catheter was left in place and needle was removed. Dark yellow fluid was aspirated under manual suction. 700 mL of fluid was removed, no more fluid was drained even with positioning of the patient. Catheter was then removed. The patient was monitored closely during the procedure and after the procedure. The patient remained stable. Fluid was sent into the lab for biochemical and hematological examination. A postprocedure chest x-ray was ordered and is pending at this time. [id number]/CPS #: [id number] MTDD
[2017-03-13 04:30] LABS: Hematocrit 32 % (35-47); Hemoglobin 10.7 g/dl (12.0-16.0); Mean Corpuscular HGB Conc 34 g/dl (31-36); Mean Corpuscular Hemoglobin 29 pg (27-31); Mean Corpuscular Volume 86 fL (80-97); Mean Platelet Volume 7 um3 (7.4-10.4); Red Blood Count 3.71 10^6/ul (4.0-5.4); Red Cell Distribution Width 14 % (10.5-15); White Blood Count 9.2 10^3/ul (3.5-10.8)
[2017-03-13 04:32] LABS: Add Diff/Slide Review? Slide Review Added; Comments Flag Yes
[2017-03-13 04:43] LABS: BUN/Creatinine Ratio 31.3 (8-20); EGFR African American 117.3 (>60); EGFR Non-African American 91.2 (>60); Magnesium 2.1 mg/dL (1.9-2.7); Potassium 3.2 mmol/L (3.5-5.0)
[2017-03-13] MEDS: KCL 20 MEQ/100 ML IVPREMIX* 20 MEQ/100 ML BAG IV SCH ×2 (05:48→08:47)
[2017-03-13] MEDS: Heparin VIAL(*) 5000 UNITS/ML VIAL (FIVE THOUSAND) SUBCUT SCH ×3 (05:48→21:21)
[2017-03-13] MEDS: Budesonide NEB* 0.5 MG/2 ML NEB.SOLN INH SCH ×2 (08:53→20:14)
[2017-03-13] MEDS: Albuterol 2.5 MG/3 ML NEB.SOL* (0.083%) INH PRN ×2 (08:53→20:13)
[2017-03-13] MEDS: Vitamin THERAPEUTIC TAB PO SCH (09:16)
[2017-03-13] MEDS ORDERED: Potassium Chloride LIQUID* 20 MEQ PACKET PO ONE (10:55)
--- NOTE | 2017-03-13 11:06 | PN ---
Progress Note - Progress Note Date of Service: 03/13/17 Note: Progress Note Critical Care 24 hour events/significant events: -extubated 2 days ago -overnight some resp distress again, given morphine and racemic epi, morphine helped more -now in chair, no distress, comfortable on 10lpm salter. -afebrile overnight, tmax 100.4 -afib yesterday, transient but broke to NSR, cardizem never started but ordered.l Tele: NSR Vitals: Vital Signs Temp 98.8 F 03/13/17 08:00 Pulse 58 03/13/17 08:54 Resp 98 03/13/17 08:54 BP 123/68 03/13/17 08:00 Pulse Ox 19 03/13/17 08:54 Intake & Output 03/12/17 03/13/17 03/13/17 18:59 06:59 18:59 Intake Total 476 441 Output Total 3975 750 Balance -3499 -309 Weight 154 lb 149 lb 0.52 oz Intake: IV Fluids 370 391 NS (0.9%) 370 391 IVPB 106 50 NS (0.9%) 106 50 Oral 0 Output: Rausch 3275 750 Other 700 Other: Other Amount Description thorocentesis drainage, Right chest O2/Vent: salter 10lpm NC, sat 97%, rr 20 Infusions: heplock Medications: Albuterol (Ventolin 2.5 Mg/3 Ml Neb.Tammy*) 2.5 mg INH Q4H PRN PRN Reason: SOB/WHEEZING Last Admin: 03/13/17 08:53 Dose: 2.5 mg Budesonide (Pulmicort Neb*) 0.5 mg INH RT.BID [facility] Last Admin: 03/13/17 08:53 Dose: 0.5 mg Haloperidol Lactate (Haldol Inj Iv/Im*) 2.5 mg IV SLOW PU Q4H PRN PRN Reason: AGITATION Last Admin: 03/11/17 06:18 Dose: 2.5 mg Heparin Sodium (Porcine) (Heparin Vial(*)) 5,000 units SUBCUT Q8HR [facility] Last Admin: 03/13/17 05:48 Dose: 5,000 units Levofloxacin/Dextrose (Levaquin 500 Mg Ivpremix(*)) 500 mg in 100 mls @ 100 mls /hr IVPB Q24H [facility] Last Admin: 03/12/17 10:10 Dose: 100 mls/hr Sodium Chloride (Ns 0.9% 1000 Ml*) 1,000 mls @ 30 mls/hr IV PER RATE [facility] Last Admin: 03/12/17 13:52 Dose: 30 mls/hr Diltiazem HCl (Cardizem Iv Advan*) 100 mg in 100 mls @ 5 mls/hr IVPB .PER PARAMETERS TIA; 5 MG/HR PRN Reason: Protocol Metoprolol Tartrate (Lopressor Iv*) 5 mg IV Q6H PRN PRN Reason: TACHYCARDIA Last Admin: 03/12/17 17:19 Dose: 5 mg Morphine Sulfate (Morphine Inj (Syringe)*) 4 mg IV Q4H PRN PRN Reason: TACHYPNEA/LABORED RESPIRATIONS Last Admin: 03/11/17 18:13 Dose: 4 mg Multivitamins (Theragran Tab*) 1 tab PO DAILY [facility] Last Admin: 03/13/17 09:16 Dose: 1 tab Ondansetron HCl (Zofran Inj*) 4 mg IV Q4H PRN PRN Reason: NAUSEA/VOMITING Physical Exam: General: awake, alert, no distress, no diaphoresis Head: normocephalic, atraumatic HEENT: no pallor, no icterus, moist mucous membranes Neck: soft, supple, no jvd, no stridor CVS: normal rate, normal rhythm, no murmur Resp: bilateral air entry, no rhales, no wheeze, no rhonchi, no acc muscle use Abdomen: soft, nontender, nondistended, bowel sounds present Ext: pulses+, warm, no edema Skin: intact, no breakdown, no dryness Neuro: awake, alert, orientedx2, slow to respond but does respond, moving all extremities, no gross focal deficit Labs: Laboratory Results - last 24 hr 03/12/17 03/12/17 03/12/17 11:41 15:55 15:55 WBC 12.5 H RBC 3.98 L Hgb 11.3 L Hct 34 L MCV 85 MCH 28 MCHC 33 RDW 13 Plt Count 273 MPV 7 L Immature Gran % (Auto) 18 H Neut % (Auto) 76.1 Lymph % (Auto) 12.1 L [place] % (Auto) 11.0 H Eos % (Auto) 0.2 Baso % (Auto) 0.6 Absolute Neuts (auto) 9.5 H Absolute Lymphs (auto) 1.5 Absolute Monos (auto) 1.4 H Absolute Eos (auto) 0 Absolute Basos (auto) 0.1 Absolute Nucleated RBC 0.01 Neutrophils % 58 Band Neutrophils % 18 H Lymphocytes % 16 L Reactive Lymphs % Not Reportable Monocytes % 8 Nucleated RBC % 0.1 Normal RBC Morphology Normal Sodium 137 Potassium 2.8 L Chloride 98 L Carbon Dioxide 30 Anion Gap 9 BUN 16 Creatinine 0.59 Est GFR ( Amer) 128.9 Est GFR (Non-Af Amer) 100.2 BUN/Creatinine Ratio 27.1 H Glucose 119 H Calcium 8.5 L Magnesium 1.6 L Fluid Source Pleural fluid Fluid Volume 7 Fluid Color Yellow Fluid Appearance Cloudy Fluid WBC 228 Fluid RBC 1667 Fluid Tot Cell Count 100 Fluid Neutrophils 67 Fluid Lymphocytes 16 Fluid Monocytes 17 Fluid Other Cells 15 Fluid Cell Count Rvw By 03/13/17 03/13/17 04:20 04:20 WBC 9.2 RBC 3.71 L Hgb 10.7 L Hct 32 L MCV 86 MCH 29 MCHC 34 RDW 14 Plt Count 280 MPV 7 L Immature Gran % (Auto) Neut % (Auto) 74.1 Lymph % (Auto) 14.6 L Calvert % (Auto) 10.0 H Eos % (Auto) 0.6 Baso % (Auto) 0.7 Absolute Neuts (auto) 6.8 Absolute Lymphs (auto) 1.3 Absolute Monos (auto) 0.9 H Absolute Eos (auto) 0.1 Absolute Basos (auto) 0.1 Absolute Nucleated RBC 0 Neutrophils % Band Neutrophils % Lymphocytes % Reactive Lymphs % Monocytes % Nucleated RBC % 0 Normal RBC Morphology Sodium 136 Potassium 3.2 L Chloride 100 L Carbon Dioxide 30 Anion Gap 6 BUN 20 Creatinine 0.64 Est GFR ( Amer) 117.3 Est GFR (Non-Af Amer) 91.2 BUN/Creatinine Ratio 31.3 H Glucose 105 H Calcium 8.0 L Magnesium 2.1 Fluid Source Fluid Volume Fluid Color Fluid Appearance Fluid WBC Fluid RBC Fluid Tot Cell Count Fluid Neutrophils Fluid Lymphocytes Fluid Monocytes Fluid Other Cells Fluid Cell Count Rvw By Imaging: cxr 03/12 - right pleural effusion cta 03/12 - right mod pleural effusion, small left effusion, atelectic/consol changes on right Assessment: 71y F brought in by EMS for suspected intentional overdose of ASA, symptoms of diarrhea, urinary incontinence, vomiting, ear ringing. Was intubated , extubated 03/11 -Salicylate overodose -Suspected Suicide Attempt -Acute Respiratory failure, unspecified -Metabolic/toxic Encephelopathy -AKHIL, s/p HD, now improved/recovered -Pleural effusions, s/p thorac 03/12 -Anemia -Thrombocytopenia Plan: Neuro- stable. denies suicide attempt. seems to be returning to baseline mental status now? haldol prn for agitation. no further episodes noted. delirium prec. 1:1 watch still. psych to eval patient once she is medically stable and on medical floor, discussed with them CVS- hemodyn stable. NSR now. not in afib. lopressor iv prn. cardizem ordered but never used. d/c cardizem IV. looks euvolemic now. lasix prn. noted LV systolic dysfunction. May be 2/2 to acute dysfunction, can repeat in 1-2 weeks. start lopressor po 12.5mg bid. Resp- on NC, hiflow. transition to NC now. s/p thor of right yesterday 700cc removed. improved now. cont nebs as needed. incentive spirometer. cxr tomorrow. will d/c TLC/HD cath tomorrow. ID- wbc okay, afebrile. tmax 100.4. on levaquin. will give 5 days total. likely aspiration from the overdose and respiratory failure. GI- po diet. tolerating. Renal- AKHIL resolved, making urine. lasix as needed. repleting K today, hypokalemia. no acidosis. no plan for further HD. discontinue rausch cath today. Heme- hg stable, anemia. plt stable. no bleeding. heparin sq. Musculsk- pressure ulcer proph. Wounds- none DVT prophylaxis: heparin sq GI prophylaxis: - Central Line: right IJ TLC/HD cath Arterial Line: no Rausch Cathetor: yes Disposition: ICU for respiratory failure; improving. if resp status stable/ improved tomorrow, can transfer to medical floor. Code Status: full code Mike Patricia MD [employer] Electric[employer] (Electronically Signed)
[2017-03-13] MEDS: Levofloxacin 500 MG IVPREMIX(* 500 MG/100 ML BAG IVPB SCH (11:25)
[2017-03-13] MEDS ORDERED: Phenol 1.4% Spray* 177 ML BTL MT PRN (16:12)
[2017-03-13] MEDS: Metoprolol Tartrate TAB* 25 MG PO SCH ×2 (18:18→21:20)
[2017-03-13] MEDS: Morphine INJ* 4 MG/ML 1 ML CARPUJECT IV PRN (21:21)
[2017-03-14] MEDS: Albuterol 2.5 MG/3 ML NEB.SOL* (0.083%) INH PRN (04:06)
[2017-03-14 06:22] LABS: Hematocrit 33 % (35-47); Mean Corpuscular HGB Conc 34 g/dl (31-36); Mean Corpuscular Hemoglobin 29 pg (27-31); Mean Corpuscular Volume 87 fL (80-97); Mean Platelet Volume 7 um3 (7.4-10.4); Red Blood Count 3.78 10^6/ul (4.0-5.4); Red Cell Distribution Width 14 % (10.5-15)
[2017-03-14] MEDS: Heparin VIAL(*) 5000 UNITS/ML VIAL (FIVE THOUSAND) SUBCUT SCH ×3 (06:30→21:33)
[2017-03-14 06:35] LABS: BUN/Creatinine Ratio 35.2 (8-20); Calcium 8.2 mg/dL (8.6-10.3); EGFR African American 142.7 (>60); Potassium 3.3 mmol/L (3.5-5.0)
[2017-03-14] MEDS: Budesonide NEB* 0.5 MG/2 ML NEB.SOLN INH SCH ×2 (08:01→19:55)
--- NOTE | 2017-03-14 08:03 | RAD ---
INDICATION: Pleural effusion. COMPARISON: Comparison is made with a prior CT of the chest from March 12, 2017. TECHNIQUE: A portable view of the chest was obtained. FINDINGS: Cardiac and mediastinal contours appear to be within normal limits. There is mild prominence of the interstitial markings with a patchy infiltrate in the mid and lower left lung field and small bilateral pleural effusions which appear slightly improved from the prior study. IMPRESSION: FINDINGS SUGGESTIVE OF CONGESTIVE HEART FAILURE AND/OR PNEUMONIA WITH SLIGHT IMPROVEMENT IN THE PLEURAL EFFUSIONS.
[2017-03-14] MEDS ORDERED: Potassium Chloride LIQUID* 20 MEQ PACKET PO ONE (08:51)
--- NOTE | 2017-03-14 09:01 | PN ---
Progress Note - Progress Note Date of Service: 03/14/17 Note: Progress Note Critical Care 24 hour events/significant events: -no overnight events noted; remains in NSR -no resp distress overnight; on moving desated to upper 80s and came back up, on 2L NC now, sats upper 90s, RR 16 -in bed, no discomfort, appears comfortable Tele: NSR Vitals: Vital Signs Temp 97.2 F 03/14/17 04:00 Pulse 63 03/14/17 08:00 Resp 17 03/14/17 08:00 BP 119/67 03/14/17 07:00 Pulse Ox 95 03/14/17 08:07 Intake & Output 03/13/17 03/14/17 03/14/17 18:59 06:59 18:59 Intake Total 1190 448 Output Total 600 350 Balance 590 98 Weight 146 lb 9.718 oz Intake: IV Fluids 210 448 NS (0.9%) 210 NS to Maintain IV Patency 448 IVPB 200 NS (0.9%) 200 Oral 780 Output: Urine 50 350 Angelo 550 O2/Vent: NC 2 L Infusions: heplock Medications: Albuterol (Ventolin 2.5 Mg/3 Ml Neb.Tammy*) 2.5 mg INH Q4H PRN PRN Reason: SOB/WHEEZING Last Admin: 03/14/17 04:06 Dose: 2.5 mg Budesonide (Pulmicort Neb*) 0.5 mg INH RT.BID [facility] Last Admin: 03/14/17 08:01 Dose: 0.5 mg Haloperidol Lactate (Haldol Inj Iv/Im*) 2.5 mg IV SLOW PU Q4H PRN PRN Reason: AGITATION Last Admin: 03/11/17 06:18 Dose: 2.5 mg Heparin Sodium (Porcine) (Heparin Vial(*)) 5,000 units SUBCUT Q8HR [facility] Last Admin: 03/14/17 06:30 Dose: 5,000 units Levofloxacin/Dextrose (Levaquin 500 Mg Ivpremix(*)) 500 mg in 100 mls @ 100 mls /hr IVPB Q24H [facility] Stop: 03/15/17 23:59 Last Admin: 03/13/17 11:25 Dose: 100 mls/hr Sodium Chloride (Ns 0.9% 1000 Ml*) 1,000 mls @ 30 mls/hr IV PER RATE [facility] Last Admin: 03/12/17 13:52 Dose: 30 mls/hr Metoprolol Tartrate (Lopressor Iv*) 5 mg IV Q6H PRN PRN Reason: TACHYCARDIA Last Admin: 03/12/17 17:19 Dose: 5 mg Metoprolol Tartrate (Lopressor Tab*) 12.5 mg PO Q12HR [facility] Last Admin: 03/13/17 21:20 Dose: 12.5 mg Morphine Sulfate (Morphine Inj (Syringe)*) 4 mg IV Q4H PRN PRN Reason: TACHYPNEA/LABORED RESPIRATIONS Last Admin: 03/13/17 21:21 Dose: 4 mg Multivitamins (Theragran Tab*) 1 tab PO DAILY [facility] Last Admin: 03/13/17 09:16 Dose: 1 tab Ondansetron HCl (Zofran Inj*) 4 mg IV Q4H PRN PRN Reason: NAUSEA/VOMITING Phenol/Menthol (Chloroseptic Throat [place]*) 1 spray MT BID PRN PRN Reason: SORE THROAT Physical Exam: General: awake, alert, no distress, no diaphoresis Head: normocephalic, atraumatic HEENT: no pallor, no icterus, moist mucous membranes Neck: soft, supple, no jvd, no stridor CVS: normal rate, normal rhythm, no murmur Resp: bilateral air entry, no rhales, no wheeze, no rhonchi, no acc muscle use Abdomen: soft, nontender, nondistended, bowel sounds present Ext: pulses+, warm, no edema Skin: intact, no breakdown, no dryness Neuro: awake, alert, orientedx3, moving all extremities, no gross focal deficit , answers/asks questions Labs: Laboratory Results - last 24 hr 03/12/17 03/12/17 03/14/17 11:41 11:41 06:11 WBC RBC Hgb Hct MCV MCH MCHC RDW Plt Count MPV Sodium 137 Potassium 3.3 L Chloride 102 Carbon Dioxide 30 Anion Gap 5 BUN 19 Creatinine 0.54 Est GFR ( Amer) 142.7 Est GFR (Non-Af Amer) 111.0 BUN/Creatinine Ratio 35.2 H Glucose 109 H Calcium 8.2 L Fluid Source Pleural fluid Pleural fluid Fluid Total Protein 2.0 Fluid LDH 371 03/14/17 06:11 WBC 10.0 RBC 3.78 L Hgb 11.0 L Hct 33 L MCV 87 MCH 29 MCHC 34 RDW 14 Plt Count 307 MPV 7 L Sodium Potassium Chloride Carbon Dioxide Anion Gap BUN Creatinine Est GFR ( Amer) Est GFR (Non-Af Amer) BUN/Creatinine Ratio Glucose Calcium Fluid Source Fluid Total Protein Fluid LDH Imaging: cxr 03/12 - right pleural effusion cta 03/12 - right mod pleural effusion, small left effusion, atelectic/consol changes on right cxr 03/14 - right effusion improved post drainage; left infiltrates improving Assessment: 71y F brought in by EMS for suspected intentional overdose of ASA, symptoms of diarrhea, urinary incontinence, vomiting, ear ringing. Was intubated , extubated 03/11 -Salicylate overodose, resolved -Suspected Suicide Attempt -Acute Respiratory failure, unspecified, improving -left lower lobe aspiration pneumonia; improving -Metabolic/toxic Encephelopathy, improved -AKHIL, s/p HD, now improved/recovered -Pleural effusions, s/p right thorac 03/12 -Anemia -Thrombocytopenia Plan: Neuro- stable. alert. psych eval to be done once medically improved and on medical floor, discussed with them, yesterday, they are aware of her. cont 1:1 watch for suicide attempt. CVS- hemodyn stable. NSR now. metoprolol 12.5mg po bid. looks euvolemic now. noted LV systolic dysfunction. May be 2/2 to acute dysfunction, can repeat in 1- 2 weeks. Resp- on NC 2L, no distress. CXR improved effusion and infiltrate. Day #4 levaquin iv. cont nebs as needed. incentive spirometer. ID- wbc okay, afebrile. on levaquin day#4/5, discontinue after 5th dose tomorrow. GI- po diet. tolerating. Renal- AKHIL resolved, making urine. repleting K 40meq po today, hypokalemia. no acidosis. no indication for further HD. discontinue HD cathetor today. Heme- hg stable, anemia. plt stable. no bleeding. heparin sq. Musculsk- pressure ulcer proph. Wounds- none DVT prophylaxis: heparin sq GI prophylaxis: - Central Line: right IJ TLC/HD cath Arterial Line: no Angelo Cathetor: yes Disposition: ICU for respiratory failure; improved. stable for transfer to medical floor today, transfer to hospitalist service. Code Status: full code Mike Patricia MD [employer] Technician (Electronically Signed)
[2017-03-14] MEDS: Metoprolol Tartrate TAB* 25 MG PO SCH ×2 (09:53→21:00)
[2017-03-14] MEDS: Vitamin THERAPEUTIC TAB PO SCH (09:54)
[2017-03-14] MEDS ORDERED: Potassium Chlor TAB* 20 MEQ TAB.ER PO ONE (10:28)
[2017-03-14] MEDS: Levofloxacin 500 MG IVPREMIX(* 500 MG/100 ML BAG IVPB SCH (10:30)
[2017-03-14] MEDS: NS 0.9% 1000 ML* 1,000 ML IV SCH (17:10)
[2017-03-15] MEDS: Heparin VIAL(*) 5000 UNITS/ML VIAL (FIVE THOUSAND) SUBCUT SCH ×3 (05:49→21:14)
[2017-03-15 05:58] LABS: Hematocrit 34 % (35-47); Hemoglobin 11.3 g/dl (12.0-16.0); Mean Corpuscular HGB Conc 33 g/dl (31-36); Mean Corpuscular Hemoglobin 29 pg (27-31); Mean Corpuscular Volume 86 fL (80-97); Mean Platelet Volume 7 um3 (7.4-10.4); Red Blood Count 3.91 10^6/ul (4.0-5.4); Red Cell Distribution Width 13 % (10.5-15); White Blood Count 9.1 10^3/ul (3.5-10.8)
[2017-03-15 06:12] LABS: BUN/Creatinine Ratio 23.3 (8-20); Calcium 8.4 mg/dL (8.6-10.3); EGFR African American 126.4 (>60); EGFR Non-African American 98.3 (>60); Potassium 3.3 mmol/L (3.5-5.0)
--- NOTE | 2017-03-15 09:18 | PN ---
Subjective Date of Service: 03/15/17 Interval History: Patient seen and examined at bedside. Denies fever, chills, shortness of breath , chest discomfort, N/V/D. Pt states that she initially took ASA in a suicide attempt, but no longer reports having suicidal ideations. Family History: Unchanged from Admission Social History: Unchanged from Admission Past Medical History: Unchanged from Admission Objective Active Medications: Albuterol (Ventolin 2.5 Mg/3 Ml Neb.Tammy*) 2.5 mg INH Q4H PRN Reason: SOB/ WHEEZING Budesonide (Pulmicort Neb*) 0.5 mg INH RT.BID TIA Haloperidol Lactate (Haldol Inj Iv/Im*) 2.5 mg IV SLOW PU Q4H PRN Reason: AGITATION Heparin Sodium (Porcine) (Heparin Vial(*)) 5,000 units SUBCUT Q8HR TIA Levofloxacin/Dextrose (Levaquin 500 Mg Ivpremix(*)) 500 mg in 100 mls @ 100 mls /hr IVPB Q24H TIA Stop: 03/15/17 23:59 Sodium Chloride (Ns 0.9% 1000 Ml*) 1,000 mls @ 30 mls/hr IV PER RATE ON LICENSE OF [facility] Metoprolol Tartrate (Lopressor Iv*) 5 mg IV Q6H PRN Reason: TACHYCARDIA Metoprolol Tartrate (Lopressor Tab*) 12.5 mg PO Q12HR ON LICENSE OF [facility] Morphine Sulfate (Morphine Inj (Syringe)*) 4 mg IV Q4H PRN Reason: TACHYPNEA/ LABORED RESPIRATIONS Multivitamins (Theragran Tab*) 1 tab PO DAILY ON LICENSE OF [facility] Ondansetron HCl (Zofran Inj*) 4 mg IV Q4H PRN Reason: NAUSEA/VOMITING Phenol/Menthol (Chloroseptic Throat [place]*) 1 spray MT BID PRN Reason: SORE THROAT Vital Signs 03/14/17 03/14/17 03/14/17 10:00 10:08 11:00 Temperature Pulse Rate 70 70 Respiratory 21 Rate Blood Pressure (mmHg) O2 Sat by Pulse 89 92 Oximetry 03/14/17 03/14/17 03/14/17 12:00 13:00 14:00 Temperature 98 F Pulse Rate 73 66 72 Respiratory Rate Blood Pressure (mmHg) O2 Sat by Pulse 97 93 94 Oximetry 03/14/17 03/14/17 03/14/17 15:00 15:40 20:00 Temperature 98.7 F Pulse Rate 89 75 80 Respiratory 18 16 Rate Blood Pressure 105/58 (mmHg) O2 Sat by Pulse 89 98 99 Oximetry 03/14/17 03/14/17 03/14/17 20:01 20:03 20:27 Temperature 98.8 F Pulse Rate 80 Respiratory 24 20 Rate Blood Pressure 115/56 (mmHg) O2 Sat by Pulse 99 99 Oximetry 03/14/17 03/15/17 03/15/17 23:55 03:51 08:18 Temperature 97.3 F 98.0 F Pulse Rate 71 63 69 Respiratory 18 20 20 Rate Blood Pressure 112/54 114/51 95/60 (mmHg) O2 Sat by Pulse 96 94 98 Oximetry 03/15/17 08:58 Temperature Pulse Rate 66 Respiratory Rate Blood Pressure 98/60 (mmHg) O2 Sat by Pulse Oximetry Oxygen Devices in Use Now: Nasal Cannula - 2L Appearance: NAD, laying in bed Ears/Nose/Mouth/Throat: Mucous Membranes Moist Respiratory: Symmetrical Chest Expansion and Respiratory Effort, Clear to Auscultation Cardiovascular: NL Sounds; No Murmurs; No JVD, RRR Abdominal: NL Sounds; No Tenderness; No Distention Extremities: No Edema Skin: No Rash or Ulcers Neurological: Alert and Oriented x 3, NL Muscle Strength and Tone Lines/Tubes/Other Access: Clean, Dry and Intact Peripheral IV - site benign Nutrition: Taking PO's Result Diagrams: 03/15/17 05:21 03/15/17 05:21 Additional Lab and Data: Microbiology and Other Data: Microbiology 03/12/17 11:41 Sterile Body Fluid Culture - Preliminary Body Fluid - Pleura No Growth Day 2 Sterile Body Fluid Culture - Preliminary No Growth Day 2 03/11/17 10:31 Aerobic Blood Culture - Preliminary Blood Venous No Growth Day 3 Anaerobic Blood Culture - Preliminary No Growth Day 3 Blood Culture - Final 03/11/17 10:25 Aerobic Blood Culture - Preliminary Blood Venous No Growth Day 3 Anaerobic Blood Culture - Preliminary No Growth Day 3 Blood Culture - Final 03/11/17 10:33 Urine Culture - Final Urine Staphylococcus Epidermidis 03/12/17 11:41 Gram Stain - Final Body Fluid - Pleura, Rt Lung 03/06/17 06:40 Nasal Screen MRSA (PCR)(FAUSTO) - Final Nasal Mrsa Negative Assess/Plan/Problems-Billing Assessment: Ms. Marley is a 71 yo female with PMH significant for anxiety, IBS, osteoarthritis and past suicide attempts who presented to the emergency room with EMS for a suspected intentional overdose of ASA. - Patient Problems (1) Salicylate overdose Code(s): T39.091A - POISONING BY SALICYLATES, ACCIDENTAL (UNINTENTIONAL), INIT SNOMED Code(s): 960323388 Comment: - Suspect this was intentional suicide attempt - Resolved - Continue 1:1 - Psychiatric consult pending (2) Acute respiratory failure Code(s): J96.00 - ACUTE RESPIRATORY FAILURE, UNSP W HYPOXIA OR HYPERCAPNIA SNOMED Code(s): 49656788 Comment: - Extubated on 03/11 - Improving, Pt has been weaned down to 2L via NC (3) Pneumonia Code(s): J18.9 - PNEUMONIA, UNSPECIFIED ORGANISM SNOMED Code(s): 819298264 Comment: - Left lower lobe pneumonia - Improving (leukocytosis resolved, afebrile) - Chest xray 03/14 - improved effusion and infiltrate - O2 requirements decreasing - Continue nebs PRN and IS - Continue Levaquin day 10/06 (last dose tonight) (4) Toxic metabolic encephalopathy Code(s): G92 - TOXIC ENCEPHALOPATHY SNOMED Code(s): 806630323 Comment: - Improved (5) AKHIL (acute kidney injury) Code(s): N17.9 - ACUTE KIDNEY FAILURE, UNSPECIFIED SNOMED Code(s): 64109665 Comment: - S/P HD - Resolved - HD catheter D/C yesterday (6) Pleural effusion Code(s): J90 - PLEURAL EFFUSION, NOT ELSEWHERE CLASSIFIED SNOMED Code(s): 86923236 Comment: - S/P right thoracotomy on 03/12 (7) Anemia Code(s): D64.9 - ANEMIA, UNSPECIFIED SNOMED Code(s): 067402197 Comment: - HH stable (8) Thrombocytopenia Code(s): D69.6 - THROMBOCYTOPENIA, UNSPECIFIED SNOMED Code(s): 713541342 Comment: - Resolved (9) Electrolyte abnormality Code(s): E87.8 - OTH DISORDERS OF ELECTROLYTE AND FLUID BALANCE, NEC SNOMED Code(s): 345195869 Comment: - Hypokalemia - will give replacement today and recheck labs in the AM - Will check MG+ and replace if needed (10) Systolic dysfunction, left ventricle Code(s): I51.9 - HEART DISEASE, UNSPECIFIED SNOMED Code(s): 138386960 Comment: - Continue metoprolol 12.5mg BID - Suspect secondary to acute dysfunction - Repeat echo in 1-2 weeks (11) Anxiety Code(s): F41.9 - ANXIETY DISORDER, UNSPECIFIED SNOMED Code(s): 19089035 Comment: - Stable (12) DVT prophylaxis Code(s): [id number] - SNOMED Code(s): 866464491 Comment: - SQ heparin (13) Full code status Code(s): Z78.9 - OTHER SPECIFIED HEALTH STATUS SNOMED Code(s): 512611074 Status and Disposition: Inpatient. Plan for possible discharge to [facility] once medically stable, Psychiatric consult pending.
[2017-03-15] MEDS: Budesonide NEB* 0.5 MG/2 ML NEB.SOLN INH SCH (09:22)
[2017-03-15] MEDS: Metoprolol Tartrate TAB* 25 MG PO SCH ×2 (09:31→21:12)
[2017-03-15] MEDS: Vitamin THERAPEUTIC TAB PO SCH (09:31)
[2017-03-15] MEDS: Levofloxacin 500 MG IVPREMIX(* 500 MG/100 ML BAG IVPB SCH (09:34)
[2017-03-15] MEDS ORDERED: KCL 20 MEQ/100 ML IVPREMIX* 20 MEQ/100 ML BAG IV ONE (09:40)
[2017-03-15] MEDS ORDERED: Potassium Chlor TAB* 20 MEQ TAB.ER PO ONE (09:40)
[2017-03-15] MEDS ORDERED: Polyethylene Glycol 3350* 17 GM PACKET PO PRN (09:58)
[2017-03-15] MEDS ORDERED: Magnesium Hydroxide LIQ* 30 ML UDC PO PRN (09:58)
[2017-03-15 09:59] LABS: Magnesium 1.8 mg/dL (1.9-2.7)
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
[2017-03-16] MEDS: Heparin VIAL(*) 5000 UNITS/ML VIAL (FIVE THOUSAND) SUBCUT SCH ×2 (05:58→14:35)
[2017-03-16 06:20] LABS: Hematocrit 34 % (35-47); Hemoglobin 11.3 g/dl (12.0-16.0); Mean Corpuscular HGB Conc 34 g/dl (31-36); Mean Corpuscular Hemoglobin 29 pg (27-31); Mean Corpuscular Volume 86 fL (80-97); Mean Platelet Volume 7 um3 (7.4-10.4); Red Blood Count 3.92 10^6/ul (4.0-5.4); Red Cell Distribution Width 14 % (10.5-15); White Blood Count 8.9 10^3/ul (3.5-10.8)
[2017-03-16 06:35] LABS: BUN/Creatinine Ratio 21.9 (8-20); Calcium 8.7 mg/dL (8.6-10.3); EGFR African American 117.3 (>60); EGFR Non-African American 91.2 (>60); Potassium 3.9 mmol/L (3.5-5.0)
[2017-03-16] MEDS: Vitamin THERAPEUTIC TAB PO SCH (09:30)
[2017-03-16] MEDS: Metoprolol Tartrate TAB* 25 MG PO SCH (09:31)
[2017-03-16 12:20] VITALS: BP 99/47
--- NOTE | 2017-03-16 13:15 | PN ---
Subjective Date of Service: 03/16/17 Interval History: Patient seen and examined at bedside. Pt is upset about going to mental health and worried about who will care for her animals. Denies fever, chills, lightheadedness or dizziness, shortness of breath, chest discomfort, N/V/D. Family History: Unchanged from Admission Social History: Unchanged from Admission Past Medical History: Unchanged from Admission Objective Active Medications: Albuterol (Ventolin 2.5 Mg/3 Ml Neb.Tammy*) 2.5 mg INH Q4H PRN Reason: SOB/ WHEEZING Haloperidol Lactate (Haldol Inj Iv/Im*) 2.5 mg IV SLOW PU Q4H PRN Reason: AGITATION Heparin Sodium (Porcine) (Heparin Vial(*)) 5,000 units SUBCUT Q8HR TIA Magnesium Hydroxide (Milk Of Magnesia Liq*) 30 ml PO Q6H PRN Reason: CONSTIPATION Metoprolol Tartrate (Lopressor Tab*) 12.5 mg PO Q12HR TIA Morphine Sulfate (Morphine Inj (Syringe)*) 4 mg IV Q4H PRN Reason: TACHYPNEA/ LABORED RESPIRATIONS Multivitamins (Theragran Tab*) 1 tab PO DAILY TIA Ondansetron HCl (Zofran Inj*) 4 mg IV Q4H PRN Reason: NAUSEA/VOMITING Phenol/Menthol (Chloroseptic Throat [place]*) 1 spray MT BID PRN Reason: SORE THROAT Polyethylene Glycol/Electrolytes (Miralax*) 17 gm PO DAILY PRN Reason: CONSTIPATION Vital Signs 03/15/17 03/15/17 03/15/17 13:58 20:00 20:01 Temperature 98.4 F 98.9 F Pulse Rate 68 71 Respiratory 16 16 22 Rate Blood Pressure 93/51 111/52 (mmHg) O2 Sat by Pulse 95 95 Oximetry 03/15/17 03/16/17 03/16/17 23:52 01:47 03:49 Temperature 99.0 F 97.7 F Pulse Rate 73 70 65 Respiratory 18 20 16 Rate Blood Pressure 103/45 108/48 (mmHg) O2 Sat by Pulse 93 95 95 Oximetry 03/16/17 03/16/17 03/16/17 07:28 08:00 08:21 Temperature 98.2 F Pulse Rate 62 Respiratory 17 16 16 Rate Blood Pressure 120/58 (mmHg) O2 Sat by Pulse 97 Oximetry 03/16/17 03/16/17 10:29 11:31 Temperature 98.0 F Pulse Rate 65 68 Respiratory 16 15 Rate Blood Pressure 99/47 (mmHg) O2 Sat by Pulse 94 98 Oximetry Oxygen Devices in Use Now: None Appearance: NAD, sitting up on the side of the bed Ears/Nose/Mouth/Throat: Mucous Membranes Moist Respiratory: Symmetrical Chest Expansion and Respiratory Effort, Clear to Auscultation Cardiovascular: NL Sounds; No Murmurs; No JVD, RRR Abdominal: NL Sounds; No Tenderness; No Distention Extremities: No Edema Skin: No Rash or Ulcers Neurological: Alert and Oriented x 3, NL Muscle Strength and Tone Nutrition: Taking PO's Result Diagrams: 03/16/17 05:45 03/16/17 05:45 Additional Lab and Data: Microbiology and Other Data: Microbiology 03/12/17 11:41 Sterile Body Fluid Culture - Preliminary Body Fluid - Pleura No Growth Day 2 Sterile Body Fluid Culture - Preliminary No Growth Day 2 03/11/17 10:31 Aerobic Blood Culture - Preliminary Blood Venous No Growth Day 3 Anaerobic Blood Culture - Preliminary No Growth Day 3 Blood Culture - Final 03/11/17 10:25 Aerobic Blood Culture - Preliminary Blood Venous No Growth Day 3 Anaerobic Blood Culture - Preliminary No Growth Day 3 Blood Culture - Final 03/11/17 10:33 Urine Culture - Final Urine Staphylococcus Epidermidis 03/12/17 11:41 Gram Stain - Final Body Fluid - Pleura, Rt Lung 03/06/17 06:40 Nasal Screen MRSA (PCR)(FAUSTO) - Final Nasal Mrsa Negative Assess/Plan/Problems-Billing Assessment: Ms. Marley is a 71 yo female with PMH significant for anxiety, IBS, osteoarthritis and past suicide attempts who presented to the emergency room with EMS for a suspected intentional overdose of ASA. - Patient Problems (1) Salicylate overdose Code(s): T39.091A - POISONING BY SALICYLATES, ACCIDENTAL (UNINTENTIONAL), INIT SNOMED Code(s): 456138875 Comment: - Suspect this was intentional suicide attempt - Resolved - Required HD - Continue 1:1 - Psychiatric consult, input appreciated - Medically clear for discharge to [facility] today (2) Acute respiratory failure Code(s): J96.00 - ACUTE RESPIRATORY FAILURE, UNSP W HYPOXIA OR HYPERCAPNIA SNOMED Code(s): 94003564 Comment: - Extubated on 03/11 - Resolved (3) Pneumonia Code(s): J18.9 - PNEUMONIA, UNSPECIFIED ORGANISM SNOMED Code(s): 029494810 Comment: - Left lower lobe pneumonia - Improving (leukocytosis resolved, afebrile) - Chest xray 03/14 - improved effusion and infiltrate - Continue nebs PRN and IS (4) Toxic metabolic encephalopathy Code(s): G92 - TOXIC ENCEPHALOPATHY SNOMED Code(s): 432446760 Comment: - Resolved (5) Pleural effusion Code(s): J90 - PLEURAL EFFUSION, NOT ELSEWHERE CLASSIFIED SNOMED Code(s): 82482605 Comment: - S/P right thoracentesis on 03/12 (6) Anemia Code(s): D64.9 - ANEMIA, UNSPECIFIED SNOMED Code(s): 763611880 Comment: - HH stable (7) Thrombocytopenia Code(s): D69.6 - THROMBOCYTOPENIA, UNSPECIFIED SNOMED Code(s): 770847702 Comment: - Resolved (8) Electrolyte abnormality Code(s): E87.8 - OTH DISORDERS OF ELECTROLYTE AND FLUID BALANCE, NEC SNOMED Code(s): 670621793 Comment: - Hypokalemia - Resolved - hypomagnesemia - MG+ pending for today (9) Systolic dysfunction, left ventricle Code(s): I51.9 - HEART DISEASE, UNSPECIFIED SNOMED Code(s): 286419610 Comment: - Acute systolic heart failure - Suspect secondary to acute dysfunction d/t hypoxia - EF 25-30% - Daily weights - Continue metoprolol 12.5mg BID - Repeat echo in 1-2 weeks (10) Anxiety Code(s): F41.9 - ANXIETY DISORDER, UNSPECIFIED SNOMED Code(s): 51744050 Comment: - Stable (11) DVT prophylaxis Code(s): JPI1049 - SNOMED Code(s): 668727951 Comment: (12) Full code status Code(s): Z78.9 - OTHER SPECIFIED HEALTH STATUS SNOMED Code(s): 197077851 Status and Disposition: Inpatient. Stable for discharge to [facility] today.
[2017-03-16 13:37] LABS: Magnesium 1.9 mg/dL (1.9-2.7)
--- NOTE | 2017-03-17 09:57 | DS ---
CC: Seth Gama MD.* DISCHARGE SUMMARY: DATE OF ADMISSION: 03/06/17. DATE OF DISCHARGE: 03/16/17. ATTENDING PHYSICIAN: Dr. Eddie Marley * (dictated by Genie Combs NP) . PRIMARY CARE PROVIDER: Seth Gama MD. PRIMARY DIAGNOSES: 1. Salicylate overdose. 2. Acute respiratory failure, resolved. 3. Left lower lobe pneumonia, resolved. 4. Toxic metabolic encephalopathy, resolved. 5. Pleural effusion, status post right thoracentesis. 6. Thrombocytopenia, resolved. 7. Hypokalemia, resolved. 8. Hypomagnesemia, resolved. 9. Left ventricular systolic dysfunction suspect secondary to hypoxia. SECONDARY DIAGNOSES: 1. Anxiety. 2. Anemia. 3. Irritable bowel syndrome. 4. Osteoarthritis. CONSULTATIONS WHILE IN THE HOSPITAL: 1. Dr. Joel Apple with Nephrology. 2. Dr. Michael Daniel with Psychiatry. PROCEDURES WHILE IN THE HOSPITAL: 1. Status post right thoracentesis on 03/12/[address] Jeffries. STUDIES WHILE IN THE HOSPITAL: 1. Chest x-ray on 03/06/17. Radiologist's impression: No active disease. 2. Repeat chest x-ray on 03/06/17. Distal tip of the right IJ central venous catheter is at the level of the superior vena cava directed central. Negative for pneumothorax. 3. Chest x-ray on 03/06/17, appropriate position of lines and tubes according to the radiographic standards. 4. Chest x-ray on 03/08/17. Radiologist's impression: Lines and tubes as above. There is basilar atelectasis versus consolidation. 5. Repeat chest x-ray on 03/08/17. Radiologist's impression: Findings suggestive of congestive heart failure, less likely pneumonia, unchanged. 6. Chest x-ray on 03/10/17. Radiologist's impression: Lines and tubes as above. Pulmonary interstitial edema. Small bilateral pleural effusions. Bibasilar atelectasis versus consolidation. 7. Transthoracic echocardiogram on 03/11/17. Instrument Panel Assembler's conclusion: There are multiple regional wall motion abnormalities. There is severely decreased left ventricular systolic function. Estimated ejection fraction is 20 % to 25%, posterior wall and apex are the best preserved. Diastolic function is nondiagnostic. There is a trace of aortic regurgitation. Mild mitral regurgitation, mild tricuspid regurgitation. Unable to estimate the right ventricular systolic pressure. There is [id number] pulmonic regurgitation. There are changes noted when compared to the previous study done on 08/24/16. LVEF now reduced to 20% to 30% instead of normal 55% to 60% then. 8. CTA on 03/12/17. Radiologist impression: No CT evidence of acute pulmonary embolic disease. Pulmonary interstitial and alveolar edema with extensive consolidation change and [id number] bilateral pleural effusions. 9. Chest x-ray on 03/12/17. Radiologist impression: Cardiomegaly with persistent interstitial edema and bilateral pleural effusions. No pneumothorax is noted after thoracentesis. 10. Bilateral lower extremity venous Doppler study on 03/12/17. Radiologist's impression, no evidence of deep vein thrombosis of either lower extremities present. 11. Chest x-ray on 03/14/17. Radiologist's impression: Findings suggestive of congestive heart failure and/or pneumonia with slight improvement in the pleural effusions. HOSPITAL MEDICATIONS: 1. Albuterol 2.5 mg inhalation every 4 hours as needed for shortness of breath. 2. Haldol 2.5 mg IV every 4 hours as needed for agitation. 3. Heparin 5000 units subcutaneous every 8 hours. 4. Milk of magnesia 30 mL oral every 6 hours as needed for constipation. 5. Metoprolol tartrate 2.5 mg oral every 12 hours. 6. Morphine sulfate 4 mg oral as needed for tachypnea and labored respirations. 7. Multivitamin 1 tablet oral daily. 8. Zofran 4 mg IV every 4 hours as needed for nausea and vomiting. 9. Cepacol throat spray 1 spray twice daily as needed for sore throat. 10. MiraLAX 17 g oral daily as needed for constipation. HOME MEDICATIONS: 1. Hydroxyzine 25 mg oral 3 times daily as needed for anxiety and insomnia. 2. Ambien 5 mg oral daily at bedtime. 3. Propranolol 10 mg oral twice daily. HISTORY OF PRESENT ILLNESS/HOSPITAL COURSE: Ms. Marley is a 71-year-old female with past medical history significant for anxiety disorder, depression, past suicide attempt in November after overdosing on mirtazapine, who presented to the emergency room after overdosing on an unknown amount of aspirin. It is reported that the patient's sister activated 911 after the patient was found projectile vomiting and incontinent of stool in her home. The patient reported that she did not want to go and she wanted to . The patient was brought to the emergency room. While in the emergency room, the patient was found to have an initial aspirin level of 50. She was agitative and combative with continued vomiting. She received Benadryl, Haldol, and Ativan, had a decrease in her agitation, was placed in 2-point restraints for continued aggressive behavior towards the staff and removing medical equipment. The patient continued to complain of nausea, feeling tired. She reported tinnitus in her left ear that is not new. She was given activated charcoal as well as a bolus of sodium bicarbonate, dextrose, potassium, and magnesium. She was poorly interactive during the assessment of the hospitalist. Hospitalists were asked to evaluate the patient for admission. While in the hospital, the patient was initially admitted to the intensive care unit. There were concerns that the patient would not drink activated charcoal and may need an NG tube. The patient was strongly encouraged to drink it to avoid having an NG tube placed. The patient was willingly drinking the charcoal. She was initially kept in restraints to prevent her from dislodging medical equipment. The patient had lactic acidosis in the setting of an aspirin toxicity. It was felt that the patient's diarrhea was in the setting of her overdose. The patient's aspirin level continued to increase. Dr. Apple from Nephrology was consulted on the patient. In the setting of the patient's hypokalemia, he felt that was maybe an indicator that the patient had a chronic salicylate poisoning. It was decided that the patient emergently needed hemodialysis and a temporary dialysis catheter was placed. The patient was able to compensate her metabolic acidosis initially, but was needing increased oxygen needs. The patient eventually was intubated for an acute respiratory failure. She was able to be extubated on03/11/17. During the patient's stay, she developed a pneumonia. She received 5 days of Levaquin. The patient's toxic and metabolic encephalopathy resolved. She had a thoracentesis on . The patient was found to have systolic heart failure. She was placed on metoprolol with recommendations for repeat echo in a few weeks as this was a new finding. The patient was seen in consultation by Dr. Michael Daniel who felt that the patient needed a mental health evaluation. Ms. Marley is stable for discharge to behavioral services unit today. Vital signs are as follows: Temperature 98.0, heart rate 68, respiratory rate 15, O2 sat 98 % on room air, blood pressure 99/47. DISCHARGE PLAN: Ms. Marley will be discharged to behavioral services unit. Activity as tolerated. She should be on a regular low-sodium diet. As far as the patient's systolic heart failure, she should be continued on low-dose metoprolol. She should have an echocardiogram in 1 to 2 weeks repeat. She should also have daily weights. As far as the patient's pneumonia, she completed a course of Levaquin for that. I will defer further management of the patient's depression to Psychiatry. The patient should be seen in followup by her primary care provider, Dr. Gama, at discharge. Ms. Marley should also be referred to cardiology as an outpatient. This is a summarized report of a complex medical history and hospital stay. For further details, please see the entire medical record. TIME SPENT: Time for this discharge was approximately 50 minutes, greater than half of that was spent with the patient discussing her discharge plans and instructions. CONDITION ON DISCHARGE: Stable. Reviewed by DAPHNIE OCASIO 03/31/17 [id number]/[facility] #: [id number] JULIA
[2020-03-08] MEDS ORDERED: fentaNYL* 50 MCG/ML 5 ML VIAL (250 MCG VIAL) ONE (14:32)
== END 2017-03-16 14:45 | DRG 917 ==
LOC: ED 03:03 → ICU 05:11 → MED 03-14 16:05
PROVIDERS: ADMIT Internal Medicine; ATTEND Internal Medicine
PROC: 05HM33Z Insertion of Infusion Device into Right Internal Jugular Vein, Percutaneous Approach (ICD-10-PCS; principal; 2017-03-06)
PROC: 5A1945Z Respiratory Ventilation, 24-96 Consecutive Hours (ICD-10-PCS; 2017-03-06)
PROC: 0BH17EZ Insertion of Endotracheal Airway into Trachea, Via Natural or Artificial Opening (ICD-10-PCS; 2017-03-06)
PROC: 5A1D70Z Performance of Urinary Filtration, Intermittent, Less than 6 Hours Per Day (ICD-10-PCS; 2017-03-06)
PROC: 0W993ZZ Drainage of Right Pleural Cavity, Percutaneous Approach (ICD-10-PCS; 2017-03-12)
DX: T39.012A Poisoning by aspirin, intentional self-harm, initial encounter (principal); J96.00 Acute respiratory failure, unspecified whether with hypoxia or hypercapnia; J69.0 Pneumonitis due to inhalation of food and vomit; N17.9 Acute kidney failure, unspecified; G92 Toxic encephalopathy; J90 Pleural effusion, not elsewhere classified; Z78.1 Physical restraint status; D69.6 Thrombocytopenia, unspecified; D72.829 Elevated white blood cell count, unspecified; K58.9 Irritable bowel syndrome, unspecified; F32.9 Major depressive disorder, single episode, unspecified; F41.9 Anxiety disorder, unspecified; E87.2 Acidosis; R41.0 Disorientation, unspecified; M19.90 Unspecified osteoarthritis, unspecified site; I51.89 Other ill-defined heart diseases; E87.6 Hypokalemia; F60.9 Personality disorder, unspecified; R41.82 Altered mental status, unspecified; F60.89 Other specific personality disorders; Z80.41 Family history of malignant neoplasm of ovary; Z80.3 Family history of malignant neoplasm of breast; Z87.891 Personal history of nicotine dependence; Z88.0 Allergy status to penicillin; Y92.009 Unspecified place in unspecified non-institutional (private) residence as the place of occurrence of the external cause; D64.9 Anemia, unspecified; Z88.2 Allergy status to sulfonamides
CPT/HCPCS: 36415; 36600; 71010; 71275; 80048; 80053; 80076; 80307; 80320; 80329; 81003; 81015; 82140; 82272; 82330; 82550; 82803; 83605; 83615; 83735; 83930; 83986; 84100; 84157; 84443; 84484; 85025; 85027; 85060; 85610; 86706; 86803; 87040; 87077; 87086; 87186; 87205; 87340; 87641; 89051; 90935; 93005; 93306; 93970; 94002; 94003; 94640; 94660; 94667; 94668; 94760; A9270-GY; G0257; G0480; J0461; J0610; J1200; J1630; J1644; J1940; J1956; J2060; J2270; J2310; J2405; J2704; J2930; J3010; J3475; J3480; P9045; Q9967

== ENCOUNTER 2017-03-16 13:50 | Inpatient (IN) | payer MEDICARE ==
[2017-03-16] MEDS ORDERED: Al Hydrox/Mg Hydrox/Simet LIQ* 30 ML UDC PO PRN (15:11)
[2017-03-16] MEDS ORDERED: Acetaminophen TAB* 325 MG PO PRN (15:11)
[2017-03-16] MEDS ORDERED: hydrOXYzine HCL TAB* 25 MG PO PRN (15:13)
[2017-03-16] MEDS: Propranolol TAB* 10 MG PO SCH (19:49)
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
[2017-03-17] MEDS: Propranolol TAB* 10 MG PO SCH ×2 (08:46→21:14)
[2017-03-17] MEDS: Vitamin THERAPEUTIC TAB PO SCH (08:46)
[2017-03-18] MEDS: Vitamin THERAPEUTIC TAB PO SCH (08:46)
[2017-03-18] MEDS: Propranolol TAB* 10 MG PO SCH ×2 (08:46→20:13)
--- NOTE | 2017-03-18 17:58 | PN ---
Subjective - Subjective Service Type: 70520 Hosp care 15 min low complexity Subjective: No change of mental status and continues to be depressed and anxious. Says she is depressed because she is here and would be better if she can go back home to care for her cats and dog. Says she is not sure why she took an over dose. Denies that to be a suicide attempt. However will take an anti-depressent if prescribed by Dr. Daniel. Objective - Appearance Appearance: Healthy Appearing Dysmorphic Features: No Hygiene: Normal Grooming: Fairly Well Kept - Behavior Psychomotor Activities: Abnormal-Decreased Exhibits Abnormal Movement: No - Attitude and Relatedness Attitude and Relatedness: Cooperative Eye Contact: Fair - Speech Quality: Unpressured Latencies: Normal Quantity: Appropriate - Mood Patient's Decription of Mood: "Anxious" - Affect Observed Affect: Constricted - Thought Process Patient's Thought Process: Coherent, Goal Directed Thought Content: No Passive Wish, No Suicidal Planning, No Homicidal Ideation, No Paranoid Ideation - Sensorium Experiencing Hallucinations: No, Sensorium is Clear Type of Hallucinations: Visual: No, Auditory: No, Command: No - Level of Consciousness Level of Consciousness: Alert Orientation: Yes Intact, Yes Orientated to Time, Yes Orientated to Place, Yes Orientated to Person - Impulse Control Impulse Control: Impaired - Insight and Judgement Insight and Judgement: Poor - Group Participation Particating in Group Activities: Yes - Medication Management Medication Management Adherence: Yes Assessment - Assessment Merits Inpatient Hospitalization: For Immediate Safety, Diagnosis Determination , To Initiate Treatment, Pending Safe DC Plan Inpatient DSM-IV Dx: Unspecified Depressive d/o Clinical Impression: Still in denial and a high risk for suicide. Plan - Plan Treatment Plan: Name: CANDY JUDD Birthdate: 1945 [id number] Continued Medication Management: Consider Medication Medications: Current Medications Acetaminophen (Tylenol Tab*) 650 mg PO Q4H PRN PRN Reason: for pain; or Temp >101 F Al Hydrox/Mg Hydrox/Simethicone (Maalox Plus*) 30 ml PO Q4H PRN PRN Reason: INDIGESTION Hydroxyzine HCl (Atarax Tab*) 25 mg PO Q6H PRN PRN Reason: AGITATION/ANXIETY/INSOMNIA Multivitamins (Theragran Tab*) 1 tab PO DAILY TIA Last Admin: 03/18/17 08:46 Dose: 1 tab Propranolol HCl (Inderal Tab*) 10 mg PO BID TIA Last Admin: 03/18/17 08:46 Dose: 10 mg - Discharge Plan Discharge Plan: Consider Longer Term Tx - And ECT
[2017-03-19] MEDS ORDERED: Benzocaine/Menthol LOZ* 1 LOZENGE ONE (03:15)
[2017-03-19] MEDS: Benzocaine/Menthol LOZ* 1 LOZENGE PO PRN ×2 (05:45→07:09)
[2017-03-19] MEDS: Propranolol TAB* 10 MG PO SCH ×2 (08:14→20:04)
[2017-03-19] MEDS: Vitamin THERAPEUTIC TAB PO SCH (08:14)
--- NOTE | 2017-03-19 15:24 | PN ---
Subjective - Subjective Service Type: 25806 Hosp care 15 min low complexity Subjective: Ramonita is in good spirits. Future directed; wants to return home to buy groceries and take care of her pets. She is interested in being more social after discharge and would like to volunteer at the local [employer]. She is tolerating her medicines well but acknowledges that this is now twice that she' s had an intentional overdose on pills leading to hospitalization. "I don't want to do this anymore. My sister says there's gotta be a medication or something that can help me stop this stuff." We discuss options and arrive at a trial of sertraline, which she agrees to. She denies SI. Objective - Appearance Appearance: Well Developed/Nourished Dysmorphic Features: No Hygiene: Normal Grooming: Well Kept - Behavior Psychomotor Activities: Normal Exhibits Abnormal Movement: No - Attitude and Relatedness Attitude and Relatedness: Cooperative Eye Contact: Good - Speech Quality: Unpressured Latencies: Normal Quantity: Appropriate - Mood Patient's Decription of Mood: "Good" - Affect Observed Affect: Fair Affect Consistent with: Euthymia - Thought Process Patient's Thought Process: Coherent Thought Content: No Passive Wish, No Suicidal Planning, No Homicidal Ideation, No Paranoid Ideation - Sensorium Experiencing Hallucinations: No, Sensorium is Clear Type of Hallucinations: Visual: No, Auditory: No, Command: No - Level of Consciousness Level of Consciousness: Alert Orientation: Yes Intact, Yes Orientated to Time, Yes Orientated to Place, Yes Orientated to Person - Impulse Control Impulse Control: Tenuous - Insight and Judgement Insight and Judgement: Fair - Group Participation Particating in Group Activities: Yes - Medication Management Medication Management Adherence: Yes Assessment - Assessment Merits Inpatient Hospitalization: Consolidate Improvements, Pending Safe DC Plan Inpatient DSM-IV Dx: Unspecified Depressive d/o Clinical Impression: 71 y.o. , white female with a history of dependent personality traits and anxiety who has had 2 recent admissions to the [facility], transferred from the medical service following intubation and ICU stabilization s/p suicidal overdose on ASA. She has numerous past failed med trials and is currently only taking propranolol for anxiety. Plan - Plan Treatment Plan: Name: CANDY JUDD Birthdate: 1945 [id number] Patient on propranolol 10mg PO BID. Start sertraline 25mg PO BID. Consider d/ c to home tomorrow pending safety planning with sisters. Continued Medication Management: Start Medication Medications: Current Medications Acetaminophen (Tylenol Tab*) 650 mg PO Q4H PRN PRN Reason: for pain; or Temp >101 F Al Hydrox/Mg Hydrox/Simethicone (Maalox Plus*) 30 ml PO Q4H PRN PRN Reason: INDIGESTION Hydroxyzine HCl (Atarax Tab*) 25 mg PO Q6H PRN PRN Reason: AGITATION/ANXIETY/INSOMNIA Multivitamins (Theragran Tab*) 1 tab PO DAILY TIA Last Admin: 03/19/17 08:14 Dose: 1 tab Propranolol HCl (Inderal Tab*) 10 mg PO BID TIA Last Admin: 03/19/17 08:14 Dose: 10 mg Sertraline HCl (Zoloft*) 25 mg PO DAILY [facility] Throat Lozenges (Chloraseptic Una*) 1 una PO Q2H PRN PRN Reason: SORE THROAT Last Admin: 03/19/17 07:09 Dose: 1 una - Discharge Plan Discharge Plan: Outpatient Follow Up Outpatient Program: [facility]
[2017-03-19] MEDS: Sertraline* 25 MG TAB PO SCH (16:04)
[2017-03-20 08:07] VITALS: BP 105/42
[2017-03-20] MEDS: Propranolol TAB* 10 MG PO SCH (08:09)
[2017-03-20] MEDS: Vitamin THERAPEUTIC TAB PO SCH (08:16)
[2017-03-20] MEDS: Sertraline* 25 MG TAB PO SCH (08:16)
--- NOTE | 2017-03-20 16:23 | DS ---
DATE OF ADMISSION: 03/16/2017. DATE OF DISCHARGE: 03/20/2017. DISCHARGE DIAGNOSES: AXIS I: Unspecified anxiety disorder. AXIS II: Dependent personality disorder. AXIS III: Status post aspirin overdose, valvular heart disease, sinus problem, irritable bowel syndrome, celiac disease, osteoarthritis. AXIS IV: Moderate, primary support stressors. AXIS V: At the time of admission was 44 and at the time of discharge is 59. CONDITION AT THE TIME OF DISCHARGE: Improved. The patient continues to deny suicidal ideations. Her affect is full and she has been safe on all checks. She has been out in the milieu being social, visiting with her sister and chatting with peers. She is agreeable with outpatient follow-up in the community and is tolerating her new medication quite well. She is future oriented, indicating to me that she looks forward to taking care of her cats and her dog in her home in [place], [place]. 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 She shows no indication whatsoever of self-harm and she is telling me that she is glad to be alive and hopes that she never does something similar to this overdose in the future. MENTAL STATUS EXAMINATION: The patient is an aging white female who is clean and well-groomed with long white hair. She is wearing a sweatshirt and sweatpants, up ambulating with a walker. She is calm, cooperative, easy to establish a rapport with and makes good eye contact. Speech has a normal rate, tone and volume. Mood is euthymic with a full affect. Thought process is linear and goal directed. Thought content significant for her desire to return home. She denies suicidal or homicidal ideations. She denies auditory or visual hallucinations. Insight and judgment are fair given her willingness to follow-up with outpatient treatment. Cognitively, she is awake and alert with what would appear to be an average intellect. DISCHARGE INSTRUCTIONS TO THE PATIENT: A. Medications: She is taking Propranolol 10 mg p.o. b.i.d. and Sertraline 50 mg p.o. daily. B. Diet: Regular. C. Activities: As tolerated. The patient is a nonsmoker. There are no laboratory or diagnostic studies pending at the time of discharge. D. Follow-up care: The patient will follow-up with the [facility] where she sees a psychotherapist on a weekly basis. She is also working with Dr. Marta Hyde on medical psychiatric management. HOSPITAL COURSE - PART A: Reason for admission: The patient is a 71-year-old, , white female with a history of unspecified anxiety disorder with two prior hospitalizations within 2017 at the [facility] of [facility] who is transferred from the Hospitalist Service following medical clearance from a very significant overdose on aspirin which occurred on 03/05/2017. The patient was brought to the hospital and hospitalized in the ICU where she had a treatment course that was complicated by respiratory distress and delirium. She needed intubation as well as IV antibiotics, presumably for aspiration pneumonia. On examination, the patient initially had very little recollection of the thought process which led her to the decision to overdose. She could not recall her reasons for doing so, although she did remember vaguely consuming the bottle of [id number] aspirin. At times, she was agitated and delirious during her medical hospitalization; however, by the time she was transferred to our care, she was calm, cooperative, alert and oriented. At the time of admission to the Behavioral Science Unit, she was denying suicidal ideations, denying neurovegetative symptoms of depression. In fact, she was telling me that she needed to go home immediately so that she could continue taking care of her dog and her five cats. The patient was minimizing towards the suicide attempt in spite of the fact that it required over a week of ICU treatment. She did indicate that she continued to struggle with episodic anxiety for which she was already receiving treatment at the [facility]. HOSPITAL COURSE - PART B: Psychiatric treatment rendered: The patient was admitted to the Adult Behavioral Health Unit where she was placed on q.15 minute checks for her own safety. We did initiate a trial of Sertraline 25 mg p.o. daily which she appeared to tolerate well. We also kept her on Propranolol 10 mg twice daily which she seems to benefit from in terms of reduction in anxiety. The patient was visited on the unit by both her sister as well as her son and her xgvuaijz-dl-dar. She was safe on all checks and continued to deny suicidal ideations throughout the entire hospitalization. On our unit, she was visible, open with peers, going to groups. She has a good relationship with her therapist at [facility] and is agreeable to continuing treatment there in that setting. At this time, she continues to be safe and we have no reason to keep her any further on an involuntary status. For this reason, she is being discharged to a less restrictive setting. I will say that although the acute risk for suicidal ideations have diminished during this hospitalization, she does remain at some chronic risk due to the fact that she has documented personality disorder and because she now has a history of at least two suicide attempts via overdose. We have spoken with her sister, Pari, who is in support of the discharge plan and will be arriving to the hospital to take the patient home. [id number]/[facility] #: [id number] JULIA
== END 2017-03-20 14:01 | disposition home or self-care (01) | DRG 880 ==
LOC: BSU 14:37
PROVIDERS: ADMIT Psychiatry & Neurology Psychiatry; ATTEND Psychiatry & Neurology Psychiatry
DX: F41.9 Anxiety disorder, unspecified (principal); F60.7 Dependent personality disorder; K58.9 Irritable bowel syndrome, unspecified; K90.0 Celiac disease; M19.90 Unspecified osteoarthritis, unspecified site; Z79.899 Other long term (current) drug therapy; Z88.0 Allergy status to penicillin; Z88.2 Allergy status to sulfonamides; Z87.891 Personal history of nicotine dependence; I25.10 Atherosclerotic heart disease of native coronary artery without angina pectoris
CPT/HCPCS: 99222; 99231; 99238; A9270-GY

== ENCOUNTER 2017-06-29 08:48 | Day surgery (SDC) | payer MEDICARE ==
[~2017-06-29 08:48] MED LIST: Buffered Lidocaine 0.9% SYRIN* 5 ML/SYR SYRINGE INTRADERM ONE; Dexamethasone IV* 4 MG/ML 1 ML (4 MG) IV SLOW PU ONE; Famotidine IV* 10 MG/ML 2 ML (20 mg) IV ONE
[2017-06-29] MEDS ORDERED: Dexamethasone IV* 4 MG/ML 1 ML (4 MG) ONE (08:58)
[2017-06-29] MEDS ORDERED: Famotidine IV* 10 MG/ML 2 ML (20 mg) ONE (08:58)
[2017-06-29] MEDS ORDERED: fentaNYL* 50 MCG/ML 2 ML VIAL (100 MCG VIAL) ONE (09:38)
[2017-06-29] MEDS ORDERED: Midazolam* 1 MG/ML 2 ML VIAL (2 MG) ONE (09:38)
[2017-06-29] MEDS ORDERED: Acetic Acid 0.25%* 250 ML BTL ONE (09:40)
[2017-06-29] MEDS ORDERED: Iodine Strong (LUGOL'S)* 14 ML BTL ONE (09:40)
[2017-06-29] MEDS ORDERED: Ferric Subsulfate* 8 ML BTL ONE (09:40)
[2017-06-29] MEDS ORDERED: Lidocaine 1% INJ* 10 MG/ML 30 ML SDV ONE (09:41)
[2017-06-29] MEDS ORDERED: Glycopyrrolate IV* 0.2 MG/ML 1 ML VIAL ONE (10:20)
[2017-06-29] MEDS ORDERED: oxyCODONE/Acetamin 5/325 MG* TAB PO PRN (10:28)
[2017-06-29] MEDS ORDERED: Ibuprofen TAB* 600 MG PO PRN (10:29)
[2017-06-29] MEDS ORDERED: Naloxone* 0.4 MG/ML 1 ML VIAL IV PRN (10:32)
[2017-06-29] MEDS ORDERED: Ibuprofen TAB* 600 MG ONE (10:46)
[2017-06-29 12:00] VITALS: BP 146/91
--- NOTE | 2017-06-29 22:21 | OP ---
DATE OF OPERATION: 06/29/17 - [facility] DATE OF : 43 SURGEON: Anatoliy Mike MD ANESTHESIOLOGIST: Everardo Cooley MD ANESTHESIA: Sedation with local. PRE-OP DIAGNOSIS: Persistent low-grade dysplasia. POST-OP DIAGNOSIS: Persistent low-grade dysplasia. OPERATIVE PROCEDURE: Colposcopy, Jack cone biopsy size small, endocervical curettage. FINDINGS: Midline small cervix. The patient has a cystocele, midline small cervix cystocele and there is a small amount of urethral prolapse and there are no acetowhite changes seen. No abnormal vessel seen. The patient has three round moles on the right labia that have no ulceration and are uniform in color. ESTIMATED BLOOD LOSS: Minimal, less than 20 cc. SPECIMEN: Cone biopsy with the cut at 12 o'clock. There is a more superficial portion of the cervix from 9 to 12 o'clock and then endocervical curettage. FLUIDS: Per Anesthesia. DRAINS: None. DESCRIPTION OF PROCEDURE: The patient was brought to the operating room. When sedation was found to be adequate, the patient was draped in the dorsal lithotomy position. There was no vaginal prep as the colposcopy was going to be performed. Time-out was performed. Colposcopy was performed with the above findings noted. A size small Jack cone biopsy was done and sent to pathology. The cut is at 12 o'clock. There was a more superficial specimen from 9 to 12 o'clock done just prior to the cone. The cone is a deeper specimem. After the cone biopsy, endocervical curettage was performed. Excellent hemostasis was achieved with the application of Monsel solution. All instruments were removed from the vagina. A coated graves speculum was used for the procedure. Excellent hemostasis was confirmed and the patient was brought to the recovery room awake and in stable condition. There were sequential compression devices in the operating room and will be used in the recovery room until the patient is ambulating regularly. [id number]/[facility] #: [id number] MTDD
== END 2017-06-29 11:54 | disposition home or self-care (01) ==
LOC: OR 08:48
PROVIDERS: ATTEND Obstetrics & Gynecology
DX: D06.9 Carcinoma in situ of cervix, unspecified (principal); N81.10 Cystocele, unspecified; Z87.891 Personal history of nicotine dependence; R01.1 Cardiac murmur, unspecified; M19.90 Unspecified osteoarthritis, unspecified site; K58.9 Irritable bowel syndrome, unspecified
CPT/HCPCS: 88305; 88307; A9270-GY; J1100; J2250; J3010

== ENCOUNTER 2017-07-11 17:02 | Emergency (ER) | payer MEDICARE ==
[2017-07-11] MEDS ORDERED: Albuterol/Ipratropium NEB.SOL* Albuterol 2.5 MG/Ipratropium 0.5 MG 3 ML ONE (17:21)
[2017-07-11 17:38] LABS: ABS Basophils 0.1 10^3/ul (0-0.2); ABS Eosinophils 0.2 10^3/ul (0-0.6); ABS Lymphocytes 1.6 10^3/ul (1.0-4.8); ABS Monocytes 0.8 10^3/ul (0-0.8); ABS Neutrophils 8.9 10^3/ul (1.5-7.7); ABS Nucleated RBC 0 10^3/ul; Eosinophil % 1.5 % (0-6); Hematocrit 40 % (35-47); Mean Corpuscular HGB Conc 33 g/dl (31-36); Mean Corpuscular Hemoglobin 27 pg (27-31); Mean Corpuscular Volume 82 fL (80-97); Mean Platelet Volume 7 um3 (7.4-10.4); Nucleated Red Blood Cells % 0; Platelet Count 309 10^3/ul (150-450); Red Blood Count 4.83 10^6/ul (4.0-5.4); Red Cell Distribution Width 15 % (10.5-15); White Blood Count 11.5 10^3/ul (3.5-10.8)
[2017-07-11] MEDS: Albuterol/Ipratropium NEB.SOL* Albuterol 2.5 MG/Ipratropium 0.5 MG 3 ML INH SCH ×2 (17:38→17:55)
[2017-07-11 17:54] LABS: EGFR Non-African American 71.5 (>60)
--- NOTE | 2017-07-11 18:07 | RAD ---
HISTORY: Shortness of breath COMPARISONS: March 14, 2017 VIEWS: 4: Frontal dual-energy and lateral views of the chest. FINDINGS: CARDIOMEDIASTINAL SILHOUETTE: The cardiomediastinal silhouette is normal. LORE: The lore are normal. PLEURA: The costophrenic angles are sharp. No pleural abnormalities are noted. LUNG PARENCHYMA: There is hyperinflation with flattening of the diaphragm and expansion of the AP diameter of the chest. ABDOMEN: The upper abdomen is clear. There is no subphrenic gas. BONES AND SOFT TISSUES: Degenerative changes are noted along the spine. OTHER: None. IMPRESSION: HYPERINFLATION, CONSISTENT WITH COPD. NO ACTIVE CARDIOPULMONARY DISEASE.
[2017-07-11] MEDS ORDERED: methylPREDNISolone 125 MG* 2 ML VIAL IV ONE (18:20)
[2017-07-11] MEDS ORDERED: Albuterol HFA INHALER* 8 gm MDI INH PRN (18:48)
--- OUTSIDE RECORDS SUMMARY | 2017-07-11 19:06 | XMS REPORT ---
:1945 External Reference #:[id number] Author Organization [facility] Address [address] [place] [address] Phone [phone] Care Team Providers Name Role Phone Seth Gama M.D. Primary Care Physician Unavailable Payers Type Date Identification Numbers Payment Provider Subscriber Medicare Primary Effective: Policy Number: Medicare Lauren Cruzd 2009 [id number] PayID: [id number] [address] [address] [place] [address] [facility] Part B Effective: Policy Number: [facility] United See Marley 2012 [id number] Healthcare PayID: [id number] [address] [place] [address] Problems Date Description Provider Status Onset: 04/11/2012 Prolapse of female genital organs Anatoliy Mike M.D. Active Family History Date Family Member(s) Problem(s) Comments Father due to Lung Cancer () Mother due to Ovarian Cancer () - diagnosed age 69 Children 1 First Son A&W Siblings 4 First Brother Hypercholesterolemia Second Brother Obesity First Sister Obesity First Sister Breast Cancer Diagnosed age 68 (2015) Second Sister A&W Paternal Grandfather due to Unknown Causes () Paternal Grandmother due to Unknown Causes () Maternal Grandfather due to Unknown Causes () Maternal Grandmother due to Unknown Causes () Social History Type Date Description Comments Raised by Biological Mother & Father Order Oldest child of 5 Childhood Environment Normal Education Highest level completed, 1 year of college Marital Status Single Lives With Alone Diet Healthy, Well Balanced Smoke-Free Home is not smoke-free Occupation book keeper Occupation Unemployed Cigarette Use Former Cigarette Smoker 5-10 Cigarettes x 12 years Daily ETOH Use Denies alcohol use Recreational Drug Use Denies Drug Use Smoking Patient is a former smoker Daily Caffeine Consumes on average 2 cups of coffee per day Exercise Type/Frequency Exercises regularly Seat Belt/Car Seat Always uses seat belt Currently Active Patient is currently not sexually active Contraceptive Methods Current methods include tubal ligation STD's HPV STD's HSV2 Allergies, Adverse Reactions, Alerts Date Description Reaction Status Severity Comments 04/03/2012 Penicillin active 08/21/2016 Sulfa Antibiotics Unknown Reaction Details active Medications Medication Date Status Form Strength Qnty SIG Indications Ordering Provider Ibuprofen Active Tablets 600mg 20tabs 1 by mouth Dvorah 018 q6 hours as ashly Mike M.D. Aleve Active Tablets 220mg 1 po q6hr Unknown 000 prn Propranolol HCL 0 Active Tablets 10mg one tablet Unknown 000 po bid Sertraline HCL Active Tablets 50mg 1 by mouth Unknown 000 every day Ultram Hx Tablets 50mg 30tabs Every 6 Unknown 017 - Hours prn For pain 017 Vagifem Hx Tablets 10mcg 18tabs one tablet Dvora 014 - vaginally Cee dailyx 14 M.D. 018 days then 2x/week Vagifem 00/0 Hx Unknown 000 - 014 Replens Vaginal 0 Hx Unknown Moisturizer 000 - 014 Fexofenadine 00/0 Hx prn Unknown HCL 000 - 017 Valium 000 Hx Tablets 5mg 1 po prn Unknown 000 - 016 Ibuprofen 0 Hx Tablets 200mg take 1 Unknown 000 - tablets by mouth every 016 6 hours as needed for pain. Medications Administered in Office Medication Date Status Form Strength Qnty SIG Indications Ordering Provider PT SCRN Tbco Administered Injection Dvora Id as Non User 018 Juli Mike Vital Signs Date Vital Result Comment 06/25/2017 BP Systolic 120 mmHg BP Diastolic 70 mmHg Body Temperature 98.1 F Heart Rate 60 /min Respiratory Rate 14 /min Height 63.5 inches 5'3.50" Weight 152.00 lb BMI (Body Mass Index) 26.5 kg/m2 Last Menstrual Period [id number] 1 Parity 1 12/26/2016 BP Systolic 114 mmHg BP Diastolic 72 mmHg Height 63.5 inches 5'3.50" Weight 149.00 lb BMI (Body Mass Index) 26.0 kg/m2 1 Parity 1 09/14/2016 BP Systolic 120 mmHg BP Diastolic 70 mmHg Height 65.75 inches 5'5.75" Weight 150.00 lb BMI (Body Mass Index) 24.4 kg/m2 Last Menstrual Period [id number] 1 Parity 1 08/21/2016 BP Systolic 149 mmHg BP Diastolic 85 mmHg Body Temperature 97.5 F Heart Rate 71 /min Respiratory Rate 18 /min Height 65.75 inches Weight 152.00 lb BMI (Body Mass Index) 24.7 kg/m2 05/10/2016 BP Systolic 138 mmHg BP Diastolic 72 mmHg Height 64 inches 5'4" Weight 150.00 lb BMI (Body Mass Index) 25.7 kg/m2 Last Menstrual Period [id number] 1 Parity 1 04/19/2016 BP Systolic 130 mmHg BP Diastolic 70 mmHg Height 64 inches 5'4" Weight 152.00 lb BMI (Body Mass Index) 26.1 kg/m2 Last Menstrual Period [id number] 1 Parity 1 03/01/2016 BP Systolic 110 mmHg BP Diastolic 66 mmHg Height 64 inches 5'4" Weight 151.00 lb BMI (Body Mass Index) 25.9 kg/m2 1 Parity 1 03/22/2015 BP Systolic 130 mmHg BP Diastolic 80 mmHg Height 63.5 inches 5'3.50" Weight 142.00 lb BMI (Body Mass Index) 24.8 kg/m2 Last Menstrual Period 1441282 1 Parity 1 02/25/2015 BP Systolic 116 mmHg BP Diastolic 68 mmHg Height 63.5 inches 5'3.50" Weight 144.00 lb BMI (Body Mass Index) 25.1 kg/m2 1 Parity 1 10/28/2014 BP Systolic 102 mmHg BP Diastolic 68 mmHg Height 65 inches 5'5" Weight 144.00 lb BMI (Body Mass Index) 24.0 kg/m2 Last Menstrual Period 5133782 07/29/2014 BP Systolic 120 mmHg BP Diastolic 74 mmHg Height 65 inches 5'5" Weight 142.00 lb BMI (Body Mass Index) 23.6 kg/m2 Last Menstrual Period 4296582 1 Parity 1 02/18/2014 BP Systolic 130 mmHg BP Diastolic 72 mmHg Height 65 inches 5'5" Weight 150.00 lb BMI (Body Mass Index) 25.0 kg/m2 Last Menstrual Period [id number] 1 Parity 1 07/17/2012 BP Systolic 106 mmHg BP Diastolic 70 mmHg Height 64 inches 5'4" Weight 150.00 lb BMI (Body Mass Index) 25.7 kg/m2 04/11/2012 BP Systolic 110 mmHg BP Diastolic 80 mmHg Height 64 inches 5'4" Weight 150.00 lb BMI (Body Mass Index) 25.7 kg/m2 1 Parity 1 04/03/2012 BP Systolic 114 mmHg BP Diastolic 78 mmHg Height 64 inches 5'4" Weight 150.00 lb BMI (Body Mass Index) 25.7 kg/m2 1 Parity 1 Results Test Date Test Result H/L Range Note Laboratory test finding 12/26/2016 Cytology SEE RESULT BELOW 1 Human Papilloma Virus Rna POSITIVE Negative 2 Laboratory Studies 08/21/2016 Absolute Basophils (auto) 0.1 10^3/ul 0- 0.2 Absolute Eosinophils (auto) 0 10^3/ul 0-0.6 Absolute Lymphocytes (auto) 1.3 10^3/ul 1.0-4.8 Absolute Monocytes (auto) 1.1 10^3/ul High 0-0.8 Absolute Neutrophils (auto) 11.4 10^3/ul High 1.5-7.7 Alanine Aminotransferase (Alt/SGPT) 18 U/L 7-52 Albumin 4.1 g/dL 3.2-5.2 Albumin/Globulin Ratio 1.5 1-3 Alkaline Phosphatase 73 U/L 34-104 Amylase Level 48 U/L 29-103 Anion Gap 6 mmol/L 2-11 Aspartate Amino Transf (Ast/Sgot) 23 U/L 13-39 B-Type Natriuretic Peptide 12 pg/mL BUN/Creatinine Ratio 16.0 8-20 Basophils (%) (Auto) 0.5 % 0-2 Blood Urea Nitrogen 13 mg/dL 6-24 C-Reactive Protein 1.10 mg/L 0-5.00 Calcium Level 9.7 mg/dL 8.6-10.3 Carbon Dioxide Level 27 mmol/L 22-32 Chloride Level 99 mmol/L Low 101-111 Creatinine 0.81 mg/dL 0.51-0.95 Eosinophils (%) (Auto) 0.1 % 0-6 Estimated GFR () 89.6 Estimated GFR (Non- 69.7 Globulin 2.8 g/dL 2-4 Glucose Level 84 mg/dL 70-100 Hematocrit 43 % 35-47 Hemoglobin 14.0 g/dL 12.0-16.0 Lactic Acid Level 1.3 mmol/L 0.5-2.0 Lipase 25 U/L 11.0-82.0 Lymphocytes (%) (Auto) 9.1 % Low 25-47 Mean Corpuscular Hemoglobin 28 pg 27-31 Mean Corpuscular Hemoglobin Concent 33 g/dL 31-36 Mean Corpuscular Volume 87 fL 80-97 Mean Platelet Volume 7 um3 Low 7.4-10.4 Monocytes (%) (Auto) 7.9 % 1-9 Neutrophils (%) (Auto) 82.4 % 38-83 Nucleated RBC Absolute Count (auto) 0.01 10^3/ul Nucleated Red Blood Cells % 0 Platelet Count 296 10^3/ul 150-450 Potassium Level 4.2 mmol/L 3.5-5.0 Red Blood Count 4.94 10^6/ul 4.0-5.4 Red Cell Distribution Width 14 % 10.5-15 Sodium Level 132 mmol/L Low 133-145 Total Bilirubin 0.30 mg/dL 0.2-1.0 Total Creatine Kinase 61 U/L 10-223 Total Protein 6.9 g/dL 6.4-8.9 Troponin I 0.01 ng/mL Urine Specific [place] 1.016 1.010-1.030 Urine pH 6.0 5-9 White Blood Count 13.8 10^3/ul High 3.5-10.8 Laboratory test 05/10/2016 Surgical Pathology SEE RESULT BELOW 3 finding Laboratory test 04/19/2016 Hepatitis C Nonreactive Nonreactive 4 finding Antibody Laboratory test 03/01/2016 Cytology SEE RESULT BELOW 5 finding Human Papilloma Virus Rna POSITIVE Negative 6 Laboratory test finding 03/22/2015 Surgical Pathology SEE RESULT BELOW 7 Laboratory test finding 02/25/2015 Cytology SEE RESULT BELOW 8 Human Papilloma Virus Rna POSITIVE Negative 9 1 SEE RESULT BELOW Name: MAYI MARLEY : [address]: Anatoliy Mike MD Acct: [id number] Unit: [id number] AGE: 71 Location: [facility] Re12/26/16 SEX: F Status: REG REF SPEC: [id number] CESAR: 12/26/[address]: Anatoliy Mike MD REQ: [id number] RECD: 12/26/16 STATUS: SOUT _ ORDERED: TP IMAGE ANAL, [facility] PHYS INTERP, HPV/Thin Prep COMMENTS: [id number] FINAL DIAGNOSIS EPITHELIAL CELL ABNORMALITIES Low grade squamous intraepithelial lesion (LSIL) A. Ectocervical/Endocervical Specimen Adequacy: Satisfactory of evaluation Transformation zone component identified Patient Information: HPV: High risk HPV RNA testing regardless of pap results. Actual Specimen Date: 12/26/16 LMP If Unknown: 1986 Date of Last Specimen: 03/01/16 Post Menopausal?: Y Date Time Test Result Flag (u) Normal Range 12/26/16 1137 HPV RNA POSITIVE H Negative The high-risk HPV types detected by the assay include: 16, 18, 31, 33, 35, 39, 45, 51, 52, 56, 58, 59, 66, and 68. Signed (signature on file) Romeo Das MD 9588 This Pap test was evaluated with the assistance of the EndorphMePrep Test Imaging System. Due to cytologic findings at the club steward microscope, comprehensive manual rescreening by a Senior Telecommunications Technician may be required. The Pap Smear is a screening test designed to aid in the detection of premalignant and malignant conditions of the uterine cervix. It is not a diagnostic procedure and should not be used as the sole means of detecting cervical cancer. Both false- positive and false- negative reports do occur. Depending on your risk status, a Pap smear should be obtained and evaluated every 1-3 years. END OF REPORT * ML=Testing performed at Main Lab DEPARTMENT OF PATHOLOGY, [address] [place] [address] Romeo Das M.D. Director [facility] # [id number] 2 The high-risk HPV types detected by the assay include: 16, 18, 31, 33, 35, 39, 45, 51, 52, 56, 58, 59, 66, and 68. 3 SEE RESULT BELOW Name: MAYI MARLEY : [address]: Anatoliy Mike MD Acct: [id number] Unit: [id number] AGE: 70 Location: [facility] Re05/10/16 SEX: F Status: REG REF SPEC: [id number] CESAR: 05/10/16-[address] [facility] [address]: Anatoliy Mike MD REQ: [id number] RECD: 05/11/16 STATUS: SOUT _ ORDERED: LEVEL IV COMMENTS: [id number] FINAL DIAGNOSIS Uterus, endocervix, curettage: -- Minute fragments of atrophic squamous mucosa with no evidence of HPV- related viral cytopathic effect or squamous dysplasia. PRE-OPERATIVE DIAGNOSIS Low grade squamous intraepithelial lesion, positive human papilloma virus GROSS DESCRIPTION The specimen is received with no source identified and a requisition labeled , ECC, and consists of 30 mL of clear formalin. No tissue is identified. The specimen is entirely submitted for cell block preparation. Signed (signature on file) Mayi Long MD 02/17 1054 END OF REPORT * ML=Testing performed at Main Lab DEPARTMENT OF PATHOLOGY, [address] [place] [address] Romeo Das M.D. Director [facility] # [id number] 4 [id number] 5 SEE RESULT BELOW Name: MAYI MARLEY : [address]: Anatoliy Mike MD Acct: [id number] Unit: [id number] AGE: 70 Location: [facility] Re03/01/16 SEX: F Status: REG REF SPEC: [id number] CESAR: 03/01/16-[address] [facility] [address]: Anatoliy Mike MD REQ: [id number] RECD: 03/01/166586 STATUS: SOUT _ ORDERED: IMAGE ANALYSIS, PAP SM PATH REV, HPV/Thin Prep COMMENTS: [id number] FINAL DIAGNOSIS EPITHELIAL CELL ABNORMALITIES Low grade squamous intraepithelial lesion (LSIL) A. Ectocervical/Endocervical Specimen Adequacy: Satisfactory of evaluation Transformation zone component identified Patient Information: HPV: High risk HPV RNA testing regardless of pap results. Actual Specimen Date: 03/01/16 LMP If Unknown: 1993 Date of Last Specimen: 02/25/15 Post Menopausal?: Y Previous Abnormal Pap Smears?:Y If Yes, enter Diagnosis: Atypical Squamous cells of uncertain significance. +HPV Date Time Test Result Flag (u) Normal Range 03/01/16 1315 HPV RNA POSITIVE H Negative The high-risk HPV types detected by the assay include: 16, 18, 31, 33, 35, 39, 45, 51, 52, 56, 58, 59, 66, and 68. Signed (signature on file) Romeo Das MD 1624 This Pap test was evaluated with the assistance of the EndorphMePrep Test Imaging System. Due to cytologic findings at the club steward microscope, comprehensive manual rescreening by a Senior Telecommunications Technician may be required. The Pap Smear is a screening test designed to aid in the detection of premalignant and malignant conditions of the uterine cervix. It is not a diagnostic procedure and should not be used as the sole means of detecting cervical cancer. Both false- positive and false- negative reports do occur. Depending on your risk status, a Pap smear should be obtained and evaluated every 1-3 years. END OF REPORT * ML=Testing performed at Main Lab DEPARTMENT OF PATHOLOGY, [address] [place] [address] RUN DATE: 03/02/16 [facility] LAB LIVE PAGE 1 Patient: MAYI MARLEY [id number] (Continued) Romeo Das M.D. Director [facility] # [id number] 6 The high-risk HPV types detected by the assay include: 16, 18, 31, 33, 35, 39, 45, 51, 52, 56, 58, 59, 66, and 68. 7 SEE RESULT BELOW Name: MAYI MARLEY : [address]: Anatoliy Mike MD Acct: [id number] Unit: [id number] AGE: 69 Location: [facility] Re03/22/15 SEX: F Status: REG REF SPEC: [id number] CESAR: 03/22/[address] [facility] [address]: Anatoliy Mike MD REQ: [id number] RECD: 03/22/15 STATUS: SOUT _ ORDERED: LEVEL IV/2 FINAL DIAGNOSIS 1. Uterus, cervix, biopsy: -- Cervical tissue with focal HPV-related viral cytopathic effect and low- grade squamous dysplasia (SAROJ-1/LSIL). 2. Uterus, endocervix, curettage: -- Benign endocervical epithelium, abundant mucus, and detached strips of squamous mucosa with no significant pathologic abnormalities. PRE-OPERATIVE DIAGNOSIS Atypical squamous cells of undetermined significance, positive human papilloma virus GROSS DESCRIPTION 1. The specimen is received in formalin labeled, CX BX, and consists of a 0.4 x 0.2 x 0.2 cm allen-dc irregular soft tissue fragment, which is inked and submitted entirely in one cassette. 2. The specimen is received in formalin labeled, ECC, and consists of a 1.2 x 0.6 x 0.3 cm aggregate of allen irregular soft tissue fragments and dc white mucus. The specimen is submitted entirely in one cassette. Signed (signature on file) Mayi Long MD 1104 END OF REPORT * ML=Testing performed at Main Lab DEPARTMENT OF PATHOLOGY, [address] [place] [address] Romeo Das M.D. Director [facility] # [id number] 8 SEE RESULT BELOW Name: MAYI MARLEY : [address]: Anatoliy Mike MD Acct: [id number] Unit: [id number] AGE: 69 Location: [facility] Re02/25/15 SEX: F Status: REG REF SPEC: [id number] CESAR: 02/25/15-[address] [facility] [address]: Anatoliy Mike MD REQ: [id number] RECD: 02/26/15-9872 STATUS: SOUT _ ORDERED: IMAGE ANALYSIS, PAP SM PATH REV, HPV/Thin Prep FINAL DIAGNOSIS EPITHELIAL CELL ABNORMALITIES Atypical squamous cells of undetermined significance A. Ectocervical/Endocervical Specimen Adequacy: Satisfactory of evaluation Transformation zone component identified Patient Information: HPV: High risk HPV RNA testing regardless of pap results. Actual Specimen Date: 02/25/15 LMP If Unknown: 1986 Spec Date if unknown: 02/2012 Post Menopausal?: Y Date Time Test Result Flag (u) Normal Range 02/25/15 1502 HPV RNA POSITIVE H Negative The high-risk HPV types detected by the assay include: 16, 18, 31, 33, 35, 39, 45, 51, 52, 56, 58, 59, 66, and 68. Signed (signature on file) Romeo Das MD 4763 This Pap test was evaluated with the assistance of the EndorphMePrep Test Imaging System. Due to cytologic findings at the club steward microscope, comprehensive manual rescreening by a Senior Telecommunications Technician may be required. The Pap Smear is a screening test designed to aid in the detection of premalignant and malignant conditions of the uterine cervix. It is not a diagnostic procedure and should not be used as the sole means of detecting cervical cancer. Both false- positive and false- negative reports do occur. Depending on your risk status, a Pap smear should be obtained and evaluated every 1-3 years. END OF REPORT * ML=Testing performed at [facility] Lab DEPARTMENT OF PATHOLOGY, [address] [place] [address] Romeo Das M.D. Director [facility] # [id number] 9 The high-risk HPV types detected by the assay include: 16, 18, 31, 33, 35, 39, 45, 51, 52, 56, 58, 59, 66, and 68. Procedures Date CPT Code Description Status Comment 05/04/2017 Mammogram Completed Mayi Reeder [place] location 05/10/2016 50020 Colposcopy W/Biopsy Completed Cervix/Endocervical Curettage 04/19/2016 90243 Echography Transvaginal Completed 03/22/2015 77043 Colposcopy W/Biopsy Completed Cervix/Endocervical Curettage 04/03/2012 43879 Fitting & Insertion Of Completed Pessary/Intravaginal Support Device 06/04/2008 Colonoscopy Completed Encounters Type Date Location Provider CPT E/M Dx Office Visit 06/25/2017 10:00a [facility] Anatoliy Mike M.D. 83212 R87.612 Office Visit 12/26/2016 11:30a [facility] Anatoliy Mike M.D. 56344 Z87.410 Office Visit 09/14/2016 2:00p [facility] Anatoliy Mike M.D. 02515 R10.2 Office Visit 04/19/2016 3:30p [facility] Anatoliy Mike M.D. 74993 R14.0 Office Visit 03/01/2016 12:30p [facility] Anatoliy Mike M.D. 31386 Z01.411 R14.0 N81.11 Z87.410 Office Visit 02/25/2015 2:00p [facility] Anatoliy Mike M.D. 19745 Z12.4 Z01.411 N81.11 R92.2 Office Visit 10/28/2014 11:30a [facility] Anatoliy Mike M.D. 14741 618.01 V16.49 Office Visit 07/29/2014 11:30a [facility] Anatoliy Mike M.D. 19791 618.01 Office Visit 02/18/2014 12:30p [facility] Anatoliy Mike M.D. 50592 V72.31 618.01 V76.2 V15.89 Office Visit 07/17/2012 1:00p [facility] Office Anatoliy Mike M.D. 35679 618.01 Office Visit 04/11/2012 12:30p [facility] Office Anatoliy Mike M.D. 45086 599.3 618.9 Office Visit 04/03/2012 1:30p [facility] Office Anatoliy Mike M.D. 04862 618.9 618.00 Plan of Care Future Appointment(s):07/20/2017 1:30 pm - Anatoliy Mike M.D. at [facility] 10:45 am - [place] [facility] [place] - Anatoliy Mike M.D.R87.612 Low grade intrepith lesion cyto smr crvx (LGSIL)Comments:Plan: Colposcopy, Jack cone biopsyreviewed risks/benefits /alt with pt and her sister, all ?s answered.Ibuprofen 600mg 1 tab po q6 prn pain #20 to pharmacy in prep for post op
[2017-07-11] MEDS ORDERED: A lbuterol Hfa (PREPAK) 1 MDI - ED TAKE HOME DISPENSING ONLY INHH ONE (19:15)
[2017-07-11 19:52] VITALS: BP 125/58
--- NOTE | 2017-07-12 08:29 | ED ---
Jn Hsieh Nilda, scribed for Joel Haro MD on 07/11/17 at 1716 . Shortness of Breath - HPI Summary HPI Summary: This patient is a 71 year old F presenting to [facility] with a chief complaint of acute, constant SOB with wheezing while at rest for the past 3 days. The patient rates the pain 0/10 in severity. Symptoms aggravated by exertion and alleviated by nothing. Patient reports rhinorrhea, chest tightness, and cough. Patient states no PMHx of asthma or COPD. - History of Current Complaint Chief Complaint: EDShortnessOfBreath Time Seen by Provider: 07/11/17 17:10 Hx Obtained From: Patient Onset/Duration: Sudden Onset, Lasting Days, Still Present Timing: Constant Dyspnea At: Rest Aggrevating Factors: Other - exertion Alleviating Factors: Nothing Associated Signs & Symptoms: Cough (Nonproductive) - Allergy/Home Medications Allergies/Adverse Reactions: Allergies Allergy/AdvReac Type Severity Reaction Status Date / Time MS Penicillins [Penicillins] Allergy Unknown Unknown Verified 06/29/17 09:14 Reaction Details MS Sulfa Antibiotics Allergy Unknown Unknown Verified 06/29/17 09:14 [Sulfa Antibiotics] Reaction Details PMH/Surg Hx/FS Hx/Imm Hx Endocrine/Hematology History: Reports: Hx Anticoagulant Therapy Denies: Hx Diabetes Cardiovascular History: Reports: Hx Hypertension - ON BETA YANELI PT. IS UNSURE OF WHY, Hx Rheumatic Fever - A , Hx Valvular Heart Disease, Other Cardiovascular Problems/Disorders - Rheumatic fever as a child. Denies: Hx Pacemaker/ICD Respiratory History: Reports: Other Respiratory Problems/Disorders - CHRONIC SINUS PROBLEMS-POST NASAL DRIP Denies: Hx Asthma, Hx Chronic Obstructive Pulmonary Disease (COPD) GI History: Reports: Hx Diverticulosis, Hx Hiatal Hernia, Hx Irritable Bowel, Other GI Disorders - FREQ BOWEL MOVEMENTS History: Denies: Hx Dialysis, Hx Renal Disease Musculoskeletal History: Reports: Hx Arthritis - HANDS, Hx Tendonitis - HX OF IN ARMS Denies: Hx Osteoporosis Sensory History: Reports: Hx Contacts or Glasses - READING, Hx Hearing Aid - BILAT, Hx Hearing Problem - "Left ear is plugged.", Other Sensory Impairments - Tinnitus Opthamlomology History: Reports: Hx Contacts or Glasses - READING, Other Sensory Impairments - Tinnitus Neurological History: Reports: Other Neuro Impairments/Disorders - BILAT TINGLING IN FEET Psychiatric History: Reports: Hx Anxiety - ON MEDS, Hx Depression - ON MEDS PT STATES CONTROLLED, Hx Inpatient Treatment, Hx Community Mental Health Tx Denies: Hx Eating Disorder, Hx Panic Disorder, Hx Suicide Attempt, Hx of Violent Episodes Against Others - Cancer History Cancer Type, Location and Year: Dysplasia Hx Chemotherapy: No Hx Radiation Therapy: No - Surgical History Surgery Procedure, Year, and Place: TUBAL LIGATION-1974 WISDOM TEETH REMOVED COLONOSCOPY. Left hand tendon repair post cat bite Hx Anesthesia Reactions: No - Immunization History Date of Tetanus Vaccine: unknown Infectious Disease History: No Infectious Disease History: Denies: Traveled Outside the [place] in Last 30 Days - Family History Known Family History: Positive: Other - breast CA, ovarian CA - Social History Alcohol Use: None Alcohol Amount: WINE ON OCCASION Hx Substance Use: No Substance Use Type: Reports: None Hx Tobacco Use: Yes Smoking Status (MU): Former Smoker Type: Cigarettes Amount Used/How Often: 10YRS HX 1 PPWEEK Have You Smoked in the Last Year: No Review of Systems Positive: Nasal Discharge Positive: Chest Pain - tightness Positive: Shortness Of Breath, Cough, Other - wheezing All Other Systems Reviewed And Are Negative: Yes Physical Exam - Summary Physical Exam Summary: VITAL SIGNS: Reviewed. GENERAL: Patient is a well developed and nourished female with some distress secondary to the shortness of breath. However, she is notable to speak in full sentences. HEAD AND FACE: Normocephalic and atraumatic. EYES: PERRLA, EOMI x 2, No injected conjunctiva. EARS: Hearing grossly intact. Ear canals and tympanic membranes WNL MOUTH: Dry oral mucosa. NECK: Supple, trachea is midline, no adenopathy, no JVD, no carotid bruit. CHEST: Symmetric, No intercostal or abdominal retraction, LUNGS: Diffuse bilateral wheezing and decreased breath sounds. No crackles. CVS: RRR,, S1 and S2 present, no murmurs or gallops appreciated. ABDOMEN: Soft, non-tender. No signs of distention. Positive BS. No rebound, no guarding, and no masses palpated. EXTREMITIES: FROM in all major joints, no edema, no cyanosis or clubbing. NEURO: Alert and oriented x 3. No acute neurological deficits. Speech is normal and follows commands. SKIN: Dry and warm Triage Information Reviewed: Yes Vital Signs On Initial Exam: Initial Vitals Temp Pulse Resp BP Pulse Ox 98.7 F 74 28 123/55 95 07/11/17 17:04 07/11/17 17:04 07/11/17 17:04 07/11/17 17:04 07/11/17 17:04 Vital Signs Reviewed: Yes Diagnostics - Vital Signs Vital Signs Temp Pulse Resp BP Pulse Ox 07/11/17 17:04 98.7 F 74 28 123/55 95 - Laboratory Result Diagrams: 07/11/17 17:26 07/11/17 17:26 Lab Statement: Any lab studies that have been ordered have been reviewed, and results considered in the medical decision making process. - Radiology CXR Radiology Interpretation Completed By: Radiologist - CXR, per radiologist, reveals HYPERINFLATION, CONSISTENT WITH COPD. NO ACTIVE CARDIOPULMONARY DISEASE. Dr. Haro has reviewed this radiology report. - EKG 1713 Cardiac Rate: NL EKG Rhythm: Sinus Rhythm - 73 bpm EKG Interpretation: no ST elevation, nml axis Re-Evaluation - Re-Evaluation First Eval Re-Evaluation Time: 18:28 Change: Improved Comment: Patient is feeling better. Course/Dx - Course Assessment/Plan: This patient is a 71 year old F presenting to [facility] with a chief complaint of acute, constant SOB with wheezing while at rest for the past 3 days that as worsened today. The patient rates the pain 0/10 in severity. Symptoms aggravated by exertion and alleviated by nothing. Patient reports rhinorrhea, chest tightness, and cough. Patient states no PMHx of asthma or COPD. An EKG reveals NSR, 73 bpm, no ST elevation, nml axis. In the ED course an IV access was obtained. 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 Patient was started with IV fluids. She was given multiple duonebs and Solumedrol for her wheezing. Labs without any significant abnormality except for WBC 11.5 w/o a left shift. ABG: Ph 7.45, PCO2: 38 and PO2: 270, O2 sat 99.9. Troponin #1: 0.00. EKG shows a NSR at 73 BPM w/o ST elevations. CXR impression: HYPERINFLATION, CONSISTENT WITH COPD. NO ACTIVE CARDIOPULMONARY DISEASE. Patient is feeling better. She was ambulated with O2 and she maintain a O2 sat or 94. Right not she is 98% at room air. I discussed all the findings and test results with the patient. Patient was instructed to return to the emergency room immediately if any of the symptoms return or worsens. Plan of care was discussed with the patient and understands and agrees. All questions were answered at patient satisfaction. There were no further complaints or concerns. Lung exam before discharge: CTA B/L. Good air exchange. No wheezing or crackles heard. CVS: S1 and S2 present. No murmurs appreciated. Patient is alert and oriented x 3. Patient is hemodynamically stable. Patient will be discharged home with follow up PCP in the next 2-3 days. - Diagnoses Differential Diagnosis/HQI/PQRI: Positive: Asthma, Bronchitis, CHF, COPD Exacerbation, Pneumonia, Pulmonary Edema Provider Diagnoses: COPD exacerbation Discharge - Discharge Plan Condition: Stable Disposition: HOME Prescriptions: Albuterol HFA INHALER* [Ventolin HFA Inhaler*] 1 puff INH Q4H PRN #1 mdi PRN Reason: Dyspnea predniSONE TAB* [Deltasone TAB*] 40 mg PO DAILY #8 tab Patient Education Materials: COPD (Chronic Obstructive Pulmonary Disease) (ED) Referrals: Seth Gama MD [Primary Care Provider] - 3 Days Additional Instructions: RETURN TO THE EMERGENCY DEPARTMENT FOR CHANGING OR WORSENING SYMPTOMS. The documentation as recorded by the Jn muhammad Nilda accurately reflects the service I personally performed and the decisions made by me, Joel Haro MD.
== END 2017-07-11 19:00 | disposition home or self-care (01) ==
LOC: ED 17:02
DX: J44.1 Chronic obstructive pulmonary disease with (acute) exacerbation (principal); F41.9 Anxiety disorder, unspecified; F32.9 Major depressive disorder, single episode, unspecified; Z79.01 Long term (current) use of anticoagulants; I10 Essential (primary) hypertension; Z88.0 Allergy status to penicillin; Z88.2 Allergy status to sulfonamides
CPT/HCPCS: 36415; 36600; 71046; 80053; 82550; 82553; 82803; 83605; 83880; 84484; 85025; 86140; 87040; 87502; 93005; 94640; 99283; A9270-GY; J2930